=== PATIENT | male | born 1955 | race Caucasian/White ===

== ENCOUNTER 2020-12-04 11:26 | Outpatient (CLI) | payer OTHER, SELFPAY | END 2020-12-04 11:27 | disposition home or self-care (01) | LOC: ANHCOVIDVC 11:26 | PROVIDERS: PCP Family Medicine | DX: Z23 Encounter for immunization (principal) | CPT/HCPCS: 0001A; 91300 ==

== ENCOUNTER 2020-12-25 11:24 | Outpatient (CLI) | payer OTHER, SELFPAY | END 2020-12-25 11:25 | disposition home or self-care (01) | LOC: ANHCOVIDVC 11:25 | PROVIDERS: PCP Family Medicine | DX: Z23 Encounter for immunization (principal) | CPT/HCPCS: 0002A; 91300 ==

== ENCOUNTER 2021-08-05 09:28 | Outpatient (CLI) | payer OTHER, SELFPAY ==
--- NOTE | ~2021-08-05 | US_ITS ---
EXAMINATION: US art doppler w danie FERNANDEZ EXAM DATE: 08/05/2021 10:16 INDICATION: R60.0 - Localized edema TECHNIQUE: Segmental pressures and plethysmographic and Doppler waveforms of the brachial and lower e xtremity arteries were obtained. There is no prior study for comparison. FINDINGS: Right and left brachial artery pressures of 135 mm Hg and 153 mm Hg, respectively, are concordant (no rmal difference <= 30 mmHg). The right and left thigh-brachial pressure indices are 1.12, 1.27, resp ectively (normal > 1.2). RIGHT LEG: The ankle-brachial index (ELVIRA) is 1.28 (normal >= 0.9-1). The great toe-brachial index (TBI) is 0.65 (normal >= 0.65). The lower extremity ratios, segmental pressure gradients as follows; Proximal superficial femoral artery:- 1.12 (172 mmHg). Distal superficial femoral artery: ----- 1.16 (177 mmHg). Popliteal: 1.07 (164 mmHg). Dorsalis pedis: 1.17 (179 mmHg). Posterior tibial: 1.28 (196 mmHg). (Normal gradients <= 20-30 mmHg between adjacent levels on the same leg or the same levels on the two legs). Arterial waveforms are biphasic. LEFT LEG: The ankle-brachial index (ELVIRA) is 1.12 (normal >= 0.9-1). The great toe-brachial index (TBI) is 0.66 (normal >= 0.65). The lower extremity ratios, segmental pressure gradients as follows; Proximal superficial femoral artery:- 1.27 (195 mmHg). Distal superficial femoral artery: ----- 1.12 (171 mmHg). Popliteal: 1.17 (179 mmHg). Dorsalis pedis: 1.10 (168 mmHg). Posterior tibial: 1.10 (169 mmHg). (Normal gradients <= 20-30 mmHg between adjacent levels on the same leg or the same levels on the two legs). Arterial waveforms are biphasic through posterior tibial, m onophasic dorsalis pedis. IMPRESSION: 1. Right ankle-brachial index 1.28, normal. 2. Left ankle-brachial index 1.10, normal. 3. Segmental pressures as above. Reviewed, dictated and finalized at location B. HEALTH CASE MANAGER
--- NOTE | ~2021-08-05 | US_ITS ---
EXAMINATION: US venous doppler LE EXAM DATE: 08/05/2021 10:16 INDICATION: R60.0 - Localized edema. Right toe edema. TECHNIQUE: Multiple grayscale, color flow and Doppler images of the lower extremity deep venous syste ms bilaterally were obtained and reviewed. There is no prior study for comparison. FINDINGS: Right side: The right common femoral, femoral and profunda veins demonstrate normal color flow, respi ratory variation, augmentation and compressibility. Compressibility, color flow confirmed within the right popliteal, posterior tibial, peroneal, and greater saphenous veins. Left side: The left common femoral, femoral and profunda veins demonstrate normal color flow, respira tory variation, augmentation and compressibility. Compressibility, color flow confirmed within the l eft popliteal, posterior tibial, peroneal, and greater saphenous veins. IMPRESSION: No lower extremity deep venous thrombosis bilaterally. Reviewed, dictated and finalized at location B. HOUSE SPECIALIST
== END 2021-08-05 09:29 | disposition home or self-care (01) ==
LOC: ANHIMG 09:33
PROVIDERS: PCP Family Medicine; Visit Provider Nurse Practitioner Family
DX: R60.0 Localized edema (principal); M79.89 Other specified soft tissue disorders; L81.9 Disorder of pigmentation, unspecified; E78.5 Hyperlipidemia, unspecified; G62.9 Polyneuropathy, unspecified; I10 Essential (primary) hypertension
CPT/HCPCS: 93923; 93970

== ENCOUNTER → 2021-10-01 09:57 | Outpatient (CLI) | payer OTHER, SELFPAY ==
--- NOTE | ~2021-10-01 | XR_ITS ---
XR foot RT 2V DATE: 10/01/2021 10:16 INDICATION: Localized edema TECHNIQUE: 3 views COMPARISON: None FINDINGS: Mild plantar calcaneal enthesopathy without erosive change or periostitis. There is prominent osteoarthritic change at the first metatarsophalangeal joint. No fracture or dislocation, periosteal reaction or bone destruction. Anterior and posterior tibial artery calcification. 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 NTEER SERVICES SUPERVISOR
== END ==
PROVIDERS: PCP Family Medicine; Visit Provider Nurse Practitioner Family
DX: R60.0 Localized edema (principal); M10.9 Gout, unspecified; M77.31 Calcaneal spur, right foot; M19.071 Primary osteoarthritis, right ankle and foot
CPT/HCPCS: 73620

== ENCOUNTER 2022-03-04 09:32 | Outpatient (CLI) | payer OTHER, SELFPAY ==
--- NOTE | ~2022-03-04 | XR_ITS ---
EXAMINATION: XR abdomen/kub 1V DATE: 03/04/2022 09:54 INDICATION: Left abdominal pain. TECHNIQUE: A supine view of the abdomen on 2 radiographs was obtained. COMPARISON: Abdomen radiographs 03/19/2014, CT abdomen and pelvis 02/28/2007 FINDINGS: There are no dilated loops of bowel. There are phleboliths in the pelvis. The kidneys are o bscured by bowel. There is a 2 mm calcification overlying the right kidney that may be a stone. There are two 2-3 mm stones in left kidney. IMPRESSION: 1. Small stones in the kidneys. Reviewed, dictated and finalized at location A.
== END 2022-03-04 09:33 | disposition home or self-care (01) ==
LOC: ANHIMG 09:34
PROVIDERS: PCP Family Medicine; Visit Provider Nurse Practitioner Family
DX: N20.0 Calculus of kidney (principal); R10.9 Unspecified abdominal pain; Z87.442 Personal history of urinary calculi
CPT/HCPCS: 74018

== ENCOUNTER 2023-11-03 07:29 | Outpatient (CLI) | payer MEDICARE, SELFPAY ==
--- NOTE | ~2023-11-03 | US_ITS ---
EXAMINATION: US abdomen limited DATE: 11/03/2023 08:35 INDICATION: Abnormal levels of other serum enzymes. TECHNIQUE: Multiple grayscale and Doppler ultrasound images of the abdomen were obtained. COMPARISON: None FINDINGS: The pancreatic head and body are normal in appearance. The pancreatic tail is not visualized. Liver has normal contour, with a smooth surface. There is increased parenchymal echogenicity and coarsened echotexture consistent with diffuse hepatic steatosis. No liver lesion identified. No intrahepatic b iliary duct dilation suspected. Portal venous flow was seen in the hepatopetal, normal direction and has normal Doppler waveform. Visualized portion of the right kidney demonstrates normal contour and a xis the with no hydronephrosis. The gallbladder is normal in appearance. There is no cholelithiasis. The common bile duct measures 5 mm, which is normal. Sonographic Floyd sign was reported as negativ e by the hoop flaring machine operator. IMPRESSION: 1. Diffuse hepatic steatosis. Reviewed, dictated and finalized at location L.
== END 2023-11-03 07:30 | disposition home or self-care (01) ==
PROVIDERS: PCP Family Medicine; Visit Provider Nurse Practitioner Family
DX: R74.8 Abnormal levels of other serum enzymes (principal); K76.0 Fatty (change of) liver, not elsewhere classified
CPT/HCPCS: 76705

== ENCOUNTER 2024-11-09 16:02 | Inpatient (IN) | payer MEDICARE, SELFPAY ==
[2024-11-09] VITALS (23 sets, daily range): BP systolic 114–140; BP diastolic 80–96; PULSE 85–121; RESP 18–31; TEMP 36.7–37.2; O2SAT 91–100; BMI 27.1
--- NOTE | ~2024-11-09 | CT_ITS ---
History: Cardiac arrest PROCEDURE: CT head without contrast. COMPARISON: None TECHNIQUE: Axial imaging of the head performed from the skull base to the vertex without IV contrast. Sagittal a nd coronal reformations obtained. DLP: 757 mGy-cm FINDINGS: The ventricles are normal in size, shape and position. There is no mass, mass effect or midline shift. Effacement of the sulci within the posterior cranial fossa is identified. This is likely secondary to edema. Increased attenuation is identified within the venous sinuses as well as the falx and all visualized intracranial vascular structures, suggesting increased intravascular density, rather than acute intra cranial hemorrhage. There is no abnormal extra-axial fluid collection or acute intracranial hemorrhage. Inflammatory change within the bilateral ethmoid and left maxillary sinus. The mastoid air cells are well aerated. No acute displaced fractures within the overlying cranium. Impression: Global intracranial parenchymal edema without acute intracranial hemorrhage or suspicious mass effect , as detailed above. Short-term follow-up is recommended. Reviewed, dictated and finalized at location A. Impression: Global intracranial parenchymal edema without acute intracranial hemorrhage or suspicious mass effect, as detailed above. Short-term follow-up is recommended.
--- NOTE | ~2024-11-09 | XR_ITS ---
XR chest 1V portable 11/10/2024 06:15 Indication: Intubation. Respiratory distress. Procedure: AP portable chest Comparison: No prior studies for comparison. Findings: Heart size normal. Endotracheal tube tip 7.2 cm above the booker. Heart size normal. Mild p ulmonary vascular congestion. No significant effusion or pneumothorax. NG tube in the stomach. Impression: 1: Mild pulmonary vascular congestion. Reviewed, dictated and finalized at location B. Impression: 1: Mild pulmonary vascular congestion.
--- NOTE | ~2024-11-09 | CT_ITS ---
CLINICAL INDICATION: Cardiac arrest COMPARISON: 02/02/2007 TECHNIQUE: Multiple contiguous axial images of the chest, abdomen and pelvis were performed without t he administration of intravenous contrast The dose-length product (DLP) was 1520.66 mGy-cm. Automated exposure control and iterative reconstruction technique were employed. FINDINGS/OBSERVATIONS: LUNG:Endotracheal tube identified with its tip in the thoracic inlet, in good position. Calcified granulomas detected bilaterally. Dense atelectasis within the bilateral lung bases. The remainder of the lungs are otherwise clear. MEDIASTINUM:Orogastric tube extends into the stomach.Limited evaluation of the remainder of the media stinum without intravenous contrast. HEART: The heart is of normal size, without pericardial effusion. SOFT TISSUES OF THE CHEST: Unremarkable. BONES OF THE CHEST: Acute fracture of the right anterolateral rib. No additional fractures are appreciated. No significant degenerative disease is noted. Liver: The liver demonstrates homogeneous attenuation and is not enlarged measuring 16 cm in longitudinal di mension. Gallbladder and biliary system: The gallbladder is only minimally distended, and otherwise unremarkable. Pancreas: Limited evaluation of the pancreas secondary to the lack of intravenous contrast. Spleen: The spleen demonstrates homogeneous attenuation and is not enlarged measuring 8 cm in longitudinal di mension. Kidneys: The bilateral kidneys demonstrate contrast excretion, consistent with patient's history. No hydronephrosis or renal calculi. Adrenal glands: Unremarkable. Gastrointestinal tract: Colonic diverticulosis without surrounding inflammatory change. Appendix: The appendix is not definitively visualized. However, no pericecal inflammatory change is identified suggest the presence of acute appendicitis. Vasculature: Calcified atherosclerotic disease. No abnormal soft tissue attenuation within the bilateral groins mckeon ggesting vascular access vascular access. Lymph nodes: Limited evaluation without intravenous contrast. Pelvic structures: The bladder is decompressed Hess catheter, limiting its evaluation. The prostate gland is not enlarged. Body wall and musculoskeletal: No significant degenerative disease within the lower thoracic or lumbosacral spine. IMPRESSION: Acute fracture involving the anterolateral margin of the right sixth rib, likely from patient's CPR. No additional acute findings within the chest, abdomen or pelvis, as detailed above. Reviewed, dictated and finalized at location A. IMPRESSION: Acute fracture involving the anterolateral margin of the right sixth rib, likel y from patient's CPR. No additional acute findings within the chest, abdomen or pelvis, as detailed above.
--- NOTE | ~2024-11-09 | XR_ITS ---
XR chest-chest tube insert/pos DATE: 11/10/2024 15:27 INDICATION: Left tension pneumothorax TECHNIQUE: Portable upright AP chest on 11/10/2024 at 1520 hours COMPARISON: 11/10/2024 portable AP chest at 1352 hours FINDINGS: There is interval placement of a left chest tube and virtually complete resolution of left tension pneumothorax. There is infiltrate and/atelectasis involving primarily the left lower lung. There is interval approximately 2.4 cm right apical pneumothorax. IMPRESSION: Placement of left thoracostomy tube removal with resolution of left tension pneumothorax. Interval mild right pneumothorax Dr. Olivares telephoned the report of new right pneumothorax on 11/10/2024 at 1635 hours to ICU nurse Sarahi amaya Reviewed, dictated and finalized at [facility]. Reviewed, dictated and finalized at [facility]. IMPRESSION: Placement of left thoracostomy tube removal with resolution of left tension pneumothorax. Interval mild right pneumothorax Dr. Olivares telephoned the report of new right pneumothorax on 11/10/2024 at 1635 h ours to ICU nurse Reyna
--- NOTE | ~2024-11-09 | XR_ITS ---
CHEST RADIOGRAPH CLINICAL HISTORY: Respiratory failure, cardiac arrest . COMPARISON: 11/10/2024 TECHNIQUE: Single portable view of the chest. FINDINGS Left-sided chest tube in position. Findings suggesting pneumomediastinum. Redemonstration of a right-sided pneumothorax, increased in size from previous examination, with 21 m m of separation (approximately 15%). Endotracheal tube is identified with its tip projecting approximately 3.4 cm above the base of the ca mainor. Nasogastric tube identified with its tip extending below the left hemidiaphragm, presumably within th e stomach. The remainder of the cardiomediastinal silhouette is otherwise unremarkable. Blunting of the left costophrenic sulcus suggesting a small left-sided pleural effusion. The remainder of the lungs are clear. IMPRESSION: Redemonstration of a right-sided pneumothorax, increased in size from previous examination, now appro ximately 15%. The left lung is fully inflated. Findings suggesting pneumomediastinum. Small left-sided pleural effusion. The remainder of the lungs are clear. Remaining supportive lines and tubes in good position. Reviewed, dictated and finalized at location [facility]. IMPRESSION: Redemonstration of a right-sided pneumothorax, increased in size from previous examination, now approximately 15%. The left lung is fully inflated. Findings suggesting pneumomediastinum. Small left-sided pleural effusion. The remainder of the lungs are clear. Remaining supportive lines and tubes in good position.
--- NOTE | ~2024-11-09 | XR_ITS ---
XR abdomen gastric tube insert DATE: 11/10/2024 15:40 INDICATION: NG tube readvanced but TECHNIQUE: Portable upright AP view on 11/10/2024 at 1522 hours COMPARISON: 11/09/2024 KUB FINDINGS: NG tube is in satisfactory position in the stomach. IMPRESSION: NG tube in stomach Reviewed, dictated and finalized at [facility]. Reviewed, dictated and finalized at [facility]. IMPRESSION: NG tube in stomach
--- NOTE | ~2024-11-09 | XR_ITS ---
XR chest 1V portable 11/09/2024 16:28 Indication: Confirm placement. Procedure: AP portable chest Comparison: No prior studies for comparison. Findings: Heart size normal. No focal air space disease, pulmonary edema, pleural effusion or suspect ed pneumothorax. Impression: 1: No acute cardiopulmonary disease. Reviewed, dictated and finalized at [facility]. Impression: 1: No acute cardiopulmonary disease.
--- NOTE | ~2024-11-09 | XR_ITS ---
CHEST RADIOGRAPH CLINICAL HISTORY: ett placement . Orogastric tube placement COMPARISON: 11/09/2024 at 4:20 PM approximately 2 hours earlier TECHNIQUE: Single portable view of the chest. Supine images of the lower chest and upper abdomen FINDINGS Endotracheal tube is identified with its tip projecting approximately 5 cm above the base of the gloria na, advancement of approximately 2 cm is suggested for optimal radiographic placement. Orogastric tube identified with its tip extending below the left hemidiaphragm, and projecting over t he stomach. Clip projects over the left atrial appendage. The remainder of the cardiomediastinal silhouette is otherwise unremarkable. The lungs are clear. IMPRESSION: Orogastric tube in good position and ready for immediate use. Endotracheal tube tip projects approximately 5 cm above the base of the booker for which advancement of approximately 2 cm is suggested for optimal radiographic placement. The lungs are clear. Reviewed, dictated and finalized at [facility]. IMPRESSION: Orogastric tube in good position and ready for immediate use. Endotracheal tube tip projects approximately 5 cm above the base of the booker for which advancement of approximately 2 cm is suggested for optimal radiograph ic placement. The lungs are clear.
--- NOTE | ~2024-11-09 | XR_ITS ---
CHEST RADIOGRAPH CLINICAL HISTORY: chest tube placement . COMPARISON: Previous examination, performed on the same day, approximately 6 hours earlier TECHNIQUE: Single portable view of the chest. FINDINGS Redemonstration of a left-sided large bore chest tube extending into the left lung apex. The left lung is fully inflated. Redemonstration of a right-sided pneumothorax, with 21 mm of separation, largely unchanged from prior . Interval placement of a large bore chest tube within the right hemithorax, extending into the sulcus for which withdrawal/repositioning into the apex may provide the necessary suction for reexpansion (v ersus placement with CT guidance). Endotracheal tube tip projects approximately 4.5 cm above the base of the booker. Orogastric tube in good position. IMPRESSION: Persistent right-sided pneumothorax likely secondary to positioning of the tube within a sulcus for w hich withdrawal/repositioning into the apex may provide the necessary suction for reexpansion of the right lung. No evidence of mediastinal shift. The left lung is fully inflated. Remaining support catheters and tubes are in good position. Reviewed, dictated and finalized at location [facility]. IMPRESSION: Persistent right-sided pneumothorax likely secondary to positioning of the tube within a sulcus for which withdrawal/repositioning into the apex may provide t he necessary suction for reexpansion of the right lung. No evidence of mediastinal shift. The left lung is fully inflated. Remaining support catheters and tubes are in good position.
--- NOTE | ~2024-11-09 | XR_ITS ---
XR chest 1V portable 11/10/2024 13:57 Indication: Respiratory distress Procedure: AP view of the chest Comparison: 11/10/2024 Findings: There is a new large left pneumothorax which is obscured by overlying lines. There is media stinal shift to the right. There is opacification the right hemithorax which may reflect edema. Heart size normal. NG tube tip in the stomach. Recommend advancement. Endotracheal tube tip approximately 5.1 cm above the booker. Impression: 1: New large left pneumothorax with mediastinal shift to the right. 2: Interval development of opacification of the right hemithorax which may reflect atelectasis or magy ma. Dr. Efren Reddy discussed with the patient's nurse Severo Lovett at 11/10/2024 14:03 CDT. Reviewed, dictated and finalized at location [facility]. Impression: 1: New large left pneumothorax with mediastinal shift to the right. 2: Interval development of opacification of the right hemithorax which may refl ect atelectasis or edema. Dr. Efren Reddy discussed with the patient's nurse Severo Lovett at 11/10/2024 14 :03 CDT.
--- NOTE | 2024-11-09 16:16 | ECG_ITS ---
Test Date: 2024-11-09 16:07:36 Measurements Intervals [place] Rate: 91 P: 0 OK: 0 QRS: -7 QRSD: 96 T: 1 QT: 397 QTc: 490 Interpretive Statements POSSIBLE ATRIAL FIBRILLATION MARKED ST ELEVATION IN THE INFEROLATERAL LEADS ACUTE NC No previous ECG available for comparison Electronically Signed On 11-09-2024 18:40:51 CDT by Landen Mercer M.D.
--- NOTE | 2024-11-09 16:19 | ED_ITS ---
HPI - CPR General Chief Complaint: Cardiac Arrest/CPR Stated Complaint: ROSC/STEMI Time Seen by Provider: 11/09/24 16:13 Source: family ( and daughter) and EMS Mode of arrival: EMS Limitations: clinical condition History of Present Illness HPI narrative: EMS was called for a patient unconscious but breathing, possibly agonal. It is reported that patient had been complaining of gas and chest pain for the past week, thought to be reflux. Lost pulses on scene and CPR immediately initiated. BS 86mg/dL. Initially attempted iGel but difficulty so intubated. Initially bagging well but then with difficulty. Tube removed and in doing so removed what appeared to be bread, presumably patient choked. Patient deep suctioned and Patient re-intubated - size 7 ETT 24 at the teeth. Patient received 2 doses of epinephrine. First pulse check pulseless with VFib. Defibrillated x1. Total compressions 10 minutes (2 manually and 8 minutes Faisal device). ROSC with patient breathing. Given 10 Versed total for sedation. Access Left antecubital fossa and left IO. Post ROSC EKG concerning for STEMi given elevations in II, III, avf. and daughter confirm he had been complaining of what he thought was heartburn/indigestion. Related Data Allergies Allergy/AdvReac Type Severity Reaction Status Date / Time Penicillins Allergy Unknown Unknown Verified 11/09/24 16:35 ezetimibe (From Zetia) AdvReac Mild Gastrointestinal Verified 11/09/24 16:35 Upset [id number] Reductase AdvReac Mild Muscle Pain Verified 11/09/24 16:35 Inhibitor PMFSH Past Medical History Medical History Screening for malignant neoplasm of prostate declined Hyperlipidemia BMI 25.0-25.9,adult Body mass index [BMI] 25.0-25.9, adult (12/08/16) Pain in both feet Pain in left foot Peripheral polyneuropathy Tarsal tunnel syndrome of both lower extremities Hypertension History of kidney stones BMI 26.0-26.9,adult Family History Family History Mother Hypertension Father Cancer of kidney Lung cancer Tobacco abuse Sibling Lung cancer Tobacco abuse Social History Social History Smoking packs per day: 2 Smoking cigarettes per day: 40.0 Years smoked: 30 Smoking pack-years: 60.00 Smoking status: Former smoker Tobacco type: cigarettes Second hand tobacco smoke exposure: No Smoking end date: 08/12/05 Alcohol intake: current Drinks per week: 30 Substance use: never Substance use type: does not use Do You Feel Safe in your Home?: Yes Lack of Transportation: No Lack of Food: Never True Current Housing: I Have Housing Concerned About Future Housing: No Difficulty Paying Gas/Electric Bills: No Difficulty Paying for Meds: No Currently Unemployed: No Education: Trade/Vocational Certificate Difficulty w/ Childcare or Family Care: No Living arrangements: with family Occupation/Education: retired Additional occupation/education comments: [employer] Gender identity (if verbalized by the patient): Male Spiritual care concerns: No Exam 2 Narrative: GENERAL: well-nourished, HEAD: Normocephalic, atraumatic. No signs of trauma EYES: Non injected, non icteric. ENT: Nares clear, no rhinorrhea or epistaxis. ETT in place. CHEST: Assisted with ventilation via BVM. Clear breath sounds on the R, slightly diminished on the left. HEART: Pulses present . ABDOMEN: Soft, nondistended. EXTREMITIES: No lower extremity edema. IO in place left proximal tibia. SKIN: Warm, dry, no rash. NEURO: Initial decorticate posturing then decerebrate posturing. Agitated intermittently during ventilation. Fasciculations, particularly appreciated along right anteromedial thigh. : Normal external male genitalia. Course Vital Signs Vital signs: Vital Signs Pulse Rate 88 11/09/24 16:13 Oxygen Delivery Mechanical Ventilation 11/09/24 16:13 Temperature 98.4 F 11/10/24 00:45 Pulse Rate 83 11/10/24 00:45 Respiratory Rate 22 H 11/10/24 00:45 Blood Pressure 105/80 11/10/24 00:45 Pulse Oximetry 96 11/10/24 00:45 Oxygen Delivery Mechanical Ventilation 11/09/24 23:03 Fraction of Inspired Oxygen 50 11/09/24 23:03 MDM - Cardiac Arrest/CPR MDM Narrative Medical decision making narrative: Patient presents as a cardiopulmonary arrest s/p ROSC. COmplaining of chest pain/gas/indigestion/heartburn recently. EMS called for unconscious but breathing patient. Agonal breaths on primary assessment then lost pulses. 10 minutes total compressions, 2 rounds epi, debrillated x1 for Vfib. Intubated but then ETT withdrawn due to poor bagging. Upon removal, bread in tube, patient deep suctioned and re-intubated. Post ROSC EKG concerning for STEMI. In the ED he is afebrile with VS that initially document mild hypoxia. Although there is evidence that patient presumably choked, and thus respiratory arrest may have led to cardiac arrest, given the patient's preceding complaints, there is also high concern that he had an ID and then choked leading to respiratory arrest. Discussed with Dr Mercer who concurs with STEMI. Patient placed on mechanical ventilator. Hess placed. Labs drawn and sent. OG/ NG multiple attempts unsuccessful. Patient received heparin bolus and gtt ordered. ASA and Brilinta ordered but not yet given by the time cath team transported patient due to no gastric access yet. Discussed with family and informed of plan. === Critical Care: 1 or more vital organ systems impaired with a high probability of imminent or life-threatening deterioration in the patient's condition requiring frequent personal assessment and manipulation of the patient's condition. This included time spent evaluating the patient, speaking with EMS pre-hospital personnel and family, reviewing/interpreting laboratory/imaging studies, discussing the case with consultants or admitting teams, retrieving data and reviewing charts, monitoring for decompensation, documenting the visit, and performing bundled procedures exclusive of separately billed procedures. Differential Diagnosis Differential diagnosis: Likely acute massive pulmonary embolism, acute respiratory failure, acute myocardial infarction, cardiac arrest and sudden cardiac Lab Data Attestation: I reviewed the patient's lab results. Lab results narrative: Resulted after patient has left ED. Leukocytosis. Anemia, Mild thrombocytopenia. 11/09/24 20:44 11/09/24 18:25 Imaging Data My impression: Limited study Radiologist's impression: Impression: 1: No acute cardiopulmonary disease. ECG Data EKG #1: Attestation: I personally reviewed and interpreted this ECG as follows: ECG completion date: 11/09/24 ECG completion time: 16:07 Interpretation: Questionable P-waves precede some QRS complexes however it is a regular rhythm thus presumably atrial fibrillation although sinus rhythm with an AV block also possible. Rate 91 beats per minute. QRS 96. QT/QTC 397/446. There is ST segment elevation in 2, 3, and AVF as well as depression in V2. There also appears to be ST-elevation in V3, V4, V5, and V6. ST depression aVL. Critical Care Time Critical Care Time Critical Care Time: Yes Total Critical Care Time: 35 Discharge Plan Discharge Clinical Impression: ST elevation (STEMI) myocardial infarction, Cardiac arrest with successful resuscitation, Leukocytosis, Anemia, Thrombocytopenia Patient Disposition: Still a Patient Condition: Serious
[2024-11-09] MEDS: fentaNYL CITRATE INJ (*CRX) 100 MCG/2 ML VIAL 50 MCG IV PUSH (16:26)
[2024-11-09] MEDS: HEPARIN SODIUM 5,000 UNITS/ML VIAL 4000 UNITS IV PUSH (16:26)
--- NOTE | 2024-11-09 16:36 | PC.NURSE ---
1614 Pt arrived to ER after witnessed arrest. Pt manually bag without difficulty & maintaining Sa02. ROSC obtained on scene. EKG showing ST elevation. Dr. Rose, Resp & mechanical laboratory technician personnel at bedside. Attempted NG/OG x3 unsuccessful. Per oil laboratory analyst personnel will insert in oil laboratory analyst. Meds sent with Maria L NORIEGA. cath lab technologist performed shave prep, [place] inserted. Vent settings as per charted by RT. Heparin bolus given. 1627 Pt transferred to Superintendent Maintenance with drafter electronic, resp therapy
--- NOTE | 2024-11-09 17:44 | ECG_ITS ---
Test Date: 2024-11-09 19:22:53 Measurements Intervals [place] Rate: 100 P: 123 [place]: 191 QRS: 199 QRSD: 81 T: 193 QT: 357 QTc: 460 Interpretive Statements SINUS TACHYCARDIA ARM LEADS REVERSED [INVERTED P AND QRS IN I] IMPROVEMENT IN THE INFEROR ST ELEVATIONS Compared to ECG 11/09/2024 16:07:36 IMPROVEMENT IN THE INFEROR ST ELEVATIONS Electronically Signed On 11-10-2024 17:29:45 CDT by Landen Mercer M.D.
--- NOTE | 2024-11-09 17:46 | P.HP_ITS ---
H&P: HPI History of Present Illness Date/Time: 11/09/24 17:46 Chief Complaint: Cardiac arrest, STEMI Narrative: Ralf is a 68 year old male with hypertension, neuropathy, erectile dysfunction who presented to [place] with cardiac arrest, STEMI. Patient intubated therefore unable to obtain any history from the patient. History obtained from chart and medical team. Apparently he had been having chest pain over past week. May have been choking on some food -- piece of bread was removed during the intubation process. At some point, he went into cardiac arrest (uncertain what the initial arresting rhythm was). Had some VF during the arrest, for which he was defibrillated once. Chest compressions for about 10 minutes. EMS EKG shows inferolateral STEMI. EKG in the ED confirms inferolateral STEMI. Cath team ac tivated. Review of Systems Review of Systems: ROS unobtainable: Yes unobtainable due to endotracheal tube PMFSH Past Medical History Medical History Screening for malignant neoplasm of prostate declined Hyperlipidemia BMI 25.0-25.9,adult Body mass index [BMI] 25.0-25.9, adult (12/08/16) Pain in both feet Pain in left foot Peripheral polyneuropathy Tarsal tunnel syndrome of both lower extremities Hypertension History of kidney stones BMI 26.0-26.9,adult Family History Family History Mother Hypertension Father Cancer of kidney Lung cancer Tobacco abuse Sibling Lung cancer Tobacco abuse Social History Social History Smoking status: Former smoker Tobacco type: cigarettes Second hand tobacco smoke exposure: No Smoking end date: 08/12/05 Alcohol intake: current Drinks per week: 5 Substance use: never Substance use type: does not use Do You Feel Safe in your Home?: Yes Lack of Transportation: No Lack of Food: Never True Current Housing: I Have Housing Concerned About Future Housing: No Difficulty Paying Gas/Electric Bills: No Difficulty Paying for Meds: No Currently Unemployed: No Education: Trade/Vocational Certificate Difficulty w/ Childcare or Family Care: No Living arrangements: with family 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 Gender identity (if verbalized by the patient): Male Meds Home Medications and Allergies Home Medications ?Medication ?Instructions ?Recorded ?Confirmed ?Type nebivolol 10 mg tablet (Bystolic) 10 mg PO DAILY #90 tabs 03/30/24 10/08/24 Rx gabapentin 300 mg capsule 300 mg PO BID #180 caps 04/05/24 10/08/24 Rx omeprazole 20 mg capsule,delayed 20 mg PO DAILY #90 caps 04/05/24 10/08/24 Rx release sildenafil 25 mg tablet 25 mg PO DAILY PRN sexual activity 04/05/24 10/08/24 Rx #10 tabs Allergies Allergy/AdvReac Type Severity Reaction Status Date / Time Penicillins Allergy Unknown Unknown Verified 11/09/24 16:35 ezetimibe (From Zetia) AdvReac Mild Gastrointestinal Verified 11/09/24 16:35 Upset [id number]-[id number] Reductase AdvReac Mild Muscle Pain Verified 11/09/24 16:35 Inhibitor Vital Signs Vital Signs - 24 hr 11/09/24 16:13 11/09/24 16:13 11/09/24 16:15 Pulse Rate 88 85 Respiratory Rate 18 Blood Pressure 114/85 Pulse Oximetry 93 Oxygen Delivery Mechanical Ventilation Bag Valve Mask Fraction of Inspired Oxygen 11/09/24 16:47 Pulse Rate 98 Respiratory Rate Blood Pressure Pulse Oximetry 94 Oxygen Delivery Mechanical Ventilation Fraction of Inspired Oxygen 100 Exam Const: Other: Critically ill male, intubated. Not on any drips HENMT: Other: OETT in place Resp: Other: On mechanical ventilation Cardio: Rhythm: abnormal rhythm irregularly irregular Assessment and Plan Assessment and plan (1) STEMI (ST elevation myocardial infarction): Code(s): I21.3 - ST elevation (STEMI) myocardial infarction of unspecified site Status: Acute Plan 1. Inferolateral STEMI 2. Cardiac arrest, presumably VFIB 3. Possible atrial fibrillation 4. Hypertension 5. Acute respiratory failure, requiring mechanical ventilation. PLAN: -Admit to ICU. -S/p emergent cath with primary PCI to the mid RCA with NELLA X 1. Had large thrombus burden with distal embolization to the RPDA. Will do Integrilin drip for 18 hours. -ASA 81mg once daily indefinitely. -Brilinta 90mg BID for at least 1 year. -High intensity statin. -Echocardiogram. -Initial EKG with possible AFIB. May be ischemic AFIB. Will repeat EKG post cath and monitor on tele. -Hypothermia protocol. Recommendations and plan discussed with ICU Physician.
--- NOTE | 2024-11-09 17:56 | P.SEDATION_ITS ---
Moderate Sedation Note-Pt Data Patient Data Diagnosis: STEMI Present Complaint: STEMI Procedure to be performed/Plan: Primary PCI Allergies Allergy/AdvReac Type Severity Reaction Status Date / Time Penicillins Allergy Unknown Unknown Verified 11/09/24 16:35 ezetimibe (From Zetia) AdvReac Mild Gastrointestinal Verified 11/09/24 16:35 Upset [id number] Reductase AdvReac Mild Muscle Pain Verified 11/09/24 16:35 Inhibitor Home Medications ?Medication ?Instructions ?Recorded ?Confirmed ?Type nebivolol 10 mg tablet (Bystolic) 10 mg PO DAILY #90 tabs 03/30/24 10/08/24 Rx gabapentin 300 mg capsule 300 mg PO BID #180 caps 04/05/24 10/08/24 Rx omeprazole 20 mg capsule,delayed 20 mg PO DAILY #90 caps 04/05/24 10/08/24 Rx release sildenafil 25 mg tablet 25 mg PO DAILY PRN sexual activity 04/05/24 10/08/24 Rx #10 tabs Current Medications: Active Medications Aspirin (Aspirin 81 Mg Enteric Tablet) 81 mg PO QAM SAMY Atorvastatin Calcium (Atorvastatin 40 Mg Tablet) 80 mg PO DAILY SAMY Eptifibatide (Integrilin) 75 mg in 100 mls @ 15.68 mls/hr IV CONT .Q6H23M SAMY Stop: 11/10/24 11:44 Multi-Ingred Cream/Lotion/Oil/Oint (Mineral Oil/White Petrolatum Ointment) 1 applic EACH EYE Q12HR SAMY Perflutren Lipid Microsphere (Perflutren Lipid Microspheres 1.5 Ml Vial Diluted To 10 Ml Total Volume) 0 ml IV PUSH ONCE PRN; Protocol PRN Reason: adequate visualization Stop: 11/12/24 17:43 Ticagrelor (Ticagrelor 90 Mg Tablet) 90 mg PO Q12HR SAMY Sedation/Anesthesia: No previous sedation/anesthesia problems (including family history). [facility] Past Medical History Medical History Screening for malignant neoplasm of prostate declined Hyperlipidemia BMI 25.0-25.9,adult Body mass index [BMI] 25.0-25.9, adult (12/08/16) Pain in both feet Pain in left foot Peripheral polyneuropathy Tarsal tunnel syndrome of both lower extremities Hypertension History of kidney stones BMI 26.0-26.9,adult Family History Family History Mother Hypertension Father Cancer of kidney Lung cancer Tobacco abuse Sibling Lung cancer Tobacco abuse Social History Social History Smoking status: Former smoker Tobacco type: cigarettes Second hand tobacco smoke exposure: No Smoking end date: 08/12/05 Alcohol intake: current Drinks per week: 5 Substance use: never Substance use type: does not use Do You Feel Safe in your Home?: Yes Lack of Transportation: No Lack of Food: Never True Current Housing: I Have Housing Concerned About Future Housing: No Difficulty Paying Gas/Electric Bills: No Difficulty Paying for Meds: No Currently Unemployed: No Education: Trade/Vocational Certificate Difficulty w/ Childcare or Family Care: No Living arrangements: with family 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 ) Internal Medicine - PN: Obj Da Vital Signs Vital Signs: Vital Signs - 24 hr 11/09/24 16:13 11/09/24 16:13 11/09/24 16:15 Pulse Rate 88 85 Respiratory Rate 18 Blood Pressure 114/85 Pulse Oximetry 93 Oxygen Delivery Mechanical Ventilation Bag Valve Mask Fraction of Inspired Oxygen 11/09/24 16:47 Pulse Rate 98 Respiratory Rate Blood Pressure Pulse Oximetry 94 Oxygen Delivery Mechanical Ventilation Fraction of Inspired Oxygen 100 Meds/Results Medications: Active Medications Generic Name Dose Route Start Last Admin Trade Name Freq PRN Reason Stop Dose Admin Aspirin 81 mg 11/10/24 09:00 Aspirin 81 Mg Enteric Tablet PO QAM SAMY Atorvastatin Calcium 80 mg 11/09/24 17:45 Atorvastatin 40 Mg Tablet PO DAILY SAMY Eptifibatide 75 mg in 100 mls @ 15.68 mls/hr 11/09/24 17:45 Integrilin IV CONT 11/10/24 11:44 .Q6H23M SAMY 2 MCG/KG/MIN Multi-Ingred Cream/Lotion/Oil/Oint 1 applic 11/09/24 21:00 Mineral Oil/White Petrolatum Ointment EACH EYE Q12HR [facility] Perflutren Lipid Microsphere 0 ml 11/09/24 17:43 Perflutren Lipid Microspheres 1.5 Ml Vial Diluted To 10 Ml Total Volume IV PUSH 11/12/24 17:43 ONCE PRN adequate visualization Protocol Ticagrelor 90 mg 11/09/24 21:00 Ticagrelor 90 Mg Tablet PO Q12HR [facility] Radiology Results: ITS Impressions Chest X-Ray 11/09/24 16:31 Impression: 1: No acute cardiopulmonary disease. ASA Classification/Sedation ASA Classification/Sedation ASA Class: IV Emergent: Yes
--- NOTE | 2024-11-09 17:57 | WPDCARDPROC ---
Cardiac Cath Procedure Note Date of procedure:: 11/09/24 Performing physician:: CATHETERIZATION LABORATORY REPORT Procedure Date: 11/09/2024 Hub Inventory Specialist: Landen Mercer M.D., [facility]? Referring Physician: Judit Rose M.D. Anesthesia: Versed and Fentanyl were ordered and given in my presence at 16:54, procedure ended at 17:34. Supervision of nurse monitored moderate sedation with Versed and Fentanyl was provided for 40 minutes. Total of Versed 2mg and Fentanyl 50mcg were administered by the University Intern RN Hubert Sanchez. Pre-op Diagnosis: STEMI Post-op Diagnosis: 1. Acute thrombotic subtotal occlusion of the mid RCA s/p successful PCI with aspiration thrombectomy and 3.5mm x 30mm [place] NELLA. Distal thrombus embolization to the distal RPDA. Will treat with Integrilin drip x 18 hours. 2. The mid LAD is heavily calcified and has diffuse disease with an 80-90% stenosis in the mid-distal LAD. The Ramus branch is a small caliber vessel with a 90% stenosis in the proximal portion. Will need staged revascularization to the LAD. Given Ramus is a small caliber branch, recommend medical management. 3. Left ventricular end-diastolic pressure of 22mmHg Procedure(s): 1. Moderate sedation 2. Ultrasound-guided access of the right radial artery 3. Coronary angiography 4. Left heart cath 5. PCI of the mid RCA with NELLA x 1 (3.5mm x 30mm [place] NELLA) 6. IVUS of RCA Access Site: Right radial artery Brief History and Clinical Indications: Patient is a 68 year old male who is referred for emergent [facility] for STEMI. Time out called, patient name, date of , medical record number, allergies, procedure performed, identify Hub Inventory Specialist, patient and staff member concurred with accurate data, procedure carried on. Findings: LEFT HEART CATHETERIZATION FINDINGS: 1. Left main: The left main coronary artery is widely patent without any significant obstructive disease. 2. Left anterior descending: Heavy calcifications seen in the proximal and mid LAD. The mid LAD is heavily calcified and has diffuse disease with an 80-90% stenosis in the mid-distal LAD. 3. Ramus: The Ramus branch is a small caliber vessel with a 90% stenosis in the proximal portion. 4. Left circumflex: The left circumflex artery and the main marginal branches have mild luminal irregularities without any significant obstructive angiographic disease. 5. Right coronary artery: The RCA is the dominant vessel. There is a subtotal occlusion in the mid RCA with large thrombus burden. 6. Left ventricle: A. End-diastolic pressure 22 mmHg. B. LV gram deferred. C. No significant gradient across aortic valve on catheter pullback. Description of Procedure and PCI: Patient transferred to animal laboratory helper room. Prepped and draped in usual sterile fashion. 2% lidocaine injected subcutaneously in right wrist area. 22-gauge venipuncture catheter used to access the right radial artery under ultrasound guidance. 6-FR slender sheath placed in right radial artery. Nitroglycerine and Verapamil were given intraarterial through the sheath. Versacore wire advanced under fluoroscopy 5F Tig 4 diagnostic catheter engaged Left Main Coronary Artery. 5F Tig 4 diagnostic catheter engaged Right Coronary Artery Multiple orthogonal angiogram obtained and reviewed. Angiomax used for anticoagulation. 6F FR 4 guide catheter was used to intubate the RCA. 0.014 [place] coronary wire was passed in to the distal RPDA. Aspiration thrombectomy performed with Pneumbra catheter. The lesion was pre-dilated with a 2.5 mm x 15 mm balloon inflated to high MAURICE. Multiple balloon inflations done. IVUS catheter advanced distal to the lesion and reference measurements obtained. A 3.5 mm x 30 mm [place] NELLA was successfully deployed into mid RCA. Intracoronary NTG was administered Coronary wire and guide-catheter were removed No angiographic complications identified. 5F Pigtail diagnostic catheter crossed aortic valve to obtain LVEDP, LV angiogram deferred. Hemostasis was achieved by application of TR band. Disposition: ICU Plan: DAPT for 1 year followed by ASA indefinitely. See H&P note for additional recommendations/plan. Continue aggressive medical therapy and risk factor modification. ? Landen Mercer M.D. Interventional Cardiology
--- NOTE | 2024-11-09 18:05 | ADMGEN ---
This patient, Ralf Petit, was admitted to Intensive Care Unit-6. Patient/family oriented to hospital policies and general routines including ID bracelet, bed and alarms, visiting hours, pain management, procedures, bathroom and other care routines, personal items, smoking policy, room service/diet, and visiting hours. Information on how to activate the Rapid Response Team has been discussed. Patient/Family are encouraged to report perceived risks to care and to ask questions if they do not understand what they are told or what they should do.
--- NOTE | 2024-11-09 18:37 | PC.NURSE ---
Per report from the refuse laborer, the loading dose of brilinta 180 mg and 324 aspirin were given through the og in refuse laborer.
[2024-11-09 18:59] LABS: Basophils Absolute Auto 0.1 K/mm3 (0.0-0.1); Basophils Percent Auto 0.4 % (0.2-1.2); Eosinophils Percent Auto 0.1 % (0-4.4); Hematocrit 41.4 % (42.0-52.0); Hemoglobin 14.1 g/dL (14.0-18.0); Immature Granulocyte Absolute 0.13 K/mm3 (0.00-0.031); Immature Granulocyte Percent A 0.8 % (0-0.5); Lymphocytes Absolute Auto 0.86 K/mm3 (0.9-3.2); Lymphocytes Percent Auto 5.2 % (18.3-44.2); Mean Corpuscular HGB Conc 34.1 g/dl (32-36); Mean Corpuscular Hemoglobin 33.4 pg (26-34); Mean Corpuscular Volume 98.1 fl (80-100); Mean Platelet Volume 9.1 fl (7.4-10.4); Monocytes Absolute Auto 1.2 K/mm3 (0.1-0.6); Monocytes Percent Auto 7.5 % (2.6-8.5); Neutrophils Absolute Auto 14.2 K/mm3 (1.3-6.7); Platelet Count Result 222 k/mm3 (150-375); Red Blood Count 4.22 M/mm3 (4.6-6.20); White Blood Count 16.5 K/mm3 (4.5-10.0)
[2024-11-09] MEDS: levETIRAcetam 1000MG/NACL100ML 1,000 MG/100 ML BAG 400 MG IVPB (19:00)
[2024-11-09 19:11] LABS: Alanine Aminotransferase 68 U/L (6-50); Albumin Level 3.8 g/dL (3.5-5.1); Alkaline Phosphatase 51 U/L (38-126); Anion Gap 13 mmol/L (4-12); Aspartate Amino Transferase 96 U/L (17-59); Bilirubin,Total 1.1 mg/dL (0.2-1.3); Blood Urea Nitrogen 15 mg/dL (9-20); Calcium 8.3 mg/dL (8.4-10.2); Carbon Dioxide 19 mmol/L (22-30); Chloride 104 mmol/L (98-107); Cholesterol 158 mg/dL (0-200); Creatine Kinase 633 U/L (55-170); Estimated Glomerular Filt Rate > 60; Glucose 144 mg/dL (65-110); HDL Direct 34 mg/dL; Lipase 194 U/L (23-300); Magnesium 2.1 mg/dL (1.6-2.3); Potassium 4.1 mmol/L (3.4-5.0); Sodium 136 mmol/L (137-145); Triglycerides 88 mg/dL (<150)
[2024-11-09 19:12] LABS: Lactic Acid Reflex 4.4 mmol/L (0.7-2.0)
[2024-11-09 19:14] LABS: Hemoglobin A1C 6.7 % (<5.7)
[2024-11-09 19:22] LABS: LDL Cholesterol Direct 107 mg/dL
[2024-11-09 19:29] LABS: Influenza A QL RT-PCR Negative (Negative); Influenza B QL RT-PCR Negative (Negative); RSV RNA, RT-PCR Negative (Negative); SARS-CoV-2 RNA PCR Negative (Negative)
[2024-11-09 19:35] LABS: Alveolar/Arterial O2 Gradient 484.5 mmHg; Arterial Blood Gas Vent Mode CMV; Arterial Blood Gas Ventilator rate 22 /MIN; Base Excess ABG -4.9 mEq/l (+/-2.0); Carboxyhemoglobin 0.4 % THb (0-2.0); Device VENTILATOR; Fractional Inspired Oxygen 100 %; HCO3 ABG 19.2 mEq/l (22.0-26.0); Modified Allen's Test Pass; Oxygen Saturation ABG 99.3 % (95.0-100.0); PCO2 ABG 33.4 mmHg (35.0-45.0); PO2 ABG 195.1 mmHg (80.0-100.0); PO2 FiO2 Ratio Arterial Blood 1.95 %; Reduced Hemoglobin 0.6 %THb (0-5.0); Site Drawn LEFT RADIAL; Total Hemoglobin 14.8 g/dL (12.0-18.0); pH ABG 7.378 (7.350-7.450)
--- NOTE | 2024-11-09 19:35 | P.CONIM_ITS ---
Assessment and Plan Assessment and plan (1) Cardiac arrest with successful resuscitation: Code(s): I46.9 - Cardiac arrest, cause unspecified Status: Acute Assessment and Plan: Patient went unresponsive at home and was pulseless on EMS arrival. ACLS protocol was initiated and on pulse check he was in pulseless ventricular fibrillation for which he was defibrillated. He received 2 doses of epinephrine and a total of 10 minutes of chest compressions with return of spontaneous circulation. Cardiac arrest secondary to acute STEMI. Cough, gag, and corneal reflexes are intact. * Targeted temperature management initiated. * Loaded with levetiracetam 1 g; continue 500 mg b.i.d.. * Assess neurologic function once rewarmed. * Accepted by Dr. Kumar at CVICU at [facility] though no beds are available at this time. (2) ST elevation myocardial infarction (STEMI): Code(s): I21.3 - ST elevation (STEMI) myocardial infarction of unspecified site Status: Acute Assessment and Plan: EKG showed ST-elevation consistent with inferolateral STEMI. * Status post aspiration thrombectomy and drug-eluting stent to the right coronary artery. * Distal thrombus ambulation to the distal RPDA for which he was started on Integrilin which has since been stopped due to the bleeding/DIC. * Will need staged intervention of the mid distal LAD. * Continue aggressive medical therapy (dap for 1 year) and risk factor modification. (3) Disseminated intravascular coagulation: Code(s): D65 - Disseminated intravascular coagulation [defibrination syndrome] Status: Acute Assessment and Plan: Significant bleeding on arrival to ICU with a PT of 73.4, INR 9.0, PTT >200. Integrilin drip was stopped and repeat coags and DIC panel showed an INR of 3.2, fibrinogen 197, and a D-dimer >20. * Patient received 10 mg IV vitamin K, 2 units FFP, and 1 unit of cryoprecipitate. * Bleeding has slowed tremendously, continue to monitor DIC panel. (4) Hyperglycemia: Code(s): R73.9 - Hyperglycemia, unspecified Status: Acute Assessment and Plan: Random glucose was 144. * Check hemoglobin A1c and fasting glucose. * Initiate sliding scale insulin, Accu-Cheks, and hypoglycemic protocol. Plan Thank you for allowing us to participate in this patient's care. Please do not hesitate to contact us with any questions. HPI Date of Consult Consult date: 11/10/24 Requesting Physician: Landen Mercer MD Primary Care Provider: Sukumar Rapp MD Consult Narrative Reason for consult: post cardiac arrest medical management Narrative: This is a 68-year-old male with hypertension, dyslipidemia, neuropathy, and erectile dysfunction whom the hospitalist service has been consulted for help managing his medical conditions post cardiac arrest due to inferolateral STEMI. His and daughters provide the following history. The patient was started on ezetimibe about 3 weeks ago and he did not seem to tolerate the drug very well as it caused him the gas with frequent belching and upset stomach. Last Morris he told his daughter that he thought he had a heart attack but was blaming it on the medication and the following day he felt better and he did not mention any further episodes of chest pain. His appetite has not been very good since starting the medication and this evening he only felt like eating toast for dinner. Not long prior to arrival he and his were sitting in the living room and she looked over and notice that he was breathing strangely and he was not responding to her. She called 911 and EMS arrived within a very short period of time. He was pulseless on their arrival and ACLS protocol was initiated. On 1st pulse check he was and pulseless ventricular fibrillation and was defibrillated x1. He received compressions for total of 10 minutes and 2 doses of epinephrine with return of spontaneous circulation. He was intubated in the field however EMS had difficulties bagging the patient and there was noted to be a piece of toast in the ET tube. The tube was removed, he was deep suctioned, and reintubated. On arrival to the emergency department EKG showed ST-elevation and he was taken to the laborer [facility] where he underwent aspiration thrombectomy of an acute thrombotic subtotal occlusion in the mid RCA with placement of a drug- eluting stent. Mid LAD was heavily calcified with diffuse disease and 80 to 90% stenosis in the mid distal LAD and was also 90% stenosis in the proximal portion of the ramus with plans for staged revascularization to the LAD. Distal thrombosis embolization was noted to the distal RPDA and he was started on Integrilin drip however he had significant bleeding from his mouth, nose, and previous venipuncture sites and after discussing with the rotary slicing machine operator this was discontinued. D-dimer was elevated and fibrinogen level was low and he was given 2 units of FFP and 1 unit of cryoprecipitate for DIC. He also received vitamin K 10 mg IV and his bleeding has ceased. Initial neurologic exam shortly after presentation to the ICU revealed intact corneal, gag, and cough reflex with bilateral ankle clonus and occasional tremors of the upper extremities. He became more alert and agitated and was started on fentanyl and Versed for sedation. He was given Keppra 1 g and targeted temperature management was initiated. Transfer was initiated to [facility] and he was accepted to CVICU per Dr. Kumar however no beds are available at this time. Recommends continued management as above. Review of Systems 2 Review of Systems: Unable to obtain given clinical condition. [facility] Past Medical History Medical History (Updated 11/10/24 @ 07:03 by Linda Owens PA-C) Kidney stones Hyperlipidemia Peripheral polyneuropathy Hypertension Surgical History Surgical History (Updated 11/10/24 @ 07:02 by Linda Owens PA-C) History of cystoscopy Family History Family History Mother Hypertension Father Cancer of kidney Lung cancer Tobacco abuse Sibling Lung cancer Tobacco abuse Social History Social History (Updated 11/10/24 @ 07:04 by Linda Owens PA-C) Social History: Surrogate medical decision maker: Rut Petit, spouse. Code status: Full code. Smoking packs per day: 2 Smoking cigarettes per day: 40.0 Years smoked: 30 Smoking pack-years: 60.00 Smoking status: Former smoker Tobacco type: cigarettes Second hand tobacco smoke exposure: No Smoking end date: 08/12/05 Alcohol intake: current Drinks per week: 30 Substance use: never Substance use type: does not use Do You Feel Safe in your Home?: Yes Lack of Transportation: No Lack of Food: Never True Current Housing: I Have Housing Concerned About Future Housing: No Difficulty Paying Gas/Electric Bills: No Difficulty Paying for Meds: No Currently Unemployed: No Education: Trade/Vocational Certificate Difficulty w/ Childcare or Family Care: No Living arrangements: with family Additional living arrangements comments: Lives with spouse in [place]. They have 2 daughters. Occupation/Education: retired Additional occupation/education comments: [employer]. Spiritual care concerns: No Meds Home Medications and Allergies Home Medications ?Medication ?Instructions ?Recorded ?Confirmed ?Type nebivolol 10 mg tablet (Bystolic) 10 mg PO DAILY #90 tabs 03/30/24 11/10/24 Rx gabapentin 300 mg capsule 300 mg PO BID #180 caps 04/05/24 11/10/24 Rx omeprazole 20 mg capsule,delayed 20 mg PO DAILY #90 caps 04/05/24 11/10/24 Rx release sildenafil 25 mg tablet 25 mg PO DAILY PRN sexual activity 04/05/24 11/10/24 Rx #10 tabs Allergies Allergy/AdvReac Type Severity Reaction Status Date / Time Penicillins Allergy Unknown Unknown Verified 11/09/24 16:35 ezetimibe (From Zetia) AdvReac Mild Gastrointestinal Verified 11/09/24 16:35 Upset [id number] Reductase AdvReac Mild Muscle Pain Verified 11/09/24 16:35 Inhibitor Vital Signs Vital Signs - 24 hr 11/09/24 16:13 11/09/24 16:13 11/09/24 16:15 Temperature Pulse Rate 88 85 Respiratory Rate 18 Blood Pressure 114/85 Pulse Oximetry 93 Oxygen Delivery Mechanical Ventilation Bag Valve Mask Fraction of Inspired Oxygen 11/09/24 16:47 11/09/24 18:05 11/09/24 18:06 Temperature 98.0 F Pulse Rate 98 85 88 Respiratory Rate 20 Blood Pressure 126/92 H Pulse Oximetry 94 100 100 Oxygen Delivery Mechanical Ventilation Mechanical Ventilation Fraction of Inspired Oxygen 100 100 11/09/24 18:15 11/09/24 18:46 Temperature Pulse Rate 85 Respiratory Rate Blood Pressure Pulse Oximetry 100 Oxygen Delivery Mechanical Ventilation Fraction of Inspired Oxygen 100 100 Exam 2 Narrative: General: Acutely ill-appearing male sedated on mechanical ventilation. HEENT: Pupils are reactive. Sclera anicteric. Conjunctiva mildly injected. Patient has blood from the nares and mouth on initial evaluation. ET tube in place. Neck: Supple. Respiratory: Intubated on mechanical ventilation. Lung sounds clear anteriorly and at the flanks. Cardiovascular: Regular rate and rhythm with S1-S2. Gastrointestinal: Abdomen is soft, nontender, and nondistended with positive bowel sounds. Skin: Warm and dry. No rash or lesions on limited exam. Extremities: No cyanosis, clubbing, or edema. Radial and pedal pulses intact. Neurological: Cough, gag, and corneal reflex intact. Mild ankle clonus. At times he attempts to move hands towards ET tube. Psychiatric: Unable to assess. Results Labs 11/10/24 04:31 11/10/24 04:31 Labs: Short CBC 11/09/24 Range/Units 18:25 WBC 16.5 H (4.5-10.0) K/mm3 Hgb 14.1 (14.0-18.0) g/dL Hct 41.4 L (42.0-52.0) % Plt Count 222 (150-375) k/mm3 BMP 11/09/24 18:25 Sodium 136 L Potassium 4.1 Chloride 104 Carbon Dioxide 19 L BUN 15 Creatinine 1.19 Glucose 144 H Calcium 8.3 L Cardiac Enzymes 11/09/24 Range/Units 18:25 Total Creatine Kinase 633 H (55-170) U/L Troponin I 9.090 H* (0.000-0.034) ng/mL Liver Function 11/09/24 Range/Units 18:25 Total Bilirubin 1.1 (0.2-1.3) mg/dL AST 96 H (17-59) U/L ALT 68 H (6-50) U/L Alkaline Phosphatase 51 (38-126) U/L Albumin 3.8 (3.5-5.1) g/dL Impressions Chest X-Ray 11/09/24 16:31 Impression: 1: No acute cardiopulmonary disease. Abdomen X-Ray 11/09/24 19:07 IMPRESSION: Orogastric tube in good position and ready for immediate use. Endotracheal tube tip projects approximately 5 cm above the base of the booker for which advancement of approximately 2 cm is suggested for optimal radiographic placement. The lungs are clear. Chest X-Ray 11/09/24 19:07 IMPRESSION: Orogastric tube in good position and ready for immediate use. Endotracheal tube tip projects approximately 5 cm above the base of the booker for which advancement of approximately 2 cm is suggested for optimal radiographic placement. The lungs are clear. Head CT 11/09/24 20:38 Impression: Global intracranial parenchymal edema without acute intracranial hemorrhage or suspicious mass effect, as detailed above. Short-term follow-up is recommended. ADDENDUM: 11/09/24 2103 Increased attenuation within the venous sinuses as well as a visualized intracranial vascular structures initially suggesting increased intravascular density rather than acute intracranial hemorrhage. Given patient's history of recent cardiac catheterization (within the last 1-2 hours) this likely represents intravenous contrast. Chest/Abdomen/Pelvis CT 11/09/24 20:53 IMPRESSION: Acute fracture involving the anterolateral margin of the right sixth rib, likely from patient's CPR. No additional acute findings within the chest, abdomen or pelvis, as detailed above. Chest X-Ray 11/10/24 06:16 Impression: 1: Mild pulmonary vascular congestion. Hospitalist MIPS Advance Care Plan I have confirmed that the patient's Advanced Care Plan is present, code status is documented, or surrogate decision maker is listed in patient medical record.: Yes Medication Reconciliation I have utilized all available resources to obtain, update and review the patients current medications (includes all prescriptions, OTC, herbals, cannabis, and nutritional supplements).: Yes Critical Care Time Critical Care Time: Yes Total Critical Care Time: 60 Attestation: Due to a high probability of clinically significant, life threatening deterioration, the patient required my highest level of preparedness to intervene emergently and I personally spent this critical care time directly and personally managing the patient. This critical care time included obtaining a history; examining the patient; pulse oximetry; ordering and review of studies; arranging urgent treatment with development of a management plan; evaluation of patient's response to treatment; frequent reassessment; and discussions with other providers. It was exclusive of separately billable procedures and treating other patients and teaching time. Please see Assessment and Plan section and the rest of the note for further information on patient assessment and treatment.
[2024-11-09 19:36] LABS: Arterial Blood Gas PEEP 8 cmH2O; Arterial Blood Gas Tidal Volume 480 ml
[2024-11-09 19:38] LABS: Prothrombin Time 73.4 Seconds (11.1-14.7)
[2024-11-09 19:52] LABS: Partial Thromboplastin Time > 200.0 Seconds (22.3-36.8)
[2024-11-09 19:56] LABS: Hemoglobin 12.9 g/dL (14.0-18.0); Mean Corpuscular HGB Conc 34.9 g/dl (32-36); Mean Corpuscular Hemoglobin 33.9 pg (26-34); Mean Corpuscular Volume 97.1 fl (80-100); Mean Platelet Volume 9.3 fl (7.4-10.4); Platelet Count Result 131 k/mm3 (150-375); Red Blood Count 3.81 M/mm3 (4.6-6.20); Red Cell Distribution Width 12.1 % (11.5-14.5)
[2024-11-09 20:04] LABS: Magnesium 1.6 mg/dL (1.6-2.3)
[2024-11-09 20:05] LABS: MRSA (PCR) NOT DETECTED (NOT DETECTE)
[2024-11-09 20:12] LABS: Fibrinogen 197 mg/dl (215-510)
[2024-11-09 20:13] LABS: INR 3.2; Prothrombin Time 32.6 Seconds (11.1-14.7)
[2024-11-09 20:30] LABS: D Dimer > 20.00 ug/mL (<0.48)
[2024-11-09 20:54] LABS: Hematocrit 36.9 % (42.0-52.0); Hemoglobin 12.8 g/dL (14.0-18.0); Mean Corpuscular HGB Conc 34.7 g/dl (32-36); Mean Corpuscular Hemoglobin 33.7 pg (26-34); Mean Corpuscular Volume 97.1 fl (80-100); Mean Platelet Volume 9.6 fl (7.4-10.4); Platelet Count Result 140 k/mm3 (150-375); Red Cell Distribution Width 12.1 % (11.5-14.5); White Blood Count 15.6 K/mm3 (4.5-10.0)
[2024-11-09 20:56] LABS: Reflex Lactic Acid Yes or No Add Lactic
[2024-11-09] MEDS: PHYTONADIONE ADULT INJ 10 MG in DEXTROSE 5% IN WATER 50 ML 100 MG IVPB (20:56)
[2024-11-09] MEDS: LACTATED RINGERS 1,000 ML 999 ML IV CONT (21:00)
[2024-11-09] MEDS: MIDAZOLAM HCL (*CRX) 2 MG/2 ML VIAL IV PUSH (21:29)
[2024-11-09 21:41] LABS: Lactic Acid 3.8 mmol/L (0.7-2.0)
[2024-11-09] MEDS: FENTANYL 2,500MCG/NS250ML(*CRX 2,500 MCG/250 ML BAG 15 MCG IV CONT (22:46)
[2024-11-09] MEDS: MIDAZOLAM 100MG/NS 100ML(*CRX) 100 MG/100 ML BAG IV CONT (22:46)
[2024-11-09 22:51] LABS: Amphetamine Screen Urine Negative (Negative); Barbiturate Screen Urine Negative (Negative); Benzodiazepines Screen Urine Positive (Negative); Cannabinoid Screen Urine Negative (Negative); Cocaine Screen Urine Negative (Negative); Methadone Screen Urine Negative (Negative); Opiate Screen Urine Negative (Negative); Phencyclidine Screen Urine Negative (Negative)
[2024-11-09 22:55] LABS: Glucose Point of Care 169 mg/dl (65-105)
[2024-11-09] MEDS: MINERAL OIL/WHITE PETROLATUM OINTMENT 1 APPLIC EACH EYE (22:57)
[2024-11-09 23:19] LABS: INR 1.8; Partial Thromboplastin Time 60.5 Seconds (22.3-36.8); Prothrombin Time 21.6 Seconds (11.1-14.7)
[2024-11-09 23:37] LABS: MRSA (PCR) NOT DETECTED (NOT DETECTE)
--- NOTE | 2024-11-09 23:48 | P.PCNBED_ITS ---
Procedures Central Line Placement Right Femoral: Central Line Date: 11/09/24 Central Line Time: 23:30 Consent: I have discussed with the patient and/or surrogate, the non-emergent placement of a central venous catheter, including its clinical necessity/indication and associated potential risks and complications. The patient and/or surrogate understand(s) and acknowledge(s) the need to proceed with central venous catheter insertion as an important element of the patient's clinical management. Time Out Performed: Yes Patient Position: supine Patient placed on monitor/pulse ox: Yes Provider Prep: mask, sterile gown, sterile gloves, Max. sterile barrier precautions, cap and hand hygiene with conventional soap/water or alcohol based hand rub Central line prep: 2% Chlorhexidine scrub Local anesthesia used: lidocaine 1% Amount of anesthesia used (ml): 3 Sterile US Technique with sterile gel/sterile probe covers: Yes Central line lumen inserted: triple Citizen [place]: 7 Length (cm): 20 Post Procedure: sutured in place, good blood return, all ports aspirated, flushed, capped, transparent dressing, securement product and aseptic technique maintained throughout procedure Post procedure x-ray: other (n/a with femoral placement) Complications: none
[2024-11-10] VITALS (86 sets, daily range): BP systolic 88–124; BP diastolic 66–83; PULSE 66–143; RESP 15–80; TEMP 35.5–38.3; O2SAT 86–100
--- NOTE | 2024-11-10 | ECHO_ITS ---
Patient Info Name: Ralf Petit Age: 68 years : 1955 Gender: Male Ht: 74 in Wt: 216 lbs BSA: 2.28 m2 HR: 75 bpm BP: 104 / 72 mmHg Heart Rhythm: Sinus Rhythm Technical Quality: Fair Exam Date: 11/10/2024 9:44 AM Exam Location: Echo Lab Patient Status: Inpatient Admit Date: 11/09/2024 Staff Ordering Physician: Landen Mercer MD (saad/meagan) Pillar Man: Mera Goldstein RDCS Attending Provider: Landen Mercer MD (saad/meagan) Referring Physician: Ruslan SAMUEL; Exam Type: CA echo dop color flow w con Study Info Indications - STEMI Complete two-dimensional, color flow and Doppler transthoracic echocardiogram is performed with contrast to opacify the left ventricle and to improve the deliniation of the left ventricle endocardial borders. Summary 1. Technically difficult study with limited views, even with Definity. 2. Left ventricular chamber dimension is normal. 3. There is mildly increased left ventricular wall thickness. 4. Left ventricular systolic function is moderately reduced, estimated at 35-40%. 5. The inferior wall appears to be hypokinetic. 6. The left ventricular diastolic function is grade I diastolic dysfunction. 7. Right ventricular systolic function is normal. 8. No significant valvular disease appreciated, however, technically difficult study. Left Ventricle Left ventricular chamber dimension is normal. There is mildly increased left ventricular wall thickness. Left ventricular systolic function is moderately reduced, estimated at 35-40%. The inferior wall appears to be hypokinetic. The left ventricular diastolic function is grade I diastolic dysfunction. Right Ventricle Right ventricular chamber dimension is normal. Right ventricular systolic function is normal. Left Atria Left atrial chamber dimension is normal. Right Atria Right atrial chamber dimension is normal. Aortic Valve The aortic valve is not well visualized. There is no aortic valve regurgitation. Pulmonic Valve The pulmonic valve is not well visualized. There is no pulmonic regurgitation. Mitral Valve There is trace mitral valve regurgitation. Tricuspid Valve There is trace tricuspid valve regurgitation. Pericardium/Pleural There is no pericardial effusion. Inferior Vena Cava Inferior vena cava is not well visualized. Aorta The aortic root size at the sinus of Valsalva is normal. Left Ventricular Outflow Tract Name Value Normal LVOT 2D LVOT Diameter 2.43 cm LVOT Doppler LVOT Peak Gradient 2 mmHg LVOT Mean Gradient 1 mmHg LVOT VTI 16.72 cm LVOT VTI/AV VTI Ratio 1.13 LVOT Stroke Volume 77.70 ml LVOT CO 6.16 l/min LVOT CI 2.71 L/min/m2 Pulmonic Valve Name Value Normal RVOT Doppler RVOT Peak Gradient 2 mmHg PV Doppler PV Peak Gradient 5 mmHg Mitral Valve Name Value Normal MV Doppler MV Decel [place] 159.89 cm/s2 MV PHT 0 s MV Area (PHT) 2.60 cm2 4.00-5.00 MV Diastolic Function MV E Peak Velocity 46.64 cm/s MV A Peak Velocity 71.75 cm/s MV E/A 0.65 MV Decel Time 0 s MV Annular TDI MV E/e' (Septal) 9.33 <=8.00 MV E/e' (Lateral) 11.26 <=8.00 MV E/e' (Average) 10.29 Tricuspid Valve Name Value Normal TV Regurgitation Doppler TR Peak Velocity 227.73 cm/s TR Peak Gradient 21 mmHg Aortic Valve Name Value Normal AV Doppler AV Peak Velocity 83.05 cm/s AV Peak Gradient 3 mmHg AV Mean Gradient 2 mmHg AV VTI 14.75 cm AV Area (Cont Eq VTI) 5.27 cm2 >=3.00 AV Area (Cont Eq Adam) 4.35 cm2 AV Regurgitation 2D LVOT Area 4.65 cm2 Ventricles Name Value Normal LV Dimensions 2D/MM IVS Diastolic Thickness (2D) 1.23 cm 0.60-1.00 LVID Diastole (2D) 5.42 cm 4.20-5.80 LVIW Diastolic Thickness (2D) 0.85 cm 0.60-1.00 LVID Systole (2D) 3.25 cm 2.50-4.00 LVOT Diameter 2.43 cm LV Mass (2D Cubed) 219.14 g 88.00-224.00 LV Mass Index (2D Cubed) 0.01 g/cm2 0.00-0.01 Relative Wall Thickness (2D) 0.31 LV Fractional Shortening/Ejection Fraction 2D/MM LV Fractional Shortening (2D) 34 % 25-43 LV EF (2D Teicholz) 62 % 52-72 LV Diastolic Volume (4C MOD) 99.92 ml LV EF (4C MOD) 52 % LV Diastolic Volume (2C MOD) 102.76 ml LV EF (2C MOD) 47 % LV Diastolic Volume (BP MOD) 101.84 ml 62.00-150.00 LV Diastolic Volume Index (BP MOD) 0.04 l/m2 0.03-0.07 LV Systolic Volume (BP MOD) 51.58 ml 21.00-61.00 LV Systolic Volume Index (BP MOD) 0.02 l/m2 0.01-0.03 LV EF (BP MOD) 49 % 52-72 LV Diastolic Length (4C) 8.73 cm LV Systolic Length (4C) 7.94 cm LV Stroke Volume (4C MOD) 51.98 ml Atria Name Value Normal LA Dimensions LA Volume (4C A-L) 43.99 ml LA Volume (BP A-L) 49.42 ml RA Dimensions RA Area (4C) 14.33 cm2 <=18.00 Report Signatures
[2024-11-10 00:28] LABS: Lactic Acid Reflex 4.1 mmol/L (0.7-2.0)
[2024-11-10 01:06] LABS: Glucose Point of Care 163 mg/dl (65-105)
[2024-11-10 02:00] LABS: Glucose Point of Care 150 mg/dl (65-105)
[2024-11-10 03:04] LABS: Glucose Point of Care 151 mg/dl (65-105)
[2024-11-10 04:13] LABS: Glucose Point of Care 154 mg/dl (65-105)
[2024-11-10 04:40] LABS: Basophils Percent Auto 0.2 % (0.2-1.2); Hematocrit 33.8 % (42.0-52.0); Hemoglobin 11.5 g/dL (14.0-18.0); Immature Granulocyte Absolute 0.07 K/mm3 (0.00-0.031); Immature Granulocyte Percent A 0.6 % (0-0.5); Lymphocytes Absolute Auto 0.57 K/mm3 (0.9-3.2); Lymphocytes Percent Auto 4.6 % (18.3-44.2); Mean Corpuscular Volume 97.1 fl (80-100); Mean Platelet Volume 9.1 fl (7.4-10.4); Monocytes Absolute Auto 0.7 K/mm3 (0.1-0.6); Monocytes Percent Auto 5.8 % (2.6-8.5); Neutrophils Absolute Auto 11.1 K/mm3 (1.3-6.7); Neutrophils Percent Auto 88.8 % (45.5-73.1); Platelet Count Result 185 k/mm3 (150-375); Red Blood Count 3.48 M/mm3 (4.6-6.20); Red Cell Distribution Width 12.3 % (11.5-14.5); White Blood Count 12.5 K/mm3 (4.5-10.0)
[2024-11-10 04:46] LABS: Creatine Kinase 830 U/L (55-170); Lactic Acid Reflex 2.7 mmol/L (0.7-2.0)
[2024-11-10 04:48] LABS: Alanine Aminotransferase 58 U/L (6-50); Albumin Level 3.7 g/dL (3.5-5.1); Alkaline Phosphatase 45 U/L (38-126); Anion Gap 9 mmol/L (4-12); Aspartate Amino Transferase 109 U/L (17-59); Bilirubin,Total 1.1 mg/dL (0.2-1.3); Blood Urea Nitrogen 17 mg/dL (9-20); Calcium 8.2 mg/dL (8.4-10.2); Carbon Dioxide 24 mmol/L (22-30); Chloride 105 mmol/L (98-107); Estimated CRCL calculation 65 ml/min; Estimated Glomerular Filt Rate > 60; Glucose 159 mg/dL (65-110); Magnesium 1.8 mg/dL (1.6-2.3); Potassium 4.4 mmol/L (3.4-5.0); Sodium 138 mmol/L (137-145)
[2024-11-10 04:56] LABS: INR 1.3; Prothrombin Time 16.2 Seconds (11.1-14.7)
--- NOTE | 2024-11-10 05:10 | PC.NURSE ---
Second bag of cryo initiated at 0510. Unable to scan in second bag as Maddi from blood bank states Two bags makes one unit. This RN completed prior bag as it appears in the TAR that another bag of 101 mL of cryo was ordered to be administered. Vitals at initiation of second bag of cryo are as follows: Temp: 98.7 HR: 76 RR: 22 SpO2: 95 BP: 102/71 Time out taken and correct patient identified with correct V number, blood type, unit number, & expiration date. Will continue to monitor and chart vitals as appropriate while remainder of unit transfuses.
[2024-11-10 05:15] LABS: Glucose Point of Care 140 mg/dl (65-105)
--- NOTE | 2024-11-10 05:25 | PC.NURSE ---
15 minute vitals for second unit of cryo are as follows: Temp: 98.6 HR: 76 RR: 22 SpO2: 96 BP: 101/71 No transfusion reactions noted at this time.
[2024-11-10 06:11] LABS: Glucose Point of Care 133 mg/dl (65-105)
--- NOTE | 2024-11-10 06:15 | PC.NURSE ---
Second unit of Cryo transfused at 0615. Vital signs are as follows: Temp: 98.8 HR 77 RR 26 SpO2: 95 BP: 104/72 No signs of transfusion reaction noted at completion of transfusion. Will continue to monitor.
--- NOTE | 2024-11-10 06:50 | PCRCNOTE ---
0545 ABG unattained after several attempts.
[2024-11-10] MEDS: CENTRAL LINE FLUSH 10 ML IV PUSH ×3 (07:00→20:46)
[2024-11-10 08:11] LABS: Glucose Point of Care 124 mg/dl (65-105)
[2024-11-10 08:31] LABS: Alveolar/Arterial O2 Gradient 215.6 mmHg; Fractional Inspired Oxygen 45 %; HCO3 ABG 22.8 mEq/l (22.0-26.0); Oxygen Content ABG 15.6 %vol (16.0-22.0); Oxygen Saturation ABG 93.7 % (95.0-100.0); Oxyhemoglobin 92.3 % THb (90.0-100.0); PCO2 ABG 34.9 mmHg (35.0-45.0); PO2 ABG 65.6 mmHg (80.0-100.0); PO2 FiO2 Ratio Arterial Blood 1.46 %; pH ABG 7.433 (7.350-7.450)
[2024-11-10 08:32] LABS: Arterial Blood Gas PEEP 8 cmH2O; Arterial Blood Gas Tidal Volume 480 ml; Arterial Blood Gas Vent Mode CMV; Arterial Blood Gas Ventilator rate 22 /MIN; Device VENTILATOR; Modified Allen's Test Pass; Site Drawn LEFT RADIAL
--- NOTE | 2024-11-10 08:47 | PC.NURSE ---
Spoke to [facility] at 0847 per telephone call. NO bed available at this time. Patient remains on wait list. Update on patient status, labs, and vitals signs communicated with [place] transfer team. RN to continue care and wait for update on bed availability.
[2024-11-10 09:00] LABS: Glucose Point of Care 128 mg/dl (65-105)
[2024-11-10] MEDS: ASPIRIN 81 MG ENTERIC TABLET PO (09:21)
[2024-11-10] MEDS: levETIRAcetam 500MG/NACL 100ML 500 MG/100 ML BAG 400 MG IVPB ×2 (09:21→20:55)
[2024-11-10] MEDS: ATORVASTATIN 40 MG TABLET 80 MG PO (09:21)
[2024-11-10] MEDS: TICAGRELOR 90 MG TABLET PO ×2 (09:21→20:46)
[2024-11-10] MEDS: MINERAL OIL/WHITE PETROLATUM OINTMENT 1 APPLIC EACH EYE ×3 (09:21→20:55)
[2024-11-10 10:13] LABS: Glucose Point of Care 118 mg/dl (65-105)
--- NOTE | 2024-11-10 10:47 | PM.PNCARD ---
Progress Note: A&P Assessment and Plan (1) ST elevation myocardial infarction (STEMI): Code(s): I21.3 - ST elevation (STEMI) myocardial infarction of unspecified site Status: Acute Plan 1. Inferolateral STEMI 2. Cardiac arrest, presumably VFIB 3. Possible atrial fibrillation. Initial EKG showed STEMI with possible AFIB, repeat EKG after PCI shows sinus rhythm. 4. Hypertension 5. Acute respiratory failure, requiring mechanical ventilation. 6. DIC PLAN: -ASA 81mg once daily indefinitely. -Brilinta 90mg BID for at least 1 year. -High intensity statin. -Echocardiogram pending. -On hypothermia protocol. -Will need staged revascularization to LAD. -Awaiting transfer to [place] for higher level of care. Recommendations and plan discussed with ICU Physician. Subjective Date/time seen: 11/10/24 10:47 Interval history: Reason for visit: STEMI, cardiac arrest HPI: Ralf is a 68 year old male with hypertension, neuropathy, erectile dysfunction who presented to [place] with cardiac arrest, STEMI. Patient intubated therefore unable to obtain any history from the patient. History obtained from chart and medical team. Apparently he had been having chest pain over past week. May have been choking on some food -- piece of bread was removed during the intubation process. At some point, he went into cardiac arrest (uncertain what the initial arresting rhythm was). Had some VF during the arrest, for which he was defibrillated once. Chest compressions for about 10 minutes. EMS EKG shows inferolateral STEMI. EKG in the ED confirms inferolateral STEMI. Cath team activated. Date of service 11/10: Integrilin drip stopped shortly after being admitted to ICU as patient bleeding from multiple orifices. Remains on cooling protocol. Awaiting transfer to [place] for higher level of care. Review of Systems Review of Systems: ROS unobtainable: Yes unobtainable due to endotracheal tube and unobtainable due to medical condition Exam Const: Other: Critically ill male, intubated. HENMT: Other: OETT in place Resp: Other: On mechanical ventilation Cardio: Rate: regular rate Rhythm: regular rhythm Heart sounds: no murmurs Neuro: Other: Sedated Objective Data Vital Signs Vital Signs: Vital Signs - 24 hr 11/09/24 16:13 11/09/24 16:13 11/09/24 16:15 Temperature Pulse Rate 88 85 Pulse Rate [Bilateral Pedal (Dorsalis Pedis) Palpation] Pulse Rate [Left Radial Palpation] Pulse Rate [Right Radial Palpation] Respiratory Rate 18 Blood Pressure 114/85 Pulse Oximetry 93 Oxygen Delivery Mechanical Ventilation Bag Valve Mask Fraction of Inspired Oxygen 11/09/24 16:47 11/09/24 18:05 11/09/24 18:06 Temperature 36.7 C Pulse Rate 98 85 88 Pulse Rate [Bilateral Pedal (Dorsalis Pedis) Palpation] Pulse Rate [Left Radial Palpation] Pulse Rate [Right Radial Palpation] Respiratory Rate 20 Blood Pressure 126/92 H Pulse Oximetry 94 100 100 Oxygen Delivery Mechanical Ventilation Mechanical Ventilation Fraction of Inspired Oxygen 100 100 11/09/24 18:15 11/09/24 18:15 11/09/24 18:30 Temperature Pulse Rate 85 87 Pulse Rate [Bilateral Pedal (Dorsalis Pedis) Palpation] Pulse Rate [Left Radial Palpation] Pulse Rate [Right Radial Palpation] Respiratory Rate Blood Pressure Pulse Oximetry 100 100 Oxygen Delivery Mechanical Ventilation Mechanical Ventilation Fraction of Inspired Oxygen 100 100 11/09/24 18:46 11/09/24 19:14 11/09/24 19:37 Temperature Pulse Rate 96 101 H Pulse Rate [Bilateral Pedal (Dorsalis Pedis) Palpation] Pulse Rate [Left Radial Palpation] Pulse Rate [Right Radial Palpation] Respiratory Rate 22 H Blood Pressure 116/91 H Pulse Oximetry 100 100 Oxygen Delivery Mechanical Ventilation Fraction of Inspired Oxygen 100 100 11/09/24 19:45 11/09/24 20:00 11/09/24 20:00 Temperature Pulse Rate 100 102 H Pulse Rate [Bilateral Pedal (Dorsalis Pedis) Palpation] Pulse Rate [Left Radial Palpation] Pulse Rate [Right Radial Palpation] Respiratory Rate 22 H 22 H Blood Pressure 131/93 H 116/96 H Pulse Oximetry 100 97 Oxygen Delivery Fraction of Inspired Oxygen 50 11/09/24 20:00 11/09/24 20:30 11/09/24 20:35 Temperature Pulse Rate 102 H 102 H 100 Pulse Rate [Bilateral Pedal (Dorsalis Pedis) Palpation] Pulse Rate [Left Radial Palpation] Pulse Rate [Right Radial Palpation] Respiratory Rate 22 H 22 H Blood Pressure 127/93 H Pulse Oximetry 96 100 Oxygen Delivery Mechanical Ventilation Fraction of Inspired Oxygen 50 11/09/24 20:44 11/09/24 21:00 11/09/24 21:00 Temperature Pulse Rate 102 H 98 100 Pulse Rate [Bilateral Pedal (Dorsalis Pedis) Palpation] Pulse Rate [Left Radial Palpation] Pulse Rate [Right Radial Palpation] Respiratory Rate 20 24 H 23 H Blood Pressure 116/96 H 120/85 120/85 Pulse Oximetry 97 96 92 Oxygen Delivery Fraction of Inspired Oxygen 11/09/24 21:30 11/09/24 21:34 11/09/24 22:00 Temperature 37.2 C Pulse Rate 100 97 96 Pulse Rate [Bilateral Pedal (Dorsalis Pedis) Palpation] Pulse Rate [Left Radial Palpation] Pulse Rate [Right Radial Palpation] Respiratory Rate 24 H 30 H 25 H Blood Pressure 140/89 140/89 130/81 Pulse Oximetry 97 93 91 Oxygen Delivery Fraction of Inspired Oxygen 11/09/24 22:00 11/09/24 22:30 11/09/24 22:46 Temperature Pulse Rate 97 90 115 H Pulse Rate [Bilateral Pedal (Dorsalis Pedis) Palpation] Pulse Rate [Left Radial Palpation] Pulse Rate [Right Radial Palpation] Respiratory Rate 22 H 31 H Blood Pressure 120/80 Pulse Oximetry 94 Oxygen Delivery Fraction of Inspired Oxygen 11/09/24 22:46 11/09/24 23:03 11/09/24 23:20 Temperature Pulse Rate 121 H 104 H 89 Pulse Rate [Bilateral Pedal (Dorsalis Pedis) Palpation] Pulse Rate [Left Radial Palpation] Pulse Rate [Right Radial Palpation] Respiratory Rate 31 H 22 H Blood Pressure Pulse Oximetry 99 Oxygen Delivery Mechanical Ventilation Fraction of Inspired Oxygen 50 11/09/24 23:21 11/10/24 00:00 11/10/24 00:00 Temperature Pulse Rate 87 83 83 Pulse Rate [Bilateral Pedal (Dorsalis Pedis) Palpation] Pulse Rate [Left Radial Palpation] Pulse Rate [Right Radial Palpation] Respiratory Rate 22 H 22 H 22 H Blood Pressure Pulse Oximetry Oxygen Delivery Fraction of Inspired Oxygen 11/10/24 00:00 11/10/24 00:00 11/10/24 00:00 Temperature Pulse Rate 86 85 Pulse Rate [Bilateral Pedal (Dorsalis Pedis) Palpation] Pulse Rate [Left Radial Palpation] Pulse Rate [Right Radial Palpation] Respiratory Rate 22 H Blood Pressure 94/73 L Pulse Oximetry 93 Oxygen Delivery Fraction of Inspired Oxygen 50 11/10/24 00:16 11/10/24 00:30 11/10/24 00:31 Temperature 37.3 C 36.9 C Pulse Rate 85 86 82 Pulse Rate [Bilateral Pedal (Dorsalis Pedis) Palpation] Pulse Rate [Left Radial Palpation] Pulse Rate [Right Radial Palpation] Respiratory Rate 22 H 22 H 22 H Blood Pressure 94/73 L 102/77 102/77 Pulse Oximetry 92 92 95 Oxygen Delivery Fraction of Inspired Oxygen 11/10/24 00:45 11/10/24 01:00 11/10/24 01:00 Temperature 36.9 C 36.3 C L Pulse Rate 83 83 83 Pulse Rate [Bilateral Pedal (Dorsalis Pedis) Palpation] Pulse Rate [Left Radial Palpation] Pulse Rate [Right Radial Palpation] Respiratory Rate 22 H 22 H 22 H Blood Pressure 105/80 92/72 L Pulse Oximetry 96 95 95 Oxygen Delivery Mechanical Ventilation Fraction of Inspired Oxygen 50 11/10/24 01:31 11/10/24 02:00 11/10/24 02:00 Temperature 37.5 C 37.4 C Pulse Rate 80 83 83 Pulse Rate [Bilateral Pedal (Dorsalis Pedis) Palpation] Pulse Rate [Left Radial Palpation] Pulse Rate [Right Radial Palpation] Respiratory Rate 22 H 22 H Blood Pressure 99/83 L 105/77 Pulse Oximetry 97 97 Oxygen Delivery Fraction of Inspired Oxygen 11/10/24 02:00 11/10/24 02:00 11/10/24 02:00 Temperature 37.4 C Pulse Rate 77 77 78 Pulse Rate [Bilateral Pedal (Dorsalis Pedis) Palpation] Pulse Rate [Left Radial Palpation] Pulse Rate [Right Radial Palpation] Respiratory Rate 22 H 22 H 20 Blood Pressure 105/77 Pulse Oximetry 96 Oxygen Delivery Fraction of Inspired Oxygen 11/10/24 02:05 11/10/24 02:15 11/10/24 02:25 Temperature 37.3 C Pulse Rate 80 78 78 Pulse Rate [Bilateral Pedal (Dorsalis Pedis) Palpation] Pulse Rate [Left Radial Palpation] Pulse Rate [Right Radial Palpation] Respiratory Rate 22 H 22 H Blood Pressure 109/82 109/82 Pulse Oximetry 98 96 96 Oxygen Delivery Mechanical Ventilation Fraction of Inspired Oxygen 50 11/10/24 02:30 11/10/24 02:57 11/10/24 03:00 Temperature 37.3 C 37.2 C Pulse Rate 77 77 77 Pulse Rate [Bilateral Pedal (Dorsalis Pedis) Palpation] Pulse Rate [Left Radial Palpation] Pulse Rate [Right Radial Palpation] Respiratory Rate 22 H 22 H 22 H Blood Pressure 110/75 102/74 107/74 Pulse Oximetry 96 97 95 Oxygen Delivery Fraction of Inspired Oxygen 11/10/24 03:00 11/10/24 03:00 11/10/24 03:15 Temperature 37.2 C 37.2 C Pulse Rate 76 76 75 Pulse Rate [Bilateral Pedal (Dorsalis Pedis) Palpation] 76 Pulse Rate [Left Radial Palpation] 76 Pulse Rate [Right Radial Palpation] 76 Respiratory Rate 22 H 22 H 22 H Blood Pressure 107/74 107/74 94/77 L Pulse Oximetry 96 96 96 Oxygen Delivery Fraction of Inspired Oxygen 11/10/24 03:30 11/10/24 04:00 11/10/24 04:00 Temperature 37.2 C 37.2 C Pulse Rate 75 77 74 Pulse Rate [Bilateral Pedal (Dorsalis Pedis) Palpation] 75 Pulse Rate [Left Radial Palpation] 75 Pulse Rate [Right Radial Palpation] 75 Respiratory Rate 22 H 22 H 22 H Blood Pressure 99/75 L 100/72 100/72 Pulse Oximetry 96 97 97 Oxygen Delivery Fraction of Inspired Oxygen 11/10/24 04:00 11/10/24 04:00 11/10/24 04:00 Temperature Pulse Rate 77 78 Pulse Rate [Bilateral Pedal (Dorsalis Pedis) Palpation] Pulse Rate [Left Radial Palpation] Pulse Rate [Right Radial Palpation] Respiratory Rate 22 H 22 H Blood Pressure Pulse Oximetry Oxygen Delivery Fraction of Inspired Oxygen 45 11/10/24 04:00 11/10/24 04:10 11/10/24 04:15 Temperature 37.2 C Pulse Rate 75 77 75 Pulse Rate [Bilateral Pedal (Dorsalis Pedis) Palpation] Pulse Rate [Left Radial Palpation] Pulse Rate [Right Radial Palpation] Respiratory Rate 22 H 22 H Blood Pressure 108/77 Pulse Oximetry 97 97 Oxygen Delivery Mechanical Ventilation Fraction of Inspired Oxygen 45 11/10/24 04:30 11/10/24 04:39 11/10/24 04:49 Temperature 37.1 C Pulse Rate 77 75 77 Pulse Rate [Bilateral Pedal (Dorsalis Pedis) Palpation] 77 Pulse Rate [Left Radial Palpation] 77 Pulse Rate [Right Radial Palpation] 77 Respiratory Rate 22 H 22 H 22 H Blood Pressure 107/74 107/74 Pulse Oximetry 96 96 Oxygen Delivery Fraction of Inspired Oxygen 11/10/24 04:55 11/10/24 05:00 11/10/24 05:05 Temperature 37.1 C 37.0 C Pulse Rate 77 76 75 Pulse Rate [Bilateral Pedal (Dorsalis Pedis) Palpation] Pulse Rate [Left Radial Palpation] Pulse Rate [Right Radial Palpation] Respiratory Rate 16 22 H Blood Pressure 108/79 101/71 Pulse Oximetry 96 96 95 Oxygen Delivery Mechanical Ventilation Fraction of Inspired Oxygen 45 11/10/24 05:06 11/10/24 05:30 11/10/24 06:00 Temperature 37.0 C 37.0 C Pulse Rate 77 76 Pulse Rate [Bilateral Pedal (Dorsalis Pedis) Palpation] 77 Pulse Rate [Left Radial Palpation] 77 Pulse Rate [Right Radial Palpation] 77 Respiratory Rate 22 H 22 H Blood Pressure 101/71 97/71 L Pulse Oximetry 96 96 Oxygen Delivery Fraction of Inspired Oxygen 11/10/24 06:00 11/10/24 06:00 11/10/24 06:16 Temperature Pulse Rate 77 75 Pulse Rate [Bilateral Pedal (Dorsalis Pedis) Palpation] 77 Pulse Rate [Left Radial Palpation] 77 Pulse Rate [Right Radial Palpation] 77 Respiratory Rate 22 H Blood Pressure 97/71 L Pulse Oximetry 95 Oxygen Delivery Fraction of Inspired Oxygen 11/10/24 06:24 11/10/24 07:00 11/10/24 08:00 Temperature 37.2 C 37.1 C 37.3 C Pulse Rate 75 77 76 Pulse Rate [Bilateral Pedal (Dorsalis Pedis) Palpation] Pulse Rate [Left Radial Palpation] Pulse Rate [Right Radial Palpation] Respiratory Rate 22 H 22 H 22 H Blood Pressure 104/72 105/73 104/73 Pulse Oximetry 95 95 96 Oxygen Delivery Fraction of Inspired Oxygen 11/10/24 08:00 11/10/24 08:00 11/10/24 08:00 Temperature 37.3 C Pulse Rate Pulse Rate [Bilateral Pedal (Dorsalis Pedis) Palpation] Pulse Rate [Left Radial Palpation] Pulse Rate [Right Radial Palpation] Respiratory Rate Blood Pressure Pulse Oximetry 96 Oxygen Delivery Mechanical Ventilation Fraction of Inspired Oxygen 45 45 11/10/24 08:00 11/10/24 08:00 11/10/24 08:00 Temperature Pulse Rate 78 76 76 Pulse Rate [Bilateral Pedal (Dorsalis Pedis) Palpation] Pulse Rate [Left Radial Palpation] Pulse Rate [Right Radial Palpation] Respiratory Rate 22 H 22 H Blood Pressure Pulse Oximetry Oxygen Delivery Fraction of Inspired Oxygen 11/10/24 08:16 11/10/24 09:00 11/10/24 09:00 Temperature 36.4 C L 37.6 C Pulse Rate 76 77 77 Pulse Rate [Bilateral Pedal (Dorsalis Pedis) Palpation] Pulse Rate [Left Radial Palpation] Pulse Rate [Right Radial Palpation] Respiratory Rate 22 H 22 H Blood Pressure 103/68 103/68 Pulse Oximetry 96 95 95 Oxygen Delivery Mechanical Ventilation Fraction of Inspired Oxygen 45 11/10/24 10:00 Temperature 37.7 C H Pulse Rate 79 Pulse Rate [Bilateral Pedal (Dorsalis Pedis) Palpation] Pulse Rate [Left Radial Palpation] Pulse Rate [Right Radial Palpation] Respiratory Rate 20 Blood Pressure 105/71 Pulse Oximetry 95 Oxygen Delivery Fraction of Inspired Oxygen Intake/Output Intake/Output: Intake & Output 11/07/24 11/08/24 11/09/24 11/10/24 23:59 23:59 23:59 23:59 Intake Total 110.2 756.6 Output Total 1115 Balance 110.2 -358.4 Meds/Results Medications: Active Medications Generic Name Dose Route Start Last Admin Trade Name Freq PRN Reason Stop Dose Admin Aspirin 81 mg 11/10/24 09:00 11/10/24 09:21 Aspirin 81 Mg Enteric Tablet PO 81 mg QAM SAMY Administration Atorvastatin Calcium 80 mg 11/09/24 17:45 11/10/24 09:21 Atorvastatin 40 Mg Tablet PO 80 mg DAILY SAMY Administration Levetiracetam 500 mg in 100 mls @ 400 mls/hr 11/10/24 09:00 11/10/24 09:21 Keppra Iv IVPB 400 mls/hr Q12HR SAMY Administration Fentanyl Citrate 2,500 mcg in 250 mls @ 10 mls/hr 11/09/24 22:35 11/10/24 08:00 Fentanyl 2,500 Mcg/Ns 250 Ml IV CONT 100 mcg/hr .Q25H SAMY 10 mls/hr Titration Protocol 100 MCG/HR Midazolam HCl 100 mg in 100 mls @ 2 mls/hr 11/09/24 22:35 11/10/24 08:00 Versed 100 Mg/Ns 100 Ml IV CONT 2 mg/hr .Q50H SAMY 2 mls/hr Titration Protocol 2 MG/HR Multi-Ingred Cream/Lotion/Oil/Oint 1 applic 11/09/24 21:00 11/10/24 09:21 Mineral Oil/White Petrolatum Ointment EACH EYE 1 applic Q12HR SAMY Administration Multi-Ingred Cream/Lotion/Oil/Oint 1 applic 11/10/24 09:00 11/10/24 09:22 Mineral Oil/White Petrolatum Ointment EACH EYE 1 applic Q12HR SAMY Administration Pantoprazole Sodium 40 mg 11/10/24 21:00 Pantoprazole Sodium Iv 40 Mg Vial IV PUSH Q12HR SAMY Perflutren Lipid Microsphere 0 ml 11/09/24 17:43 Perflutren Lipid Microspheres 1.5 Ml Vial Diluted To 10 Ml Total Volume IV PUSH 11/12/24 17:43 ONCE PRN adequate visualization Protocol Sodium Chloride 10 ml 11/10/24 06:00 11/10/24 07:00 Central Line Flush IV PUSH 10 ml Q8HR SAMY Administration Sodium Chloride 20 ml 11/10/24 03:49 Central Line Flush IV PUSH PRN PRN after blood draws Ticagrelor 90 mg 11/09/24 21:00 11/10/24 09:21 Ticagrelor 90 Mg Tablet PO 90 mg Q12HR SAMY Administration Radiology Results: ITS Impressions Abdomen X-Ray 11/09/24 19:07 IMPRESSION: Orogastric tube in good position and ready for immediate use. Endotracheal tube tip projects approximately 5 cm above the base of the booker for which advancement of approximately 2 cm is suggested for optimal radiographic placement. The lungs are clear. Head CT 11/09/24 20:38 Impression: Global intracranial parenchymal edema without acute intracranial hemorrhage or suspicious mass effect, as detailed above. Short-term follow-up is recommended. ADDENDUM: 11/09/24 2103 Increased attenuation within the venous sinuses as well as a visualized intracranial vascular structures initially suggesting increased intravascular density rather than acute intracranial hemorrhage. Given patient's history of recent cardiac catheterization (within the last 1-2 hours) this likely represents intravenous contrast. Chest/Abdomen/Pelvis CT 11/09/24 20:53 IMPRESSION: Acute fracture involving the anterolateral margin of the right sixth rib, likely from patient's CPR. No additional acute findings within the chest, abdomen or pelvis, as detailed above. Chest X-Ray 11/10/24 06:16 Impression: 1: Mild pulmonary vascular congestion. Labs Labs: Laboratory Results - last 24 hr 11/09/24 11/09/24 11/09/24 18:25 18:48 19:23 WBC 16.5 H RBC 4.22 L Hgb 14.1 Hct 41.4 L MCV 98.1 MCH 33.4 MCHC 34.1 RDW 12.0 Plt Count 222 MPV 9.1 Immature Gran % (Auto) 0.8 H Neut % (Auto) 86.0 H Lymph % (Auto) 5.2 L [place] % (Auto) 7.5 Eos % (Auto) 0.1 Baso % (Auto) 0.4 Lymph # (Auto) 0.86 L [place] # (Auto) 1.2 H Eos # (Auto) 0.0 Baso # (Auto) 0.1 Abs Immat Gran (auto) 0.13 H Absolute Neuts (auto) 14.2 H Absolute Nucleated RBC 0.000 Nucleated RBC % 0.0 PT 73.4 H INR 9.0 H* APTT > 200.0 H* Fibrinogen D-Dimer Puncture Site Left radial ABG pH 7.378 ABG pCO2 33.4 L ABG pO2 195.1 H ABG PO2/FiO2 Ratio 1.95 ABG HCO3 19.2 L ABG O2 Saturation 99.3 ABG O2 Content 21.0 ABG Base Excess -4.9 A-a Gradient 484.5 Oxyhemoglobin 99.0 Carboxyhemoglobin 0.4 Methemoglobin 0.0 Reduced Hemoglobin 0.6 Total Hemoglobin 14.8 O2 Delivery Device Ventilator O2 Liters/Min Not Reportable Minute Volume Not Reportable Vent Rate 22 Vent Mode Cmv FiO2 100 Tidal Volume 480 PEEP 8 Peak Inspir Pressure Not Reportable Pressure Support Not Reportable Sodium 136 L Potassium 4.1 Chloride 104 Carbon Dioxide 19 L Anion Gap 13 H BUN 15 Creatinine 1.19 Estim Creat Clear Calc Not Reportable Estimated GFR > 60 Glucose 144 H POC Capillary Glucose Hemoglobin A1c 6.7 H Lactic Acid 4.4 H* Calcium 8.3 L Phosphorus Magnesium 2.1 Total Bilirubin 1.1 AST 96 H ALT 68 H Alkaline Phosphatase 51 Total Creatine Kinase 633 H Troponin I 9.090 H* Total Protein 7.0 Albumin 3.8 Triglycerides 88 Cholesterol 158 LDL Cholesterol Direct 107 HDL Direct 34 Lipase 194 TSH 1.800 Nasal MRSA (PCR) Not detected Urine Opiates Screen Urine Methadone Screen Ur Barbiturates Screen Ur Phencyclidine Scrn Ur Amphetamine Screen U Benzodiazepines Scrn Urine Cocaine Screen U Cannabinoids Screen Influenza A (RT-PCR) Negative Influenza B (RT-PCR) Negative RSV (RT-PCR) Negative SARS-CoV-2 RNA (RT-PCR) Negative Blood Type 11/09/24 11/09/24 11/09/24 19:51 20:44 21:18 WBC 14.0 H 15.6 H RBC 3.81 L 3.80 L Hgb 12.9 L 12.8 L Hct 37.0 L 36.9 L MCV 97.1 97.1 MCH 33.9 33.7 MCHC 34.9 34.7 RDW 12.1 12.1 Plt Count 131 L 140 L MPV 9.3 9.6 Immature Gran % (Auto) Neut % (Auto) Lymph % (Auto) [place] % (Auto) Eos % (Auto) Baso % (Auto) Lymph # (Auto) [place] # (Auto) Eos # (Auto) Baso # (Auto) Abs Immat Gran (auto) Absolute Neuts (auto) Absolute Nucleated RBC Nucleated RBC % PT 32.6 H D INR 3.2 APTT 37.0 H Fibrinogen 197 L D-Dimer > 20.00 H Puncture Site ABG pH ABG pCO2 ABG pO2 ABG PO2/FiO2 Ratio ABG HCO3 ABG O2 Saturation ABG O2 Content ABG Base Excess A-a Gradient Oxyhemoglobin Carboxyhemoglobin Methemoglobin Reduced Hemoglobin Total Hemoglobin O2 Delivery Device O2 Liters/Min Minute Volume Vent Rate Vent Mode FiO2 Tidal Volume PEEP Peak Inspir Pressure Pressure Support Sodium Potassium Chloride Carbon Dioxide Anion Gap BUN Creatinine Estim Creat Clear Calc Estimated GFR Glucose POC Capillary Glucose Hemoglobin A1c Lactic Acid 3.8 H Calcium Phosphorus Magnesium 1.6 Total Bilirubin AST ALT Alkaline Phosphatase Total Creatine Kinase Troponin I Total Protein Albumin Triglycerides Cholesterol LDL Cholesterol Direct HDL Direct Lipase TSH Nasal MRSA (PCR) Urine Opiates Screen Urine Methadone Screen Ur Barbiturates Screen Ur Phencyclidine Scrn Ur Amphetamine Screen U Benzodiazepines Scrn Urine Cocaine Screen U Cannabinoids Screen Influenza A (RT-PCR) Influenza B (RT-PCR) RSV (RT-PCR) SARS-CoV-2 RNA (RT-PCR) Blood Type 11/09/24 11/09/24 11/09/24 22:14 22:15 22:18 WBC RBC Hgb Hct MCV MCH MCHC RDW Plt Count MPV Immature Gran % (Auto) Neut % (Auto) Lymph % (Auto) [place] % (Auto) Eos % (Auto) Baso % (Auto) Lymph # (Auto) [place] # (Auto) Eos # (Auto) Baso # (Auto) Abs Immat Gran (auto) Absolute Neuts (auto) Absolute Nucleated RBC Nucleated RBC % PT 21.6 H D INR 1.8 APTT 60.5 H Fibrinogen D-Dimer Puncture Site ABG pH ABG pCO2 ABG pO2 ABG PO2/FiO2 Ratio ABG HCO3 ABG O2 Saturation ABG O2 Content ABG Base Excess A-a Gradient Oxyhemoglobin Carboxyhemoglobin Methemoglobin Reduced Hemoglobin Total Hemoglobin O2 Delivery Device O2 Liters/Min Minute Volume Vent Rate Vent Mode FiO2 Tidal Volume PEEP Peak Inspir Pressure Pressure Support Sodium Potassium Chloride Carbon Dioxide Anion Gap BUN Creatinine Estim Creat Clear Calc Estimated GFR Glucose POC Capillary Glucose Hemoglobin A1c Lactic Acid Calcium Phosphorus Magnesium Total Bilirubin AST ALT Alkaline Phosphatase Total Creatine Kinase Troponin I Total Protein Albumin Triglycerides Cholesterol LDL Cholesterol Direct HDL Direct Lipase TSH Nasal MRSA (PCR) Not detected Urine Opiates Screen Negative Urine Methadone Screen Negative Ur Barbiturates Screen Negative Ur Phencyclidine Scrn Negative Ur Amphetamine Screen Negative U Benzodiazepines Scrn Positive A Urine Cocaine Screen Negative U Cannabinoids Screen Negative Influenza A (RT-PCR) Influenza B (RT-PCR) RSV (RT-PCR) SARS-CoV-2 RNA (RT-PCR) Blood Type A Negative 11/09/24 11/10/24 11/10/24 22:53 00:08 01:04 WBC RBC Hgb Hct MCV MCH MCHC RDW Plt Count MPV Immature Gran % (Auto) Neut % (Auto) Lymph % (Auto) [place] % (Auto) Eos % (Auto) Baso % (Auto) Lymph # (Auto) [place] # (Auto) Eos # (Auto) Baso # (Auto) Abs Immat Gran (auto) Absolute Neuts (auto) Absolute Nucleated RBC Nucleated RBC % PT INR APTT Fibrinogen D-Dimer Puncture Site ABG pH ABG pCO2 ABG pO2 ABG PO2/FiO2 Ratio ABG HCO3 ABG O2 Saturation ABG O2 Content ABG Base Excess A-a Gradient Oxyhemoglobin Carboxyhemoglobin Methemoglobin Reduced Hemoglobin Total Hemoglobin O2 Delivery Device O2 Liters/Min Minute Volume Vent Rate Vent Mode FiO2 Tidal Volume PEEP Peak Inspir Pressure Pressure Support Sodium Potassium Chloride Carbon Dioxide Anion Gap BUN Creatinine Estim Creat Clear Calc Estimated GFR Glucose POC Capillary Glucose 169 H 163 H Hemoglobin A1c Lactic Acid 4.1 H* Calcium Phosphorus Magnesium Total Bilirubin AST ALT Alkaline Phosphatase Total Creatine Kinase Troponin I Total Protein Albumin Triglycerides Cholesterol LDL Cholesterol Direct HDL Direct Lipase TSH Nasal MRSA (PCR) Urine Opiates Screen Urine Methadone Screen Ur Barbiturates Screen Ur Phencyclidine Scrn Ur Amphetamine Screen U Benzodiazepines Scrn Urine Cocaine Screen U Cannabinoids Screen Influenza A (RT-PCR) Influenza B (RT-PCR) RSV (RT-PCR) SARS-CoV-2 RNA (RT-PCR) Blood Type 11/10/24 11/10/24 11/10/24 01:56 02:59 04:09 WBC RBC Hgb Hct MCV MCH MCHC RDW Plt Count MPV Immature Gran % (Auto) Neut % (Auto) Lymph % (Auto) [place] % (Auto) Eos % (Auto) Baso % (Auto) Lymph # (Auto) [place] # (Auto) Eos # (Auto) Baso # (Auto) Abs Immat Gran (auto) Absolute Neuts (auto) Absolute Nucleated RBC Nucleated RBC % PT INR APTT Fibrinogen D-Dimer Puncture Site ABG pH ABG pCO2 ABG pO2 ABG PO2/FiO2 Ratio ABG HCO3 ABG O2 Saturation ABG O2 Content ABG Base Excess A-a Gradient Oxyhemoglobin Carboxyhemoglobin Methemoglobin Reduced Hemoglobin Total Hemoglobin O2 Delivery Device O2 Liters/Min Minute Volume Vent Rate Vent Mode FiO2 Tidal Volume PEEP Peak Inspir Pressure Pressure Support Sodium Potassium Chloride Carbon Dioxide Anion Gap BUN Creatinine Estim Creat Clear Calc Estimated GFR Glucose POC Capillary Glucose 150 H 151 H 154 H Hemoglobin A1c Lactic Acid Calcium Phosphorus Magnesium Total Bilirubin AST ALT Alkaline Phosphatase Total Creatine Kinase Troponin I Total Protein Albumin Triglycerides Cholesterol LDL Cholesterol Direct HDL Direct Lipase TSH Nasal MRSA (PCR) Urine Opiates Screen Urine Methadone Screen Ur Barbiturates Screen Ur Phencyclidine Scrn Ur Amphetamine Screen U Benzodiazepines Scrn Urine Cocaine Screen U Cannabinoids Screen Influenza A (RT-PCR) Influenza B (RT-PCR) RSV (RT-PCR) SARS-CoV-2 RNA (RT-PCR) Blood Type 11/10/24 11/10/24 11/10/24 04:31 05:09 06:06 WBC 12.5 H RBC 3.48 L Hgb 11.5 L Hct 33.8 L MCV 97.1 MCH 33.0 MCHC 34.0 RDW 12.3 Plt Count 185 MPV 9.1 Immature Gran % (Auto) 0.6 H Neut % (Auto) 88.8 H Lymph % (Auto) 4.6 L [place] % (Auto) 5.8 Eos % (Auto) 0.0 Baso % (Auto) 0.2 Lymph # (Auto) 0.57 L [place] # (Auto) 0.7 H Eos # (Auto) 0.0 Baso # (Auto) 0.0 Abs Immat Gran (auto) 0.07 H Absolute Neuts (auto) 11.1 H Absolute Nucleated RBC 0.000 Nucleated RBC % 0.0 PT 16.2 H D INR 1.3 APTT 32.0 Fibrinogen D-Dimer Puncture Site ABG pH ABG pCO2 ABG pO2 ABG PO2/FiO2 Ratio ABG HCO3 ABG O2 Saturation ABG O2 Content ABG Base Excess A-a Gradient Oxyhemoglobin Carboxyhemoglobin Methemoglobin Reduced Hemoglobin Total Hemoglobin O2 Delivery Device O2 Liters/Min Minute Volume Vent Rate Vent Mode FiO2 Tidal Volume PEEP Peak Inspir Pressure Pressure Support Sodium 138 Potassium 4.4 Chloride 105 Carbon Dioxide 24 Anion Gap 9 BUN 17 Creatinine 1.15 Estim Creat Clear Calc 65 Estimated GFR > 60 Glucose 159 H POC Capillary Glucose 140 H 133 H Hemoglobin A1c Lactic Acid 2.7 H Calcium 8.2 L Phosphorus 4.0 Magnesium 1.8 Total Bilirubin 1.1 AST 109 H ALT 58 H Alkaline Phosphatase 45 Total Creatine Kinase 830 H Troponin I Total Protein 7.0 Albumin 3.7 Triglycerides Cholesterol LDL Cholesterol Direct HDL Direct Lipase TSH Nasal MRSA (PCR) Urine Opiates Screen Urine Methadone Screen Ur Barbiturates Screen Ur Phencyclidine Scrn Ur Amphetamine Screen U Benzodiazepines Scrn Urine Cocaine Screen U Cannabinoids Screen Influenza A (RT-PCR) Influenza B (RT-PCR) RSV (RT-PCR) SARS-CoV-2 RNA (RT-PCR) Blood Type 11/10/24 11/10/24 11/10/24 07:56 08:28 08:58 WBC RBC Hgb Hct MCV MCH MCHC RDW Plt Count MPV Immature Gran % (Auto) Neut % (Auto) Lymph % (Auto) [place] % (Auto) Eos % (Auto) Baso % (Auto) Lymph # (Auto) [place] # (Auto) Eos # (Auto) Baso # (Auto) Abs Immat Gran (auto) Absolute Neuts (auto) Absolute Nucleated RBC Nucleated RBC % PT INR APTT Fibrinogen D-Dimer Puncture Site Left radial ABG pH 7.433 ABG pCO2 34.9 L ABG pO2 65.6 L ABG PO2/FiO2 Ratio 1.46 ABG HCO3 22.8 ABG O2 Saturation 93.7 L ABG O2 Content 15.6 L ABG Base Excess -1.0 A-a Gradient 215.6 Oxyhemoglobin 92.3 Carboxyhemoglobin Methemoglobin Reduced Hemoglobin Total Hemoglobin 12.0 O2 Delivery Device Ventilator O2 Liters/Min Not Reportable Minute Volume Not Reportable Vent Rate 22 Vent Mode Cmv FiO2 45 Tidal Volume 480 PEEP 8 Peak Inspir Pressure Not Reportable Pressure Support Not Reportable Sodium Potassium Chloride Carbon Dioxide Anion Gap BUN Creatinine Estim Creat Clear Calc Estimated GFR Glucose POC Capillary Glucose 124 H 128 H Hemoglobin A1c Lactic Acid Calcium Phosphorus Magnesium Total Bilirubin AST ALT Alkaline Phosphatase Total Creatine Kinase Troponin I Total Protein Albumin Triglycerides Cholesterol LDL Cholesterol Direct HDL Direct Lipase TSH Nasal MRSA (PCR) Urine Opiates Screen Urine Methadone Screen Ur Barbiturates Screen Ur Phencyclidine Scrn Ur Amphetamine Screen U Benzodiazepines Scrn Urine Cocaine Screen U Cannabinoids Screen Influenza A (RT-PCR) Influenza B (RT-PCR) RSV (RT-PCR) SARS-CoV-2 RNA (RT-PCR) Blood Type 11/10/24 10:09 WBC RBC Hgb Hct MCV MCH MCHC RDW Plt Count MPV Immature Gran % (Auto) Neut % (Auto) Lymph % (Auto) [place] % (Auto) Eos % (Auto) Baso % (Auto) Lymph # (Auto) [place] # (Auto) Eos # (Auto) Baso # (Auto) Abs Immat Gran (auto) Absolute Neuts (auto) Absolute Nucleated RBC Nucleated RBC % PT INR APTT Fibrinogen D-Dimer Puncture Site ABG pH ABG pCO2 ABG pO2 ABG PO2/FiO2 Ratio ABG HCO3 ABG O2 Saturation ABG O2 Content ABG Base Excess A-a Gradient Oxyhemoglobin Carboxyhemoglobin Methemoglobin Reduced Hemoglobin Total Hemoglobin O2 Delivery Device O2 Liters/Min Minute Volume Vent Rate Vent Mode FiO2 Tidal Volume PEEP Peak Inspir Pressure Pressure Support Sodium Potassium Chloride Carbon Dioxide Anion Gap BUN Creatinine Estim Creat Clear Calc Estimated GFR Glucose POC Capillary Glucose 118 H Hemoglobin A1c Lactic Acid Calcium Phosphorus Magnesium Total Bilirubin AST ALT Alkaline Phosphatase Total Creatine Kinase Troponin I Total Protein Albumin Triglycerides Cholesterol LDL Cholesterol Direct HDL Direct Lipase TSH Nasal MRSA (PCR) Urine Opiates Screen Urine Methadone Screen Ur Barbiturates Screen Ur Phencyclidine Scrn Ur Amphetamine Screen U Benzodiazepines Scrn Urine Cocaine Screen U Cannabinoids Screen Influenza A (RT-PCR) Influenza B (RT-PCR) RSV (RT-PCR) SARS-CoV-2 RNA (RT-PCR) Blood Type
[2024-11-10 11:04] LABS: Glucose Point of Care 106 mg/dl (65-105)
--- NOTE | 2024-11-10 11:04 | P.CONIN_ITS ---
Assessment and Plan Assessment and plan (1) Cardiac arrest with successful resuscitation: Code(s): I46.9 - Cardiac arrest, cause unspecified Status: Acute Assessment and Plan: Cardiac arrest most likely related to ST-elevation SC -patient had agonal breathing, EMS was called, upon arrival of the EMS patient was pulseless, CPR was started, defibrillated x1, ROSC was achieved in approximately 10 minutes -patient was intubated in the field but was unable to be bagged, ETT was removed and was found to have a piece of toast in the ETT, he was deeply suction and upon arrival to the ER he was re-intubated. -currently on target temperature management protocol at 36?C, since patient was in VFib arrest. -patient was cooled at just after 12:00 a.m. on 11/10/2024. Will follow the protocol, maintained cooling for 24 hours and will be removed passively after that. -once rewarming is complete, will discontinue sedation medications and allow him to wake up and evaluate neurological status. 11/09: CT scan of the brain showed increased attenuation within the venous sinuses as well as a visualized intracranial vascular structure initially suggesting increased intravascular density rather than acute intracranial hemorrhage. Given patient's history of recent cardiac catheterization (within the last 1-2 hours) this likely represents intravenous contrast. Global intracranial parenchyma him edema was noted, - Transfer was initiated to [place] and he was accepted to CVICU per Dr. Kumar however no beds are available at this time. Recommends continued management as above. (2) ST elevation (STEMI) myocardial infarction: Code(s): I21.3 - ST elevation (STEMI) myocardial infarction of unspecified site Status: Acute Assessment and Plan: Patient presented with VFib arrest, EKG showed ST-elevation SC, patient was taken to the quality control lab tech with PTCA/PCI to mid RCA with NELLA x1 -post cardiac catheterization he was started on Integrilin infusion but patient was in DIC, ICU team discussed with fountain server was okay to stop the Integrilin infusion. -continue aspirin, ticagrelor, atorvastatin -cardiology following the patient (3) Acute respiratory failure: Code(s): J96.00 - Acute respiratory failure, unspecified whether with hypoxia or hypercapnia Status: Acute Assessment and Plan: Acute respiratory failure likely related to cardiac arrest -currently on cooling protocol -11/09: Intubated -currently on CMV mode of ventilation, peep of 8, 45% FiO2 -will start bronchodilator -sedated with fentanyl and Versed infusion, maintain RASS of 0 to -2, once patient is remarkable start SBT and SAT (4) Disseminated intravascular coagulation: Code(s): D65 - Disseminated intravascular coagulation [defibrination syndrome] Status: Acute Assessment and Plan: Status cardiac arrest, cardiac catheterization, Integrilin infusion, patient was in DIC, was given 2 units of FFP the, vitamin K, 1 unit of cryoprecipitate (for INR of 9.0, PTT of 73.4, APTT was> 200, fibrinogen level was 197 and D-dimer> 20.0 -this morning coags look much improved, INR of 1.3, PTT 32.0 (5) Hypertension: Qualifiers: Hypertension type: unspecified Qualified Code(s): I10 - Essential (primary) hypertension Code(s): I10 - Essential (primary) hypertension Status: Acute Assessment and Plan: Patient history of hypertension, currently intubated in positive-pressure ventilation and sedation medications blood pressures have been stable, not requiring any pressors at this time -will hold home of all home anti hypertensive medication (6) Hyperlipidemia: Qualifiers: Hyperlipidemia type: unspecified Qualified Code(s): E78.5 - Hyperlipidemia, unspecified Code(s): E78.5 - Hyperlipidemia, unspecified Status: Acute Assessment and Plan: Continue atorvastatin Plan DVT prophylaxis: SCDs Stress ulcer prophylaxis: Proton Nutrition: NPO Code Status: Full code Critical Care Time Spent: 55 minutes Discuss with daughter and updated her with patient's condition and plan of care. I did explain to us complete process of target temperature management. She is aware that patient is on the transfer list to [facility] for global cerebral edema. I answered all her questions Due to a high probability of clinically significant, life threatening deterioration, the patient required my highest level of preparedness to intervene emergently and I personally spent this critical care time directly and personally managing the patient. This critical care time included obtaining a history; examining the patient; pulse oximetry; ordering and review of studies; arranging urgent treatment with development of a management plan; evaluation of patient's response to treatment; frequent reassessment; and discussions with other providers. It was exclusive of separately billable procedures and treating other patients and teaching time. Please see Assessment and Plan section and the rest of the note for further information on patient assessment and treatment This dictation may have been done utilizing a voice recognition system. Attempts have been made to correct errors. However, there may be uncorrected grammatical, spelling, and recognitions errors present. Automotive Sales Professional Consult Note Consult date: 11/10/24 Reason for consult: Cardiac arrest, acute respiratory failure, ST-elevation SC HPI: Ralf Petit is a 68 year old male past medical history of hypertension, hyperlipidemia, peripheral neuropathy, history of kidney stones, erectile dysfunction presented the ED on 11/09/2024 after he was found unresponsive with agonal breathing, prior to that he was complaining of gas and chest pain for a week and thyroid was reflux disease. EMS was called, patient did not have a pulse and CPR was initiated, ROSC approximately 10 minutes, 2 rounds of epi, defibrillation x1 for ventricular fibrillation. EMS inserted ETT but had difficulty bagging so was tube was removed and they noted a piece of toast in the ET tube. EKG in the ER showed ST-elevation has taken the quality control lab tech underwent aspiration thrombectomy of an acute thrombotic subtotal occlusion in the mid RCA and placement of a NELLA x1. Mid LAD was heavily calcified with diffuse disease and 80-90% stenosis at the mid distal LAD and 90% stenosis in the proximal portion of the ramus plans for staged revascularization at a later date. Distal thrombosis embolization was noted to the distal RPDA and he was started on Integrilin drip however he had significant bleeding from his mouth, nose, and previous venipuncture sites and after discussing with the fountain server this was discontinued. On arrival to the ICU post cardiac cath, patient was started on target temperature management. Labs were ordered and showed that the patient may be in DIC, for which she was given 2 units of FFP, 1 unit of cryoprecipitate, vitamin K with improvement in his bleeding. Central line was inserted in the right groin. Patient was noted to have posturing, tremors and nystagmus for which he was started on Keppra. CT scan of the brain showed increased attenuation within the venous sinuses as well as a visualized intracranial vascular structure initially suggesting increased intravascular density rather than acute intracranial hemorrhage. Given patient's history of recent cardiac catheterization (within the last 1-2 hours) this likely represents intravenous contrast. Global intracranial parenchyma him edema was noted, Transfer was initiated to [place] and he was accepted to CVICU per Dr. Kumar however no beds are available at this time. Recommends continued management as above. 11/10/2024: Patient seen and examined the ICU, remains intubated on CMV mode, peep of 8, 45% FiO2. Sedated with fentanyl and Versed infusion, patient does open his eyes, intermittently wiggled his toes but was not consistent, did not squeeze my fingers. Pupils equal and reactive. Patient is on target temperature management protocol this time. Not requiring any vasopressors Review of Systems 2 Review of Systems: ROS unobtainable: Yes unobtainable due to endotracheal tube, unobtainable due to medical condition and unobtainable due to mental status PMFSH Past Medical History Medical History (Updated 11/10/24 @ 11:21 by Kenneth Rodriguez MD) Kidney stones Hyperlipidemia Peripheral polyneuropathy Hypertension Surgical History Surgical History (Updated 11/10/24 @ 07:02 by Lnida Owens PA-C) History of cystoscopy Family History Family History Mother Hypertension Father Cancer of kidney Lung cancer Tobacco abuse Sibling Lung cancer Tobacco abuse Social History Social History (Updated 11/10/24 @ 07:04 by Linda Owens PA-C) Social History: Surrogate medical decision maker: Rut Marisabel, spouse. Code status: Full code. Smoking packs per day: 2 Smoking cigarettes per day: 40.0 Years smoked: 30 Smoking pack-years: 60.00 Smoking status: Former smoker Tobacco type: cigarettes Second hand tobacco smoke exposure: No Smoking end date: 08/12/05 Alcohol intake: current Drinks per week: 30 Substance use: never Substance use type: does not use Do You Feel Safe in your Home?: Yes Lack of Transportation: No Lack of Food: Never True Current Housing: I Have Housing Concerned About Future Housing: No Difficulty Paying Gas/Electric Bills: No Difficulty Paying for Meds: No Currently Unemployed: No Education: Trade/Vocational Certificate Difficulty w/ Childcare or Family Care: No Living arrangements: with family Additional living arrangements comments: Lives with spouse in [place]. They have 2 daughters. Occupation/Education: retired Additional occupation/education comments: [employer]. Spiritual care concerns: No Meds Home Medications and Allergies Home Medications ?Medication ?Instructions ?Recorded ?Confirmed ?Type nebivolol 10 mg tablet (Bystolic) 10 mg PO DAILY #90 tabs 03/30/24 11/10/24 Rx gabapentin 300 mg capsule 300 mg PO BID #180 caps 04/05/24 11/10/24 Rx omeprazole 20 mg capsule,delayed 20 mg PO DAILY #90 caps 04/05/24 11/10/24 Rx release sildenafil 25 mg tablet 25 mg PO DAILY PRN sexual activity 04/05/24 11/10/24 Rx #10 tabs Allergies Allergy/AdvReac Type Severity Reaction Status Date / Time Penicillins Allergy Unknown Unknown Verified 11/09/24 16:35 ezetimibe (From Zetia) AdvReac Mild Gastrointestinal Verified 11/09/24 16:35 Upset [id number] Reductase AdvReac Mild Muscle Pain Verified 11/09/24 16:35 Inhibitor Vital Signs Vital Signs - 24 hr 11/09/24 16:13 11/09/24 16:13 11/09/24 16:15 Temperature Pulse Rate 88 85 Pulse Rate [Bilateral Pedal (Dorsalis Pedis) Palpation] Pulse Rate [Left Radial Palpation] Pulse Rate [Right Radial Palpation] Respiratory Rate 18 Blood Pressure 114/85 Pulse Oximetry 93 Oxygen Delivery Mechanical Ventilation Bag Valve Mask Fraction of Inspired Oxygen 11/09/24 16:47 11/09/24 18:05 11/09/24 18:06 Temperature 98.0 F Pulse Rate 98 85 88 Pulse Rate [Bilateral Pedal (Dorsalis Pedis) Palpation] Pulse Rate [Left Radial Palpation] Pulse Rate [Right Radial Palpation] Respiratory Rate 20 Blood Pressure 126/92 H Pulse Oximetry 94 100 100 Oxygen Delivery Mechanical Ventilation Mechanical Ventilation Fraction of Inspired Oxygen 100 100 11/09/24 18:15 11/09/24 18:15 11/09/24 18:30 Temperature Pulse Rate 85 87 Pulse Rate [Bilateral Pedal (Dorsalis Pedis) Palpation] Pulse Rate [Left Radial Palpation] Pulse Rate [Right Radial Palpation] Respiratory Rate Blood Pressure Pulse Oximetry 100 100 Oxygen Delivery Mechanical Ventilation Mechanical Ventilation Fraction of Inspired Oxygen 100 100 11/09/24 18:46 11/09/24 19:14 11/09/24 19:37 Temperature Pulse Rate 96 101 H Pulse Rate [Bilateral Pedal (Dorsalis Pedis) Palpation] Pulse Rate [Left Radial Palpation] Pulse Rate [Right Radial Palpation] Respiratory Rate 22 H Blood Pressure 116/91 H Pulse Oximetry 100 100 Oxygen Delivery Mechanical Ventilation Fraction of Inspired Oxygen 100 100 11/09/24 19:45 11/09/24 20:00 11/09/24 20:00 Temperature Pulse Rate 100 102 H Pulse Rate [Bilateral Pedal (Dorsalis Pedis) Palpation] Pulse Rate [Left Radial Palpation] Pulse Rate [Right Radial Palpation] Respiratory Rate 22 H 22 H Blood Pressure 131/93 H 116/96 H Pulse Oximetry 100 97 Oxygen Delivery Fraction of Inspired Oxygen 50 11/09/24 20:00 11/09/24 20:30 11/09/24 20:35 Temperature Pulse Rate 102 H 102 H 100 Pulse Rate [Bilateral Pedal (Dorsalis Pedis) Palpation] Pulse Rate [Left Radial Palpation] Pulse Rate [Right Radial Palpation] Respiratory Rate 22 H 22 H Blood Pressure 127/93 H Pulse Oximetry 96 100 Oxygen Delivery Mechanical Ventilation Fraction of Inspired Oxygen 50 11/09/24 20:44 11/09/24 21:00 11/09/24 21:00 Temperature Pulse Rate 102 H 98 100 Pulse Rate [Bilateral Pedal (Dorsalis Pedis) Palpation] Pulse Rate [Left Radial Palpation] Pulse Rate [Right Radial Palpation] Respiratory Rate 20 24 H 23 H Blood Pressure 116/96 H 120/85 120/85 Pulse Oximetry 97 96 92 Oxygen Delivery Fraction of Inspired Oxygen 11/09/24 21:30 11/09/24 21:34 11/09/24 22:00 Temperature 99 F Pulse Rate 100 97 96 Pulse Rate [Bilateral Pedal (Dorsalis Pedis) Palpation] Pulse Rate [Left Radial Palpation] Pulse Rate [Right Radial Palpation] Respiratory Rate 24 H 30 H 25 H Blood Pressure 140/89 140/89 130/81 Pulse Oximetry 97 93 91 Oxygen Delivery Fraction of Inspired Oxygen 11/09/24 22:00 11/09/24 22:30 11/09/24 22:46 Temperature Pulse Rate 97 90 115 H Pulse Rate [Bilateral Pedal (Dorsalis Pedis) Palpation] Pulse Rate [Left Radial Palpation] Pulse Rate [Right Radial Palpation] Respiratory Rate 22 H 31 H Blood Pressure 120/80 Pulse Oximetry 94 Oxygen Delivery Fraction of Inspired Oxygen 11/09/24 22:46 11/09/24 23:03 11/09/24 23:20 Temperature Pulse Rate 121 H 104 H 89 Pulse Rate [Bilateral Pedal (Dorsalis Pedis) Palpation] Pulse Rate [Left Radial Palpation] Pulse Rate [Right Radial Palpation] Respiratory Rate 31 H 22 H Blood Pressure Pulse Oximetry 99 Oxygen Delivery Mechanical Ventilation Fraction of Inspired Oxygen 50 11/09/24 23:21 11/10/24 00:00 11/10/24 00:00 Temperature Pulse Rate 87 83 83 Pulse Rate [Bilateral Pedal (Dorsalis Pedis) Palpation] Pulse Rate [Left Radial Palpation] Pulse Rate [Right Radial Palpation] Respiratory Rate 22 H 22 H 22 H Blood Pressure Pulse Oximetry Oxygen Delivery Fraction of Inspired Oxygen 11/10/24 00:00 11/10/24 00:00 11/10/24 00:00 Temperature Pulse Rate 86 85 Pulse Rate [Bilateral Pedal (Dorsalis Pedis) Palpation] Pulse Rate [Left Radial Palpation] Pulse Rate [Right Radial Palpation] Respiratory Rate 22 H Blood Pressure 94/73 L Pulse Oximetry 93 Oxygen Delivery Fraction of Inspired Oxygen 50 11/10/24 00:16 11/10/24 00:30 11/10/24 00:31 Temperature 99.1 F 98.4 F Pulse Rate 85 86 82 Pulse Rate [Bilateral Pedal (Dorsalis Pedis) Palpation] Pulse Rate [Left Radial Palpation] Pulse Rate [Right Radial Palpation] Respiratory Rate 22 H 22 H 22 H Blood Pressure 94/73 L 102/77 102/77 Pulse Oximetry 92 92 95 Oxygen Delivery Fraction of Inspired Oxygen 11/10/24 00:45 11/10/24 01:00 11/10/24 01:00 Temperature 98.4 F 97.3 F L Pulse Rate 83 83 83 Pulse Rate [Bilateral Pedal (Dorsalis Pedis) Palpation] Pulse Rate [Left Radial Palpation] Pulse Rate [Right Radial Palpation] Respiratory Rate 22 H 22 H 22 H Blood Pressure 105/80 92/72 L Pulse Oximetry 96 95 95 Oxygen Delivery Mechanical Ventilation Fraction of Inspired Oxygen 50 11/10/24 01:31 11/10/24 02:00 11/10/24 02:00 Temperature 99.5 F 99.4 F Pulse Rate 80 83 83 Pulse Rate [Bilateral Pedal (Dorsalis Pedis) Palpation] Pulse Rate [Left Radial Palpation] Pulse Rate [Right Radial Palpation] Respiratory Rate 22 H 22 H Blood Pressure 99/83 L 105/77 Pulse Oximetry 97 97 Oxygen Delivery Fraction of Inspired Oxygen 11/10/24 02:00 11/10/24 02:00 11/10/24 02:00 Temperature 99.3 F Pulse Rate 77 77 78 Pulse Rate [Bilateral Pedal (Dorsalis Pedis) Palpation] Pulse Rate [Left Radial Palpation] Pulse Rate [Right Radial Palpation] Respiratory Rate 22 H 22 H 20 Blood Pressure 105/77 Pulse Oximetry 96 Oxygen Delivery Fraction of Inspired Oxygen 11/10/24 02:05 11/10/24 02:15 11/10/24 02:25 Temperature 99.2 F Pulse Rate 80 78 78 Pulse Rate [Bilateral Pedal (Dorsalis Pedis) Palpation] Pulse Rate [Left Radial Palpation] Pulse Rate [Right Radial Palpation] Respiratory Rate 22 H 22 H Blood Pressure 109/82 109/82 Pulse Oximetry 98 96 96 Oxygen Delivery Mechanical Ventilation Fraction of Inspired Oxygen 50 11/10/24 02:30 11/10/24 02:57 11/10/24 03:00 Temperature 99.2 F 99 F Pulse Rate 77 77 77 Pulse Rate [Bilateral Pedal (Dorsalis Pedis) Palpation] Pulse Rate [Left Radial Palpation] Pulse Rate [Right Radial Palpation] Respiratory Rate 22 H 22 H 22 H Blood Pressure 110/75 102/74 107/74 Pulse Oximetry 96 97 95 Oxygen Delivery Fraction of Inspired Oxygen 11/10/24 03:00 11/10/24 03:00 11/10/24 03:15 Temperature 99 F 98.9 F Pulse Rate 76 76 75 Pulse Rate [Bilateral Pedal (Dorsalis Pedis) Palpation] 76 Pulse Rate [Left Radial Palpation] 76 Pulse Rate [Right Radial Palpation] 76 Respiratory Rate 22 H 22 H 22 H Blood Pressure 107/74 107/74 94/77 L Pulse Oximetry 96 96 96 Oxygen Delivery Fraction of Inspired Oxygen 11/10/24 03:30 11/10/24 04:00 11/10/24 04:00 Temperature 98.9 F 98.9 F Pulse Rate 75 77 74 Pulse Rate [Bilateral Pedal (Dorsalis Pedis) Palpation] 75 Pulse Rate [Left Radial Palpation] 75 Pulse Rate [Right Radial Palpation] 75 Respiratory Rate 22 H 22 H 22 H Blood Pressure 99/75 L 100/72 100/72 Pulse Oximetry 96 97 97 Oxygen Delivery Fraction of Inspired Oxygen 11/10/24 04:00 11/10/24 04:00 11/10/24 04:00 Temperature Pulse Rate 77 78 Pulse Rate [Bilateral Pedal (Dorsalis Pedis) Palpation] Pulse Rate [Left Radial Palpation] Pulse Rate [Right Radial Palpation] Respiratory Rate 22 H 22 H Blood Pressure Pulse Oximetry Oxygen Delivery Fraction of Inspired Oxygen 45 11/10/24 04:00 11/10/24 04:10 11/10/24 04:15 Temperature 98.9 F Pulse Rate 75 77 75 Pulse Rate [Bilateral Pedal (Dorsalis Pedis) Palpation] Pulse Rate [Left Radial Palpation] Pulse Rate [Right Radial Palpation] Respiratory Rate 22 H 22 H Blood Pressure 108/77 Pulse Oximetry 97 97 Oxygen Delivery Mechanical Ventilation Fraction of Inspired Oxygen 45 11/10/24 04:30 11/10/24 04:39 11/10/24 04:49 Temperature 98.7 F Pulse Rate 77 75 77 Pulse Rate [Bilateral Pedal (Dorsalis Pedis) Palpation] 77 Pulse Rate [Left Radial Palpation] 77 Pulse Rate [Right Radial Palpation] 77 Respiratory Rate 22 H 22 H 22 H Blood Pressure 107/74 107/74 Pulse Oximetry 96 96 Oxygen Delivery Fraction of Inspired Oxygen 11/10/24 04:55 11/10/24 05:00 11/10/24 05:05 Temperature 98.7 F 98.6 F Pulse Rate 77 76 75 Pulse Rate [Bilateral Pedal (Dorsalis Pedis) Palpation] Pulse Rate [Left Radial Palpation] Pulse Rate [Right Radial Palpation] Respiratory Rate 16 22 H Blood Pressure 108/79 101/71 Pulse Oximetry 96 96 95 Oxygen Delivery Mechanical Ventilation Fraction of Inspired Oxygen 45 11/10/24 05:06 11/10/24 05:30 11/10/24 06:00 Temperature 98.6 F 98.6 F Pulse Rate 77 76 Pulse Rate [Bilateral Pedal (Dorsalis Pedis) Palpation] 77 Pulse Rate [Left Radial Palpation] 77 Pulse Rate [Right Radial Palpation] 77 Respiratory Rate 22 H 22 H Blood Pressure 101/71 97/71 L Pulse Oximetry 96 96 Oxygen Delivery Fraction of Inspired Oxygen 11/10/24 06:00 11/10/24 06:00 11/10/24 06:16 Temperature Pulse Rate 77 75 Pulse Rate [Bilateral Pedal (Dorsalis Pedis) Palpation] 77 Pulse Rate [Left Radial Palpation] 77 Pulse Rate [Right Radial Palpation] 77 Respiratory Rate 22 H Blood Pressure 97/71 L Pulse Oximetry 95 Oxygen Delivery Fraction of Inspired Oxygen 11/10/24 06:24 11/10/24 07:00 11/10/24 08:00 Temperature 98.9 F 98.8 F 99.1 F Pulse Rate 75 77 76 Pulse Rate [Bilateral Pedal (Dorsalis Pedis) Palpation] Pulse Rate [Left Radial Palpation] Pulse Rate [Right Radial Palpation] Respiratory Rate 22 H 22 H 22 H Blood Pressure 104/72 105/73 104/73 Pulse Oximetry 95 95 96 Oxygen Delivery Fraction of Inspired Oxygen 11/10/24 08:00 11/10/24 08:00 11/10/24 08:00 Temperature 99.1 F Pulse Rate Pulse Rate [Bilateral Pedal (Dorsalis Pedis) Palpation] Pulse Rate [Left Radial Palpation] Pulse Rate [Right Radial Palpation] Respiratory Rate Blood Pressure Pulse Oximetry 96 Oxygen Delivery Mechanical Ventilation Fraction of Inspired Oxygen 45 45 11/10/24 08:00 11/10/24 08:00 11/10/24 08:00 Temperature Pulse Rate 78 76 76 Pulse Rate [Bilateral Pedal (Dorsalis Pedis) Palpation] Pulse Rate [Left Radial Palpation] Pulse Rate [Right Radial Palpation] Respiratory Rate 22 H 22 H Blood Pressure Pulse Oximetry Oxygen Delivery Fraction of Inspired Oxygen 11/10/24 08:16 11/10/24 09:00 11/10/24 09:00 Temperature 97.5 F L 99.6 F Pulse Rate 76 77 77 Pulse Rate [Bilateral Pedal (Dorsalis Pedis) Palpation] Pulse Rate [Left Radial Palpation] Pulse Rate [Right Radial Palpation] Respiratory Rate 22 H 22 H Blood Pressure 103/68 103/68 Pulse Oximetry 96 95 95 Oxygen Delivery Mechanical Ventilation Fraction of Inspired Oxygen 45 11/10/24 10:00 11/10/24 10:00 11/10/24 10:00 Temperature 99.8 F H 99.9 F H Pulse Rate 79 80 80 Pulse Rate [Bilateral Pedal (Dorsalis Pedis) Palpation] Pulse Rate [Left Radial Palpation] Pulse Rate [Right Radial Palpation] Respiratory Rate 20 22 H Blood Pressure 105/71 105/71 Pulse Oximetry 95 95 Oxygen Delivery Fraction of Inspired Oxygen 11/10/24 10:00 11/10/24 10:00 Temperature Pulse Rate 80 80 Pulse Rate [Bilateral Pedal (Dorsalis Pedis) Palpation] Pulse Rate [Left Radial Palpation] Pulse Rate [Right Radial Palpation] Respiratory Rate 22 H 22 H Blood Pressure Pulse Oximetry Oxygen Delivery Fraction of Inspired Oxygen Exam 2 Narrative: General: Intubated, sedated, in no acute distress HEENT:? Pupils equal and reactive, sclerae is clear, ETT in place Neck:? Supple Respiratory:? Coarse breath sounds bilaterally, decreased at bases, no wheezing, adequate air entry Cardiac:? S1-S2 normal, regular rate and rhythm Abdomen:? Soft, nontender, nondistended, hypoactive bowel sounds Extremities:? No edema, palpable pedal pulses, Neuro:? Patient is intubated, sedated, opens his eyes to name, did follow commands when asked to wiggle his toes but not consistent. He does not squeeze my fingers in Skin:? No skin lesions noted Psych:? Unable to assess at this time Results Labs 11/10/24 04:31 11/10/24 04:31 Labs: Short CBC 11/09/24 11/09/24 11/09/24 Range/Units 18:25 19:51 20:44 WBC 16.5 H 14.0 H 15.6 H (4.5-10.0) K/mm3 Hgb 14.1 12.9 L 12.8 L (14.0-18.0) g/dL Hct 41.4 L 37.0 L 36.9 L (42.0-52.0) % Plt Count 222 131 L 140 L (150-375) k/mm3 11/10/24 Range/Units 04:31 WBC 12.5 H (4.5-10.0) K/mm3 Hgb 11.5 L (14.0-18.0) g/dL Hct 33.8 L (42.0-52.0) % Plt Count 185 (150-375) k/mm3 BMP 11/09/24 11/10/24 18:25 04:31 Sodium 136 L 138 Potassium 4.1 4.4 Chloride 104 105 Carbon Dioxide 19 L 24 BUN 15 17 Creatinine 1.19 1.15 Glucose 144 H 159 H Calcium 8.3 L 8.2 L Cardiac Enzymes 11/09/24 11/10/24 Range/Units 18:25 04:31 Total Creatine Kinase 633 H 830 H (55-170) U/L Troponin I 9.090 H* (0.000-0.034) ng/mL Liver Function 11/09/24 11/10/24 Range/Units 18:25 04:31 Total Bilirubin 1.1 1.1 (0.2-1.3) mg/dL AST 96 H 109 H (17-59) U/L ALT 68 H 58 H (6-50) U/L Alkaline Phosphatase 51 45 (38-126) U/L Albumin 3.8 3.7 (3.5-5.1) g/dL Quality VTE Prophylaxis VTE prophylaxis: mechanical ordered If No VTE Prophylaxis Answer both mechanical and pharmacologic: Reason no pharmacologic proph: medical contraindication active bleeding/bleeding risk, coagulation disorder and supratherapeutic INR >3 Hospitalist MIPS Advance Care Plan I have confirmed that the patient's Advanced Care Plan is present, code status is documented, or surrogate decision maker is listed in patient medical record.: Yes Medication Reconciliation I have utilized all available resources to obtain, update and review the patients current medications (includes all prescriptions, OTC, herbals, cannabis, and nutritional supplements).: Yes
[2024-11-10] MEDS: PERFLUTREN LIPID MICROSPHERES 1.5 ML VIAL DILUTED TO 10 ML TOTAL VOLUME IV PUSH (11:30)
[2024-11-10] MEDS: PANTOPRAZOLE SODIUM IV 40 MG VIAL IV PUSH ×2 (11:51→20:46)
[2024-11-10 12:00] LABS: Glucose Point of Care 100 mg/dl (65-105)
[2024-11-10 12:18] LABS: Lactic Acid Reflex 1.7 mmol/L (0.7-2.0)
--- NOTE | 2024-11-10 12:18 | IVDEFINITY ---
Prior to administration of IV Definity the patient was educated on the risks and benefits of the imaging enhancing agent including potential adverse side effects. The patient verbalized understanding. Allergies were verified. No exclusion criteria were identified and at least one of the following inclusion criteria were met: 1) physician request, 2) patient technically difficult to image (per the [place] [employer] guidelines of two or more segments not discernable within the apical view), or 3) questionable left ventricular function. ?
[2024-11-10 12:19] LABS: Anion Gap 7 mmol/L (4-12); Blood Urea Nitrogen 19 mg/dL (9-20); Calcium 8.1 mg/dL (8.4-10.2); Carbon Dioxide 27 mmol/L (22-30); Chloride 103 mmol/L (98-107); Estimated CRCL calculation 67 ml/min; Estimated Glomerular Filt Rate > 60; Glucose 126 mg/dL (65-110); Magnesium 1.8 mg/dL (1.6-2.3); Phosphorus 3.5 mg/dL (2.5-4.5); Potassium 3.9 mmol/L (3.4-5.0); Sodium 137 mmol/L (137-145)
[2024-11-10 12:20] LABS: Creatine Kinase 790 U/L (55-170)
[2024-11-10 12:54] LABS: Glucose Point of Care 108 mg/dl (65-105)
[2024-11-10] MEDS: MIDAZOLAM HCL (*CRX) 2 MG/2 ML VIAL IV PUSH (13:22)
[2024-11-10] MEDS: ROCURONIUM BROMIDE 50 MG/5 ML VIAL IV PUSH (13:31)
[2024-11-10] MEDS: PROPOFOL IV EMULSION 200 MG/20 ML VIAL 30 MG IV PUSH (13:32)
[2024-11-10] MEDS: SODIUM BICARBONATE 8.4% 50 MEQ/50 ML SYRINGE IV PUSH (13:40)
[2024-11-10] MEDS: EPINEPHrine INJ 1 MG/10 ML SYRINGE XX (13:40)
[2024-11-10 13:58] LABS: Glucose Point of Care 137 mg/dl (65-105)
[2024-11-10] MEDS: IPRATROPIUM 0.5 MG/ALBUTEROL SULFATE 2.5 MG AMPUL.NEB 3 ML INHALATION ×2 (14:06→21:11)
[2024-11-10 14:17] LABS: Glucose Point of Care 127 mg/dl (65-105)
--- NOTE | 2024-11-10 14:27 | PCRCNOTE ---
RT was called due to ventilator alarming about the flow sensor. RT was on the way to assess when called again to come to patient's room stat. Upon RT arriving, Dr. Rodriguez was bagging patient and was unable to ventilate and oxygenate patient. Plan was to reinutubate with a size 8.0 ETT. Bouge used to exchange ETT and there was a huge blood clot found on the end of the 7.0 ETT that the patient was originally intubated with. 8.0 ETT @ 25 @ the lip but diminished breathsounds heard on the left so pulled ETT back to 24 @ the lip. Once exchanged patient was easier to bag and secured @ 24 prior to chest xray. Patient's vent settings changed to VT 480 Rate 22 PEEP 8 and 100% FiO2. Chest xray obtained and patient is found to have a pneumo on the left side. At 1422 Dr. Rodriguez had RT change PEEP to 5. Patient currently on ventilator waiting for chest tube to be inserted.
--- NOTE | 2024-11-10 14:49 | PM.EVENT ---
Event Note Event Note Event Note: At around 1:30 p.m., was called to see the patient in the room as he was getting restless, tachypneic, tachycardic. Ventilator was alarming high peak pressures -on lung exam no air entry 0 breath sounds were auscultated, patient central dropped oxygen saturation in this 80s and then 70s. Started bagging patient, bagging was very difficult. During all dex patient did drop his O2 sats in the 40s, heart rate in the 50s, was given amp of epinephrine and an amp of bicarb. I decided to exchange the ETT which was size 7 to a larger size tube. -utilizing the glide scope, removed the ETT which had a large mucus plug in the and. -successful re-intubation with a size 8 ET tube using the glide scope -once ETT was exchange, bagging was much easy -post intubation auscultation did not reveal left-sided breath sounds, - stat chest x-ray chest x-ray showed large left pneumothorax had interval development of opacification in the right joellen thorax which may reflect atelectasis edema -surgery has been consulted to insert left-sided chest tube -will start antibiotics
--- NOTE | 2024-11-10 14:57 | WPDPROCEDUR ---
Procedures Intubation Intubation Date: 11/10/24 Intubation Time: 13:33 A pre-procedural Time-Out was completed immediately before starting the procedure and confirmed: Patient Identification, Site, Procedure, Patient Position and the Availability of Requisite Equipment: Yes Sedative: fentanyl Paralytic: rocuronium Laryngoscope: fiber optic video scope Assist device used: fiber optic device ET tube size: 8 Tube secured depth (cm): 25 Tube secured location: lips Tube placement confirmation: visualized tube passing through cords, equal breath sounds bilaterally, no breath sounds over epigastrium and confirmation by capnometry Patient tolerated procedure: well Intubation complications: none
--- NOTE | 2024-11-10 15:20 | P.OP_ITS ---
Procedure Note - Detailed Date of Procedure 11/10/24 Pre-op Diagnosis large left pneumothorax Post-op Diagnosis Same Procedure Performed placement of left chest tube Surgeon Charmaine Lockwood MD [employer]or Dr. Rodriguez Anesthesia Local Indications 68-year-old male with large spontaneous left pneumothorax likely secondary to barotrauma Findings large L pneumothorax Description of Procedure Patient was placed in the supine position and consent was obtained. I began by localizing the left chest at the area of our anticipated incision, at the level of the nipple and anterior axillary line. I then prepped and draped the area. A time-out was done to verify the patient's identity, as well as the procedure being performed. I then made an incision with a 15 blade scalpel at the level the nipple and anterior axillary. This incision was carried down to the chest cavity. I then used a Karie clamp to gain access into the chest at the 4th intercostal space. Immediately upon getting into the chest a large lemus of air was evacuated. I then placed a 20 Austrian chest tube directing this posterior and superior. I then sutured the chest tube in place. Vaseline gauze and sterile dressing were applied and the chest tube was connected to the atrium device. The patient tolerated the procedure well. Implants left-sided 20 Austrian chest tube Estimated Blood Loss 5 Drains No Packing No Pathology None sent Complications No immediate complications Condition Critical Disposition ICU [facility] Billing Surgery - Charge Forward: Surgery Billing
--- NOTE | 2024-11-10 15:23 | PM.CNGS ---
Assessment and Plan Assessment and plan (1) Pneumothorax, left: Code(s): J93.9 - Pneumothorax, unspecified Status: Acute Assessment and Plan: will place emergent left chest tube History of Present Illness Consult details Consult date: 11/10/24 Reason for consult: chest tube Requesting physician: Kenneth Rodriguez MD Narrative: The patient is a 68-year-old male currently in the ICU with respiratory failure status post NH. The patient was found to have a large mucus plug at the end of the ET tube and this was exchanged. Post procedure x-ray showed a large left pneumothorax. The patient is currently satting in the 80s. All history is obtained via the chart as the patient is intubated, sedated. Review of Systems Review of Systems: ROS unobtainable: Yes unobtainable due to endotracheal tube and unobtainable due to medical condition PMFSH Past Medical History Medical History Kidney stones Hyperlipidemia Peripheral polyneuropathy Hypertension Surgical History Surgical History History of cystoscopy Family History Family History Mother Hypertension Father Cancer of kidney Lung cancer Tobacco abuse Sibling Lung cancer Tobacco abuse Social History Social History Social History: Surrogate medical decision maker: Rut Mickisuzan, spouse. Code status: Full code. Smoking packs per day: 2 Smoking cigarettes per day: 40.0 Years smoked: 30 Smoking pack-years: 60.00 Smoking status: Former smoker Tobacco type: cigarettes Second hand tobacco smoke exposure: No Smoking end date: 08/12/05 Alcohol intake: current Drinks per week: 30 Substance use: never Substance use type: does not use Do You Feel Safe in your Home?: Yes Lack of Transportation: No Lack of Food: Never True Current Housing: I Have Housing Concerned About Future Housing: No Difficulty Paying Gas/Electric Bills: No Difficulty Paying for Meds: No Currently Unemployed: No Education: Trade/Vocational Certificate Difficulty w/ Childcare or Family Care: No Living arrangements: with family Additional living arrangements comments: Lives with spouse in [place]. They have 2 daughters. Occupation/Education: retired Additional occupation/education comments: [employer]. Spiritual care concerns: No Meds Home Medications and Allergies Home Medications ?Medication ?Instructions ?Recorded ?Confirmed ?Type nebivolol 10 mg tablet (Bystolic) 10 mg PO DAILY #90 tabs 03/30/24 11/10/24 Rx gabapentin 300 mg capsule 300 mg PO BID #180 caps 04/05/24 11/10/24 Rx omeprazole 20 mg capsule,delayed 20 mg PO DAILY #90 caps 04/05/24 11/10/24 Rx release sildenafil 25 mg tablet 25 mg PO DAILY PRN sexual activity 04/05/24 11/10/24 Rx #10 tabs Allergies Allergy/AdvReac Type Severity Reaction Status Date / Time Penicillins Allergy Unknown Unknown Verified 11/09/24 16:35 ezetimibe (From Zetia) AdvReac Mild Gastrointestinal Verified 11/09/24 16:35 Upset [id number] Reductase AdvReac Mild Muscle Pain Verified 11/09/24 16:35 Inhibitor Vital Signs Vital Signs - 24 hr 11/09/24 16:13 11/09/24 16:13 11/09/24 16:15 Temperature Pulse Rate 88 85 Pulse Rate [Bilateral Pedal (Dorsalis Pedis) Palpation] Pulse Rate [Left Radial Palpation] Pulse Rate [Right Radial Palpation] Respiratory Rate 18 Blood Pressure 114/85 Pulse Oximetry 93 Oxygen Delivery Mechanical Ventilation Bag Valve Mask Fraction of Inspired Oxygen 11/09/24 16:47 11/09/24 18:05 11/09/24 18:06 Temperature 36.7 C Pulse Rate 98 85 88 Pulse Rate [Bilateral Pedal (Dorsalis Pedis) Palpation] Pulse Rate [Left Radial Palpation] Pulse Rate [Right Radial Palpation] Respiratory Rate 20 Blood Pressure 126/92 H Pulse Oximetry 94 100 100 Oxygen Delivery Mechanical Ventilation Mechanical Ventilation Fraction of Inspired Oxygen 100 100 11/09/24 18:15 11/09/24 18:15 11/09/24 18:30 Temperature Pulse Rate 85 87 Pulse Rate [Bilateral Pedal (Dorsalis Pedis) Palpation] Pulse Rate [Left Radial Palpation] Pulse Rate [Right Radial Palpation] Respiratory Rate Blood Pressure Pulse Oximetry 100 100 Oxygen Delivery Mechanical Ventilation Mechanical Ventilation Fraction of Inspired Oxygen 100 100 11/09/24 18:46 11/09/24 19:14 11/09/24 19:37 Temperature Pulse Rate 96 101 H Pulse Rate [Bilateral Pedal (Dorsalis Pedis) Palpation] Pulse Rate [Left Radial Palpation] Pulse Rate [Right Radial Palpation] Respiratory Rate 22 H Blood Pressure 116/91 H Pulse Oximetry 100 100 Oxygen Delivery Mechanical Ventilation Fraction of Inspired Oxygen 100 100 11/09/24 19:45 11/09/24 20:00 11/09/24 20:00 Temperature Pulse Rate 100 102 H Pulse Rate [Bilateral Pedal (Dorsalis Pedis) Palpation] Pulse Rate [Left Radial Palpation] Pulse Rate [Right Radial Palpation] Respiratory Rate 22 H 22 H Blood Pressure 131/93 H 116/96 H Pulse Oximetry 100 97 Oxygen Delivery Fraction of Inspired Oxygen 50 11/09/24 20:00 11/09/24 20:30 11/09/24 20:35 Temperature Pulse Rate 102 H 102 H 100 Pulse Rate [Bilateral Pedal (Dorsalis Pedis) Palpation] Pulse Rate [Left Radial Palpation] Pulse Rate [Right Radial Palpation] Respiratory Rate 22 H 22 H Blood Pressure 127/93 H Pulse Oximetry 96 100 Oxygen Delivery Mechanical Ventilation Fraction of Inspired Oxygen 50 11/09/24 20:44 11/09/24 21:00 11/09/24 21:00 Temperature Pulse Rate 102 H 98 100 Pulse Rate [Bilateral Pedal (Dorsalis Pedis) Palpation] Pulse Rate [Left Radial Palpation] Pulse Rate [Right Radial Palpation] Respiratory Rate 20 24 H 23 H Blood Pressure 116/96 H 120/85 120/85 Pulse Oximetry 97 96 92 Oxygen Delivery Fraction of Inspired Oxygen 11/09/24 21:30 11/09/24 21:34 11/09/24 22:00 Temperature 37.2 C Pulse Rate 100 97 96 Pulse Rate [Bilateral Pedal (Dorsalis Pedis) Palpation] Pulse Rate [Left Radial Palpation] Pulse Rate [Right Radial Palpation] Respiratory Rate 24 H 30 H 25 H Blood Pressure 140/89 140/89 130/81 Pulse Oximetry 97 93 91 Oxygen Delivery Fraction of Inspired Oxygen 11/09/24 22:00 11/09/24 22:30 11/09/24 22:46 Temperature Pulse Rate 97 90 115 H Pulse Rate [Bilateral Pedal (Dorsalis Pedis) Palpation] Pulse Rate [Left Radial Palpation] Pulse Rate [Right Radial Palpation] Respiratory Rate 22 H 31 H Blood Pressure 120/80 Pulse Oximetry 94 Oxygen Delivery Fraction of Inspired Oxygen 11/09/24 22:46 11/09/24 23:03 11/09/24 23:20 Temperature Pulse Rate 121 H 104 H 89 Pulse Rate [Bilateral Pedal (Dorsalis Pedis) Palpation] Pulse Rate [Left Radial Palpation] Pulse Rate [Right Radial Palpation] Respiratory Rate 31 H 22 H Blood Pressure Pulse Oximetry 99 Oxygen Delivery Mechanical Ventilation Fraction of Inspired Oxygen 50 11/09/24 23:21 11/10/24 00:00 11/10/24 00:00 Temperature Pulse Rate 87 83 83 Pulse Rate [Bilateral Pedal (Dorsalis Pedis) Palpation] Pulse Rate [Left Radial Palpation] Pulse Rate [Right Radial Palpation] Respiratory Rate 22 H 22 H 22 H Blood Pressure Pulse Oximetry Oxygen Delivery Fraction of Inspired Oxygen 11/10/24 00:00 11/10/24 00:00 11/10/24 00:00 Temperature Pulse Rate 86 85 Pulse Rate [Bilateral Pedal (Dorsalis Pedis) Palpation] Pulse Rate [Left Radial Palpation] Pulse Rate [Right Radial Palpation] Respiratory Rate 22 H Blood Pressure 94/73 L Pulse Oximetry 93 Oxygen Delivery Fraction of Inspired Oxygen 50 11/10/24 00:16 11/10/24 00:30 11/10/24 00:31 Temperature 37.3 C 36.9 C Pulse Rate 85 86 82 Pulse Rate [Bilateral Pedal (Dorsalis Pedis) Palpation] Pulse Rate [Left Radial Palpation] Pulse Rate [Right Radial Palpation] Respiratory Rate 22 H 22 H 22 H Blood Pressure 94/73 L 102/77 102/77 Pulse Oximetry 92 92 95 Oxygen Delivery Fraction of Inspired Oxygen 11/10/24 00:45 11/10/24 01:00 11/10/24 01:00 Temperature 36.9 C 36.3 C L Pulse Rate 83 83 83 Pulse Rate [Bilateral Pedal (Dorsalis Pedis) Palpation] Pulse Rate [Left Radial Palpation] Pulse Rate [Right Radial Palpation] Respiratory Rate 22 H 22 H 22 H Blood Pressure 105/80 92/72 L Pulse Oximetry 96 95 95 Oxygen Delivery Mechanical Ventilation Fraction of Inspired Oxygen 50 11/10/24 01:31 11/10/24 02:00 11/10/24 02:00 Temperature 37.5 C 37.4 C Pulse Rate 80 83 83 Pulse Rate [Bilateral Pedal (Dorsalis Pedis) Palpation] Pulse Rate [Left Radial Palpation] Pulse Rate [Right Radial Palpation] Respiratory Rate 22 H 22 H Blood Pressure 99/83 L 105/77 Pulse Oximetry 97 97 Oxygen Delivery Fraction of Inspired Oxygen 11/10/24 02:00 11/10/24 02:00 11/10/24 02:00 Temperature 37.4 C Pulse Rate 77 77 78 Pulse Rate [Bilateral Pedal (Dorsalis Pedis) Palpation] Pulse Rate [Left Radial Palpation] Pulse Rate [Right Radial Palpation] Respiratory Rate 22 H 22 H 20 Blood Pressure 105/77 Pulse Oximetry 96 Oxygen Delivery Fraction of Inspired Oxygen 11/10/24 02:05 11/10/24 02:15 11/10/24 02:25 Temperature 37.3 C Pulse Rate 80 78 78 Pulse Rate [Bilateral Pedal (Dorsalis Pedis) Palpation] Pulse Rate [Left Radial Palpation] Pulse Rate [Right Radial Palpation] Respiratory Rate 22 H 22 H Blood Pressure 109/82 109/82 Pulse Oximetry 98 96 96 Oxygen Delivery Mechanical Ventilation Fraction of Inspired Oxygen 50 11/10/24 02:30 11/10/24 02:57 11/10/24 03:00 Temperature 37.3 C 37.2 C Pulse Rate 77 77 77 Pulse Rate [Bilateral Pedal (Dorsalis Pedis) Palpation] Pulse Rate [Left Radial Palpation] Pulse Rate [Right Radial Palpation] Respiratory Rate 22 H 22 H 22 H Blood Pressure 110/75 102/74 107/74 Pulse Oximetry 96 97 95 Oxygen Delivery Fraction of Inspired Oxygen 11/10/24 03:00 11/10/24 03:00 11/10/24 03:15 Temperature 37.2 C 37.2 C Pulse Rate 76 76 75 Pulse Rate [Bilateral Pedal (Dorsalis Pedis) Palpation] 76 Pulse Rate [Left Radial Palpation] 76 Pulse Rate [Right Radial Palpation] 76 Respiratory Rate 22 H 22 H 22 H Blood Pressure 107/74 107/74 94/77 L Pulse Oximetry 96 96 96 Oxygen Delivery Fraction of Inspired Oxygen 11/10/24 03:30 11/10/24 04:00 11/10/24 04:00 Temperature 37.2 C 37.2 C Pulse Rate 75 77 74 Pulse Rate [Bilateral Pedal (Dorsalis Pedis) Palpation] 75 Pulse Rate [Left Radial Palpation] 75 Pulse Rate [Right Radial Palpation] 75 Respiratory Rate 22 H 22 H 22 H Blood Pressure 99/75 L 100/72 100/72 Pulse Oximetry 96 97 97 Oxygen Delivery Fraction of Inspired Oxygen 11/10/24 04:00 11/10/24 04:00 11/10/24 04:00 Temperature Pulse Rate 77 78 Pulse Rate [Bilateral Pedal (Dorsalis Pedis) Palpation] Pulse Rate [Left Radial Palpation] Pulse Rate [Right Radial Palpation] Respiratory Rate 22 H 22 H Blood Pressure Pulse Oximetry Oxygen Delivery Fraction of Inspired Oxygen 45 11/10/24 04:00 11/10/24 04:10 11/10/24 04:15 Temperature 37.2 C Pulse Rate 75 77 75 Pulse Rate [Bilateral Pedal (Dorsalis Pedis) Palpation] Pulse Rate [Left Radial Palpation] Pulse Rate [Right Radial Palpation] Respiratory Rate 22 H 22 H Blood Pressure 108/77 Pulse Oximetry 97 97 Oxygen Delivery Mechanical Ventilation Fraction of Inspired Oxygen 45 11/10/24 04:30 11/10/24 04:39 11/10/24 04:49 Temperature 37.1 C Pulse Rate 77 75 77 Pulse Rate [Bilateral Pedal (Dorsalis Pedis) Palpation] 77 Pulse Rate [Left Radial Palpation] 77 Pulse Rate [Right Radial Palpation] 77 Respiratory Rate 22 H 22 H 22 H Blood Pressure 107/74 107/74 Pulse Oximetry 96 96 Oxygen Delivery Fraction of Inspired Oxygen 11/10/24 04:55 11/10/24 05:00 11/10/24 05:05 Temperature 37.1 C 37.0 C Pulse Rate 77 76 75 Pulse Rate [Bilateral Pedal (Dorsalis Pedis) Palpation] Pulse Rate [Left Radial Palpation] Pulse Rate [Right Radial Palpation] Respiratory Rate 16 22 H Blood Pressure 108/79 101/71 Pulse Oximetry 96 96 95 Oxygen Delivery Mechanical Ventilation Fraction of Inspired Oxygen 45 11/10/24 05:06 11/10/24 05:30 11/10/24 06:00 Temperature 37.0 C 37.0 C Pulse Rate 77 76 Pulse Rate [Bilateral Pedal (Dorsalis Pedis) Palpation] 77 Pulse Rate [Left Radial Palpation] 77 Pulse Rate [Right Radial Palpation] 77 Respiratory Rate 22 H 22 H Blood Pressure 101/71 97/71 L Pulse Oximetry 96 96 Oxygen Delivery Fraction of Inspired Oxygen 11/10/24 06:00 11/10/24 06:00 11/10/24 06:16 Temperature Pulse Rate 77 75 Pulse Rate [Bilateral Pedal (Dorsalis Pedis) Palpation] 77 Pulse Rate [Left Radial Palpation] 77 Pulse Rate [Right Radial Palpation] 77 Respiratory Rate 22 H Blood Pressure 97/71 L Pulse Oximetry 95 Oxygen Delivery Fraction of Inspired Oxygen 11/10/24 06:24 11/10/24 07:00 11/10/24 08:00 Temperature 37.2 C 37.1 C 37.3 C Pulse Rate 75 77 76 Pulse Rate [Bilateral Pedal (Dorsalis Pedis) Palpation] Pulse Rate [Left Radial Palpation] Pulse Rate [Right Radial Palpation] Respiratory Rate 22 H 22 H 22 H Blood Pressure 104/72 105/73 104/73 Pulse Oximetry 95 95 96 Oxygen Delivery Fraction of Inspired Oxygen 11/10/24 08:00 11/10/24 08:00 11/10/24 08:00 Temperature 37.3 C Pulse Rate Pulse Rate [Bilateral Pedal (Dorsalis Pedis) Palpation] Pulse Rate [Left Radial Palpation] Pulse Rate [Right Radial Palpation] Respiratory Rate Blood Pressure Pulse Oximetry 96 Oxygen Delivery Mechanical Ventilation Fraction of Inspired Oxygen 45 45 11/10/24 08:00 11/10/24 08:00 11/10/24 08:00 Temperature Pulse Rate 78 76 76 Pulse Rate [Bilateral Pedal (Dorsalis Pedis) Palpation] Pulse Rate [Left Radial Palpation] Pulse Rate [Right Radial Palpation] Respiratory Rate 22 H 22 H Blood Pressure Pulse Oximetry Oxygen Delivery Fraction of Inspired Oxygen 11/10/24 08:16 11/10/24 09:00 11/10/24 09:00 Temperature 36.4 C L 37.6 C Pulse Rate 76 77 77 Pulse Rate [Bilateral Pedal (Dorsalis Pedis) Palpation] Pulse Rate [Left Radial Palpation] Pulse Rate [Right Radial Palpation] Respiratory Rate 22 H 22 H Blood Pressure 103/68 103/68 Pulse Oximetry 96 95 95 Oxygen Delivery Mechanical Ventilation Fraction of Inspired Oxygen 45 11/10/24 10:00 11/10/24 10:00 11/10/24 10:00 Temperature 37.7 C H 37.7 C H Pulse Rate 79 80 80 Pulse Rate [Bilateral Pedal (Dorsalis Pedis) Palpation] Pulse Rate [Left Radial Palpation] Pulse Rate [Right Radial Palpation] Respiratory Rate 20 22 H Blood Pressure 105/71 105/71 Pulse Oximetry 95 95 Oxygen Delivery Fraction of Inspired Oxygen 11/10/24 10:00 11/10/24 10:00 11/10/24 11:00 Temperature 37.9 C H Pulse Rate 80 80 80 Pulse Rate [Bilateral Pedal (Dorsalis Pedis) Palpation] Pulse Rate [Left Radial Palpation] Pulse Rate [Right Radial Palpation] Respiratory Rate 22 H 22 H 22 H Blood Pressure 109/73 Pulse Oximetry 94 Oxygen Delivery Fraction of Inspired Oxygen 11/10/24 11:00 11/10/24 11:31 11/10/24 12:00 Temperature 37.9 C H Pulse Rate 80 83 Pulse Rate [Bilateral Pedal (Dorsalis Pedis) Palpation] Pulse Rate [Left Radial Palpation] Pulse Rate [Right Radial Palpation] Respiratory Rate 22 H Blood Pressure 109/73 Pulse Oximetry 94 95 Oxygen Delivery Mechanical Ventilation Fraction of Inspired Oxygen 45 45 11/10/24 13:00 11/10/24 13:43 11/10/24 14:00 Temperature 38.3 C H 37.0 C Pulse Rate 98 120 H 133 H Pulse Rate [Bilateral Pedal (Dorsalis Pedis) Palpation] Pulse Rate [Left Radial Palpation] Pulse Rate [Right Radial Palpation] Respiratory Rate 15 20 Blood Pressure 124/75 106/76 Pulse Oximetry 95 86 L 89 L Oxygen Delivery Mechanical Ventilation Fraction of Inspired Oxygen 100 11/10/24 14:06 11/10/24 14:06 11/10/24 14:22 Temperature Pulse Rate 125 H 125 H 116 H Pulse Rate [Bilateral Pedal (Dorsalis Pedis) Palpation] Pulse Rate [Left Radial Palpation] Pulse Rate [Right Radial Palpation] Respiratory Rate 22 H Blood Pressure Pulse Oximetry 88 L 93 Oxygen Delivery Mechanical Ventilation Mechanical Ventilation Fraction of Inspired Oxygen 100 100 11/10/24 14:22 11/10/24 14:48 Temperature Pulse Rate 116 H Pulse Rate [Bilateral Pedal (Dorsalis Pedis) Palpation] Pulse Rate [Left Radial Palpation] Pulse Rate [Right Radial Palpation] Respiratory Rate 22 H Blood Pressure Pulse Oximetry Oxygen Delivery Fraction of Inspired Oxygen 100 Exam Const: General: ill appearing Other: Intubated, sedated HENMT: Head: normal to inspection, normocephalic and atraumatic Eyes: General: appearance normal, both eyes and all related structures Neck: Neck: normal visual inspection and no lymphadenopathy Resp: Auscultation: diminished lung sounds Other: diminished bilaterally left greater than right Cardio: Rate: regular rate Rhythm: regular rhythm GI: Inspection: normal to inspection Skin: General skin exam: normal color and no rashes or lesions noted Extrem: General: normal to inspection Results Labs 11/10/24 04:31 11/10/24 11:53 Labs: Abnormal lab results 11/09/24 11/09/24 11/09/24 Range/Units 18:25 19:23 19:51 WBC 16.5 H 14.0 H (4.5-10.0) K/mm3 RBC 4.22 L 3.81 L (4.6-6.20) M/mm3 Hgb 12.9 L (14.0-18.0) g/dL Hct 41.4 L 37.0 L (42.0-52.0) % Plt Count 131 L (150-375) k/mm3 Immature Gran % (Auto) 0.8 H (0-0.5) % Neut % (Auto) 86.0 H (45.5-73.1) % Lymph % (Auto) 5.2 L (18.3-44.2) % Lymph # (Auto) 0.86 L (0.9-3.2) K/mm3 [place] # (Auto) 1.2 H (0.1-0.6) K/mm3 Abs Immat Gran (auto) 0.13 H (0.00-0.031) K/mm3 Absolute Neuts (auto) 14.2 H (1.3-6.7) K/mm3 PT 73.4 H 32.6 H D (11.1-14.7) Seconds INR 9.0 H* APTT > 200.0 H* 37.0 H (22.3-36.8) Seconds Fibrinogen 197 L (215-510) mg/dl D-Dimer > 20.00 H (<0.48) ug/mL ABG pCO2 33.4 L (35.0-45.0) mmHg ABG pO2 195.1 H (80.0-100.0) mmHg ABG HCO3 19.2 L (22.0-26.0) mEq/l ABG O2 Saturation (95.0-100.0) % ABG O2 Content (16.0-22.0) %vol Sodium 136 L (137-145) mmol/L Carbon Dioxide 19 L (22-30) mmol/L Anion Gap 13 H (4-12) mmol/L Glucose 144 H (65-110) mg/dL POC Capillary Glucose (65-105) mg/dl Hemoglobin A1c 6.7 H (<5.7) % Lactic Acid 4.4 H* (0.7-2.0) mmol/L Calcium 8.3 L (8.4-10.2) mg/dL AST 96 H (17-59) U/L ALT 68 H (6-50) U/L Total Creatine Kinase 633 H (55-170) U/L Troponin I 9.090 H* (0.000-0.034) ng/mL U Benzodiazepines Scrn (Negative) 11/09/24 11/09/24 11/09/24 Range/Units 20:44 21:18 22:14 WBC 15.6 H (4.5-10.0) K/mm3 RBC 3.80 L (4.6-6.20) M/mm3 Hgb 12.8 L (14.0-18.0) g/dL Hct 36.9 L (42.0-52.0) % Plt Count 140 L (150-375) k/mm3 Immature Gran % (Auto) (0-0.5) % Neut % (Auto) (45.5-73.1) % Lymph % (Auto) (18.3-44.2) % Lymph # (Auto) (0.9-3.2) K/mm3 [place] # (Auto) (0.1-0.6) K/mm3 Abs Immat Gran (auto) (0.00-0.031) K/mm3 Absolute Neuts (auto) (1.3-6.7) K/mm3 PT 21.6 H D (11.1-14.7) Seconds INR APTT 60.5 H (22.3-36.8) Seconds Fibrinogen (215-510) mg/dl D-Dimer (<0.48) ug/mL ABG pCO2 (35.0-45.0) mmHg ABG pO2 (80.0-100.0) mmHg ABG HCO3 (22.0-26.0) mEq/l ABG O2 Saturation (95.0-100.0) % ABG O2 Content (16.0-22.0) %vol Sodium (137-145) mmol/L Carbon Dioxide (22-30) mmol/L Anion Gap (4-12) mmol/L Glucose (65-110) mg/dL POC Capillary Glucose (65-105) mg/dl Hemoglobin A1c (<5.7) % Lactic Acid 3.8 H (0.7-2.0) mmol/L Calcium (8.4-10.2) mg/dL AST (17-59) U/L ALT (6-50) U/L Total Creatine Kinase (55-170) U/L Troponin I (0.000-0.034) ng/mL U Benzodiazepines Scrn (Negative) 11/09/24 11/09/24 11/10/24 Range/Units 22:18 22:53 00:08 WBC (4.5-10.0) K/mm3 RBC (4.6-6.20) M/mm3 Hgb (14.0-18.0) g/dL Hct (42.0-52.0) % Plt Count (150-375) k/mm3 Immature Gran % (Auto) (0-0.5) % Neut % (Auto) (45.5-73.1) % Lymph % (Auto) (18.3-44.2) % Lymph # (Auto) (0.9-3.2) K/mm3 [place] # (Auto) (0.1-0.6) K/mm3 Abs Immat Gran (auto) (0.00-0.031) K/mm3 Absolute Neuts (auto) (1.3-6.7) K/mm3 PT (11.1-14.7) Seconds INR APTT (22.3-36.8) Seconds Fibrinogen (215-510) mg/dl D-Dimer (<0.48) ug/mL ABG pCO2 (35.0-45.0) mmHg ABG pO2 (80.0-100.0) mmHg ABG HCO3 (22.0-26.0) mEq/l ABG O2 Saturation (95.0-100.0) % ABG O2 Content (16.0-22.0) %vol Sodium (137-145) mmol/L Carbon Dioxide (22-30) mmol/L Anion Gap (4-12) mmol/L Glucose (65-110) mg/dL POC Capillary Glucose 169 H (65-105) mg/dl Hemoglobin A1c (<5.7) % Lactic Acid 4.1 H* (0.7-2.0) mmol/L Calcium (8.4-10.2) mg/dL AST (17-59) U/L ALT (6-50) U/L Total Creatine Kinase (55-170) U/L Troponin I (0.000-0.034) ng/mL U Benzodiazepines Scrn Positive A (Negative) 11/10/24 11/10/24 11/10/24 Range/Units 01:04 01:56 02:59 WBC (4.5-10.0) K/mm3 RBC (4.6-6.20) M/mm3 Hgb (14.0-18.0) g/dL Hct (42.0-52.0) % Plt Count (150-375) k/mm3 Immature Gran % (Auto) (0-0.5) % Neut % (Auto) (45.5-73.1) % Lymph % (Auto) (18.3-44.2) % Lymph # (Auto) (0.9-3.2) K/mm3 [place] # (Auto) (0.1-0.6) K/mm3 Abs Immat Gran (auto) (0.00-0.031) K/mm3 Absolute Neuts (auto) (1.3-6.7) K/mm3 PT (11.1-14.7) Seconds INR APTT (22.3-36.8) Seconds Fibrinogen (215-510) mg/dl D-Dimer (<0.48) ug/mL ABG pCO2 (35.0-45.0) mmHg ABG pO2 (80.0-100.0) mmHg ABG HCO3 (22.0-26.0) mEq/l ABG O2 Saturation (95.0-100.0) % ABG O2 Content (16.0-22.0) %vol Sodium (137-145) mmol/L Carbon Dioxide (22-30) mmol/L Anion Gap (4-12) mmol/L Glucose (65-110) mg/dL POC Capillary Glucose 163 H 150 H 151 H (65-105) mg/dl Hemoglobin A1c (<5.7) % Lactic Acid (0.7-2.0) mmol/L Calcium (8.4-10.2) mg/dL AST (17-59) U/L ALT (6-50) U/L Total Creatine Kinase (55-170) U/L Troponin I (0.000-0.034) ng/mL U Benzodiazepines Scrn (Negative) 11/10/24 11/10/2411/10/25 Range/Units 04:09 04:31 05:09 WBC 12.5 H (4.5-10.0) K/mm3 RBC 3.48 L (4.6-6.20) M/mm3 Hgb 11.5 L (14.0-18.0) g/dL Hct 33.8 L (42.0-52.0) % Plt Count (150-375) k/mm3 Immature Gran % (Auto) 0.6 H (0-0.5) % Neut % (Auto) 88.8 H (45.5-73.1) % Lymph % (Auto) 4.6 L (18.3-44.2) % Lymph # (Auto) 0.57 L (0.9-3.2) K/mm3 [place] # (Auto) 0.7 H (0.1-0.6) K/mm3 Abs Immat Gran (auto) 0.07 H (0.00-0.031) K/mm3 Absolute Neuts (auto) 11.1 H (1.3-6.7) K/mm3 PT 16.2 H D (11.1-14.7) Seconds INR APTT (22.3-36.8) Seconds Fibrinogen (215-510) mg/dl D-Dimer (<0.48) ug/mL ABG pCO2 (35.0-45.0) mmHg ABG pO2 (80.0-100.0) mmHg ABG HCO3 (22.0-26.0) mEq/l ABG O2 Saturation (95.0-100.0) % ABG O2 Content (16.0-22.0) %vol Sodium (137-145) mmol/L Carbon Dioxide (22-30) mmol/L Anion Gap (4-12) mmol/L Glucose 159 H (65-110) mg/dL POC Capillary Glucose 154 H 140 H (65-105) mg/dl Hemoglobin A1c (<5.7) % Lactic Acid 2.7 H (0.7-2.0) mmol/L Calcium 8.2 L (8.4-10.2) mg/dL AST 109 H (17-59) U/L ALT 58 H (6-50) U/L Total Creatine Kinase 830 H (55-170) U/L Troponin I (0.000-0.034) ng/mL U Benzodiazepines Scrn (Negative) 11/10/24 11/10/24 11/10/24 Range/Units 06:06 07:56 08:28 WBC (4.5-10.0) K/mm3 RBC (4.6-6.20) M/mm3 Hgb (14.0-18.0) g/dL Hct (42.0-52.0) % Plt Count (150-375) k/mm3 Immature Gran % (Auto) (0-0.5) % Neut % (Auto) (45.5-73.1) % Lymph % (Auto) (18.3-44.2) % Lymph # (Auto) (0.9-3.2) K/mm3 [place] # (Auto) (0.1-0.6) K/mm3 Abs Immat Gran (auto) (0.00-0.031) K/mm3 Absolute Neuts (auto) (1.3-6.7) K/mm3 PT (11.1-14.7) Seconds INR APTT (22.3-36.8) Seconds Fibrinogen (215-510) mg/dl D-Dimer (<0.48) ug/mL ABG pCO2 34.9 L (35.0-45.0) mmHg ABG pO2 65.6 L (80.0-100.0) mmHg ABG HCO3 (22.0-26.0) mEq/l ABG O2 Saturation 93.7 L (95.0-100.0) % ABG O2 Content 15.6 L (16.0-22.0) %vol Sodium (137-145) mmol/L Carbon Dioxide (22-30) mmol/L Anion Gap (4-12) mmol/L Glucose (65-110) mg/dL POC Capillary Glucose 133 H 124 H (65-105) mg/dl Hemoglobin A1c (<5.7) % Lactic Acid (0.7-2.0) mmol/L Calcium (8.4-10.2) mg/dL AST (17-59) U/L ALT (6-50) U/L Total Creatine Kinase (55-170) U/L Troponin I (0.000-0.034) ng/mL U Benzodiazepines Scrn (Negative) 11/10/24 11/10/24 11/10/24 Range/Units 08:58 10:09 11:00 WBC (4.5-10.0) K/mm3 RBC (4.6-6.20) M/mm3 Hgb (14.0-18.0) g/dL Hct (42.0-52.0) % Plt Count (150-375) k/mm3 Immature Gran % (Auto) (0-0.5) % Neut % (Auto) (45.5-73.1) % Lymph % (Auto) (18.3-44.2) % Lymph # (Auto) (0.9-3.2) K/mm3 [place] # (Auto) (0.1-0.6) K/mm3 Abs Immat Gran (auto) (0.00-0.031) K/mm3 Absolute Neuts (auto) (1.3-6.7) K/mm3 PT (11.1-14.7) Seconds INR APTT (22.3-36.8) Seconds Fibrinogen (215-510) mg/dl D-Dimer (<0.48) ug/mL ABG pCO2 (35.0-45.0) mmHg ABG pO2 (80.0-100.0) mmHg ABG HCO3 (22.0-26.0) mEq/l ABG O2 Saturation (95.0-100.0) % ABG O2 Content (16.0-22.0) %vol Sodium (137-145) mmol/L Carbon Dioxide (22-30) mmol/L Anion Gap (4-12) mmol/L Glucose (65-110) mg/dL POC Capillary Glucose 128 H 118 H 106 H (65-105) mg/dl Hemoglobin A1c (<5.7) % Lactic Acid (0.7-2.0) mmol/L Calcium (8.4-10.2) mg/dL AST (17-59) U/L ALT (6-50) U/L Total Creatine Kinase (55-170) U/L Troponin I (0.000-0.034) ng/mL U Benzodiazepines Scrn (Negative) 11/10/24 11/10/24 11/10/24 Range/Units 11:53 12:52 13:55 WBC (4.5-10.0) K/mm3 RBC (4.6-6.20) M/mm3 Hgb (14.0-18.0) g/dL Hct (42.0-52.0) % Plt Count (150-375) k/mm3 Immature Gran % (Auto) (0-0.5) % Neut % (Auto) (45.5-73.1) % Lymph % (Auto) (18.3-44.2) % Lymph # (Auto) (0.9-3.2) K/mm3 [place] # (Auto) (0.1-0.6) K/mm3 Abs Immat Gran (auto) (0.00-0.031) K/mm3 Absolute Neuts (auto) (1.3-6.7) K/mm3 PT (11.1-14.7) Seconds INR APTT (22.3-36.8) Seconds Fibrinogen (215-510) mg/dl D-Dimer (<0.48) ug/mL ABG pCO2 (35.0-45.0) mmHg ABG pO2 (80.0-100.0) mmHg ABG HCO3 (22.0-26.0) mEq/l ABG O2 Saturation (95.0-100.0) % ABG O2 Content (16.0-22.0) %vol Sodium (137-145) mmol/L Carbon Dioxide (22-30) mmol/L Anion Gap (4-12) mmol/L Glucose 126 H (65-110) mg/dL POC Capillary Glucose 108 H 137 H (65-105) mg/dl Hemoglobin A1c (<5.7) % Lactic Acid (0.7-2.0) mmol/L Calcium 8.1 L (8.4-10.2) mg/dL AST (17-59) U/L ALT (6-50) U/L Total Creatine Kinase 790 H (55-170) U/L Troponin I (0.000-0.034) ng/mL U Benzodiazepines Scrn (Negative) 11/10/24 Range/Units 14:15 WBC (4.5-10.0) K/mm3 RBC (4.6-6.20) M/mm3 Hgb (14.0-18.0) g/dL Hct (42.0-52.0) % Plt Count (150-375) k/mm3 Immature Gran % (Auto) (0-0.5) % Neut % (Auto) (45.5-73.1) % Lymph % (Auto) (18.3-44.2) % Lymph # (Auto) (0.9-3.2) K/mm3 [place] # (Auto) (0.1-0.6) K/mm3 Abs Immat Gran (auto) (0.00-0.031) K/mm3 Absolute Neuts (auto) (1.3-6.7) K/mm3 PT (11.1-14.7) Seconds INR APTT (22.3-36.8) Seconds Fibrinogen (215-510) mg/dl D-Dimer (<0.48) ug/mL ABG pCO2 (35.0-45.0) mmHg ABG pO2 (80.0-100.0) mmHg ABG HCO3 (22.0-26.0) mEq/l ABG O2 Saturation (95.0-100.0) % ABG O2 Content (16.0-22.0) %vol Sodium (137-145) mmol/L Carbon Dioxide (22-30) mmol/L Anion Gap (4-12) mmol/L Glucose (65-110) mg/dL POC Capillary Glucose 127 H (65-105) mg/dl Hemoglobin A1c (<5.7) % Lactic Acid (0.7-2.0) mmol/L Calcium (8.4-10.2) mg/dL AST (17-59) U/L ALT (6-50) U/L Total Creatine Kinase (55-170) U/L Troponin I (0.000-0.034) ng/mL U Benzodiazepines Scrn (Negative) Diabetes panel 11/09/24 11/10/24 11/10/24 Range/Units 18:25 04:31 11:53 Sodium 136 L 138 137 (137-145) mmol/L Potassium 4.1 4.4 3.9 (3.4-5.0) mmol/L Chloride 104 105 103 (98-107) mmol/L Carbon Dioxide 19 L 24 27 (22-30) mmol/L BUN 15 17 19 (9-20) mg/dL Creatinine 1.19 1.15 1.12 (0.7-1.3) mg/dL Glucose 144 H 159 H 126 H (65-110) mg/dL Hemoglobin A1c 6.7 H (<5.7) % Calcium 8.3 L 8.2 L 8.1 L (8.4-10.2) mg/dL AST 96 H 109 H (17-59) U/L ALT 68 H 58 H (6-50) U/L Alkaline Phosphatase 51 45 (38-126) U/L Total Protein 7.0 7.0 (6.3-8.2) g/dL Albumin 3.8 3.7 (3.5-5.1) g/dL Triglycerides 88 (<150) mg/dL Thyroid panel 11/09/24 Range/Units 18: TSH 1.800 (0.465-4.680) uIU/mL Calcium panel 11/09/24 11/10/24 11/10/24 Range/Units : 04:31 11:53 Calcium 8.3 L 8.2 L 8.1 L (8.4-10.2) mg/dL Phosphorus 4.0 3.5 (2.5-4.5) mg/dL Albumin 3.8 3.7 (3.5-5.1) g/dL Pituitary panel 11/09/24 11/10/24 11/10/24 Range/Units : 04:31 11:53 Sodium 136 L 138 137 (137-145) mmol/L Potassium 4.1 4.4 3.9 (3.4-5.0) mmol/L Chloride 104 105 103 (98-107) mmol/L Carbon Dioxide 19 L 24 27 (22-30) mmol/L BUN 15 17 19 (9-20) mg/dL Creatinine 1.19 1.15 1.12 (0.7-1.3) mg/dL Glucose 144 H 159 H 126 H (65-110) mg/dL Calcium 8.3 L 8.2 L 8.1 L (8.4-10.2) mg/dL TSH 1.800 (0.465-4.680) uIU/mL Adrenal panel 11/09/24 11/10/24 11/10/24 Range/Units 18: 04:31 11:53 Sodium 136 L 138 137 (137-145) mmol/L Potassium 4.1 4.4 3.9 (3.4-5.0) mmol/L Chloride 104 105 103 (98-107) mmol/L Carbon Dioxide 19 L 24 27 (22-30) mmol/L BUN 15 17 19 (9-20) mg/dL Creatinine 1.19 1.15 1.12 (0.7-1.3) mg/dL Glucose 144 H 159 H 126 H (65-110) mg/dL Calcium 8.3 L 8.2 L 8.1 L (8.4-10.2) mg/dL Total Bilirubin 1.1 1.1 (0.2-1.3) mg/dL AST 96 H 109 H (17-59) U/L ALT 68 H 58 H (6-50) U/L Alkaline Phosphatase 51 45 (38-126) U/L Total Protein 7.0 7.0 (6.3-8.2) g/dL Albumin 3.8 3.7 (3.5-5.1) g/dL All other labs normal. Imaging Chest x-ray: image reviewed
[2024-11-10] MEDS: cefTRIAXone 2 GM/NS 100 ML 2 GM/100 ML BAG IVPB (15:31)
[2024-11-10] MEDS: AZITHROMYCIN 500 MG/NS 250 ML 500 MG/250 ML BAG 250 MG IVPB (15:31)
--- NOTE | 2024-11-10 15:43 | ECG_ITS ---
Test Date: 2024-11-10 15:59:49 Measurements Intervals [place] Rate: 94 P: 42 TN: 159 QRS: -27 QRSD: 86 T: -29 QT: 405 QTc: 507 Interpretive Statements SINUS RHYTHM PERSISTENT ST ELEVATIONS INFEROLATERAL LEADS Compared to ECG 11/09/2024 23:52:47 No significant changes Electronically Signed On 11-10-2024 17:43:48 CDT by Landen Mercer M.D.
[2024-11-10] MEDS: PROPOFOL IV EMULSION 100 ML 2.76 MG IV CONT (15:45)
[2024-11-10] MEDS: VANCOMYCIN 1,250 MG/NS 250 ML 1,250 MG/250 ML BAG 166.67 MG IVPB (16:37)
[2024-11-10 16:41] LABS: Glucose Point of Care 126 mg/dl (65-105)
--- NOTE | 2024-11-10 16:45 | PC.NURSE ---
RN called Dr. Rodriguez to update on development of Right pneumothorax. 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 Cement [employer]er Driver aware of new finding.
[2024-11-10 17:07] LABS: MRSA (PCR) NOT DETECTED (NOT DETECTE)
[2024-11-10] MEDS: NOREPINEPHRINE 8 MG/D5W 250 ML 8 MG/250 ML BAG 9.38 MG IV CONT (17:16)
[2024-11-10] MEDS: VANCOMYCIN 1,000 MG/NS 250 ML 1,000 MG/250 ML BAG 250 MG IVPB (18:27)
[2024-11-10 18:40] LABS: Glucose Point of Care 145 mg/dl (65-105)
[2024-11-10 18:40] LABS: Glucose Point of Care 137 mg/dl (65-105)
[2024-11-10 18:42] LABS: Hematocrit 31.2 % (42.0-52.0); Hemoglobin 10.3 g/dL (14.0-18.0); Mean Corpuscular Hemoglobin 32.7 pg (26-34); Mean Platelet Volume 9.3 fl (7.4-10.4); Platelet Count Result 186 k/mm3 (150-375); Red Blood Count 3.15 M/mm3 (4.6-6.20); Red Cell Distribution Width 12.6 % (11.5-14.5); White Blood Count 16.3 K/mm3 (4.5-10.0)
[2024-11-10] MEDS: FENTANYL 2,500MCG/NS250ML(*CRX 2,500 MCG/250 ML BAG 15 MCG IV CONT (18:47)
[2024-11-10 18:53] LABS: Creatine Kinase 735 U/L (55-170); Lactic Acid Reflex 2.8 mmol/L (0.7-2.0); Triglycerides 120 mg/dL (<150)
[2024-11-10 19:05] LABS: INR 1.2; Prothrombin Time 15.2 Seconds (11.1-14.7)
[2024-11-10 19:06] LABS: Partial Thromboplastin Time 27.3 Seconds (22.3-36.8)
[2024-11-10 19:49] LABS: Glucose Point of Care 142 mg/dl (65-105)
[2024-11-10 20:40] LABS: Reflex Lactic Acid Yes or No Add Lactic
[2024-11-10] MEDS: CENTRAL LINE FLUSH 20 ML IV PUSH (20:46)
[2024-11-10 21:05] LABS: Anion Gap 7 mmol/L (4-12); Blood Urea Nitrogen 22 mg/dL (9-20); Calcium 7.7 mg/dL (8.4-10.2); Carbon Dioxide 27 mmol/L (22-30); Chloride 105 mmol/L (98-107); Estimated CRCL calculation 68 ml/min; Estimated Glomerular Filt Rate > 60; Glucose 155 mg/dL (65-110); Phosphorus 3.5 mg/dL (2.5-4.5); Potassium 4.2 mmol/L (3.4-5.0); Sodium 139 mmol/L (137-145)
--- NOTE | 2024-11-10 21:07 | PC.NURSE ---
[facility] called for patient update. Made aware of chest tube, urine output, rewarming time to start at midnight, and that patient is still a full code.
--- NOTE | 2024-11-10 21:26 | PC.NURSE ---
[facility] called for update. Aware of chest tube and last vitals. No bed at this time.
[2024-11-10] MEDS: MIDAZOLAM 100MG/NS 100ML(*CRX) 100 MG/100 ML BAG IV CONT (21:52)
[2024-11-10 22:53] LABS: Glucose Point of Care 152 mg/dl (65-105)
[2024-11-10 22:53] LABS: Glucose Point of Care 149 mg/dl (65-105)
[2024-11-10 22:53] LABS: Glucose Point of Care 154 mg/dl (65-105)
[2024-11-10 23:12] LABS: Lactic Acid Reflex 2.3 mmol/L (0.7-2.0)
[2024-11-10 23:36] LABS: Creatine Kinase 678 U/L (55-170)
[2024-11-11] VITALS (95 sets, daily range): BP systolic 82–125; BP diastolic 57–82; PULSE 70–114; RESP 14–94; TEMP 35.4–37.8; O2SAT 22–100
[2024-11-11 00:44] LABS: Glucose Point of Care 156 mg/dl (65-105)
[2024-11-11 00:44] LABS: Glucose Point of Care 143 mg/dl (65-105)
[2024-11-11] MEDS: IPRATROPIUM 0.5 MG/ALBUTEROL SULFATE 2.5 MG AMPUL.NEB 3 ML INHALATION ×3 (02:33→13:59)
[2024-11-11 03:41] LABS: Glucose Point of Care 133 mg/dl (65-105)
[2024-11-11 03:41] LABS: Glucose Point of Care 134 mg/dl (65-105)
[2024-11-11] MEDS: CENTRAL LINE FLUSH 10 ML IV PUSH ×2 (05:13→13:52)
[2024-11-11 05:24] LABS: Alveolar/Arterial O2 Gradient 319.1 mmHg; Base Excess ABG 1.4 mEq/l (+/-2.0); Fractional Inspired Oxygen 60 %; HCO3 ABG 25.9 mEq/l (22.0-26.0); Methemoglobin ABG 0.3 %THb (0-1.5); Oxygen Content ABG 14.6 %vol (16.0-22.0); Oxygen Saturation ABG 92.9 % (95.0-100.0); Oxyhemoglobin 91.8 % THb (90.0-100.0); PCO2 ABG 40.6 mmHg (35.0-45.0); PO2 FiO2 Ratio Arterial Blood 1.07 %; Reduced Hemoglobin 7.9 %THb (0-5.0); Total Hemoglobin 11.3 g/dL (12.0-18.0); pH ABG 7.423 (7.350-7.450)
[2024-11-11 05:31] LABS: Basophils Absolute Auto 0.1 K/mm3 (0.0-0.1); Basophils Percent Auto 0.5 % (0.2-1.2); Eosinophils Percent Auto 0.4 % (0-4.4); Hematocrit 30.5 % (42.0-52.0); Hemoglobin 10.1 g/dL (14.0-18.0); Immature Granulocyte Absolute 0.02 K/mm3 (0.00-0.031); Immature Granulocyte Percent A 0.2 % (0-0.5); Lymphocytes Absolute Auto 0.58 K/mm3 (0.9-3.2); Lymphocytes Percent Auto 5.9 % (18.3-44.2); Mean Corpuscular HGB Conc 33.1 g/dl (32-36); Mean Corpuscular Volume 99.7 fl (80-100); Mean Platelet Volume 9.4 fl (7.4-10.4); Monocytes Absolute Auto 0.8 K/mm3 (0.1-0.6); Monocytes Percent Auto 8.5 % (2.6-8.5); Neutrophils Absolute Auto 8.3 K/mm3 (1.3-6.7); Neutrophils Percent Auto 84.5 % (45.5-73.1); Platelet Count Result 154 k/mm3 (150-375); Red Blood Count 3.06 M/mm3 (4.6-6.20); Red Cell Distribution Width 12.4 % (11.5-14.5); White Blood Count 9.8 K/mm3 (4.5-10.0)
[2024-11-11 05:34] LABS: Device VENTILATOR; Modified Allen's Test Pass; Site Drawn LEFT RADIAL
[2024-11-11 05:35] LABS: Arterial Blood Gas PEEP 5 cmH2O; Arterial Blood Gas Tidal Volume 480 ml; Arterial Blood Gas Vent Mode CMV; Arterial Blood Gas Ventilator rate 22 /MIN
[2024-11-11 05:38] LABS: INR 1.1; Prothrombin Time 14.6 Seconds (11.1-14.7)
[2024-11-11 05:39] LABS: Partial Thromboplastin Time 29.1 Seconds (22.3-36.8)
[2024-11-11 05:45] LABS: Creatine Kinase 684 U/L (55-170)
[2024-11-11 05:52] LABS: Alanine Aminotransferase 51 U/L (6-50); Albumin Level 3.4 g/dL (3.5-5.1); Alkaline Phosphatase 43 U/L (38-126); Anion Gap 8 mmol/L (4-12); Aspartate Amino Transferase 86 U/L (17-59); Bilirubin,Total 0.7 mg/dL (0.2-1.3); Blood Urea Nitrogen 21 mg/dL (9-20); Calcium 7.8 mg/dL (8.4-10.2); Carbon Dioxide 27 mmol/L (22-30); Chloride 104 mmol/L (98-107); Estimated CRCL calculation 67 ml/min; Estimated Glomerular Filt Rate > 60; Glucose 128 mg/dL (65-110); Phosphorus 2.8 mg/dL (2.5-4.5); Potassium 3.7 mmol/L (3.4-5.0); Sodium 139 mmol/L (137-145)
[2024-11-11] MEDS: ATORVASTATIN 40 MG TABLET 80 MG PO (08:27)
[2024-11-11] MEDS: ASPIRIN 81 MG ENTERIC TABLET PO (08:27)
[2024-11-11] MEDS: PANTOPRAZOLE SODIUM IV 40 MG VIAL IV PUSH (08:27)
[2024-11-11] MEDS: MINERAL OIL/WHITE PETROLATUM OINTMENT 1 APPLIC EACH EYE ×2 (08:27)
[2024-11-11] MEDS: TICAGRELOR 90 MG TABLET PO (08:27)
[2024-11-11] MEDS: levETIRAcetam 500MG/NACL 100ML 500 MG/100 ML BAG 400 MG IVPB (08:27)
--- NOTE | 2024-11-11 09:20 | WPDINTPN ---
Progress Note: A&P Assessment and Plan (1) Cardiac arrest with successful resuscitation: Code(s): I46.9 - Cardiac arrest, cause unspecified Status: Acute Assessment and Plan: Cardiac arrest most likely related to ST-elevation [place] -patient had agonal breathing, EMS was called, upon arrival of the EMS patient was pulseless, CPR was started, defibrillated x1, ROSC was achieved in approximately 10 minutes -patient was intubated in the field but was unable to be bagged, ETT was removed and was found to have a piece of toast in the ETT, he was deeply suction and upon arrival to the ER he was re-intubated. -currently on target temperature management protocol at 36?C, since patient was in VFib arrest. -patient was cooled at just after 12:00 a.m. on 11/10/2024. Will follow the protocol, maintained cooling for 24 hours and will be removed passively after that. -patient has been rewarmed, -have asked the bedside RN wean sedation to off, will allow the patient to wake up in evaluate his neurological status.. 11/09: CT scan of the brain showed increased attenuation within the venous sinuses as well as a visualized intracranial vascular structure initially suggesting increased intravascular density rather than acute intracranial hemorrhage. Given patient's history of recent cardiac catheterization (within the last 1-2 hours) this likely represents intravenous contrast. Global intracranial parenchyma him edema was noted, - Transfer was initiated to [place] and he was accepted to CVICU per Dr. Kumar however no beds are available at this time. Recommends continued management as above. (2) ST elevation (STEMI) myocardial infarction: Code(s): I21.3 - ST elevation (STEMI) myocardial infarction of unspecified site Status: Acute Assessment and Plan: Patient presented with VFib arrest, EKG showed ST-elevation [place], patient was taken to the cardiac cath lab manager with PTCA/PCI to mid RCA with NELLA x1 -post cardiac catheterization he was started on Integrilin infusion but patient was in DIC, ICU team discussed with horticultural manager was okay to stop the Integrilin infusion. -continue aspirin, ticagrelor, atorvastatin -cardiology following the patient 11/10/2024: Echocardiogram Summary 1. Technically difficult study with limited views, even with Definity. 2. Left ventricular chamber dimension is normal. 3. There is mildly increased left ventricular wall thickness. 4. Left ventricular systolic function is moderately reduced, estimated at 35-40%. 5. The inferior wall appears to be hypokinetic. 6. The left ventricular diastolic function is grade I diastolic dysfunction. 7. Right ventricular systolic function is normal. 8. No significant valvular disease appreciated, however, technically difficult study. (3) Acute respiratory failure: Code(s): J96.00 - Acute respiratory failure, unspecified whether with hypoxia or hypercapnia Status: Acute Assessment and Plan: Acute respiratory failure likely related to cardiac arrest -currently on cooling protocol -11/09: Intubated -currently on CMV mode of ventilation, peep of peep of 5, 60% FiO2 -continue bronchodilators -DuoNeb -sedated with fentanyl and Versed infusion, maintain RASS of 0 to -2, have asked the bedside RN to start weaning the sedation to off (4) Disseminated intravascular coagulation: Code(s): D65 - Disseminated intravascular coagulation [defibrination syndrome] Status: Acute Assessment and Plan: Status cardiac arrest, cardiac catheterization, Integrilin infusion, patient was in DIC, was given 2 units of FFP the, vitamin K, 1 unit of cryoprecipitate (for INR of 9.0, PTT of 73.4, APTT was> 200, fibrinogen level was 197 and D-dimer> 20.0 -this morning coags look much improved, INR of 1.1, PTT 29 (5) Hypertension: Qualifiers: Hypertension type: unspecified Qualified Code(s): I10 - Essential (primary) hypertension Code(s): I10 - Essential (primary) hypertension Status: Acute Assessment and Plan: Patient history of hypertension, currently intubated in positive-pressure ventilation and sedation medications blood pressures have been stable, not requiring any pressors at this time -will hold home of all home anti hypertensive medication (6) Hyperlipidemia: Qualifiers: Hyperlipidemia type: unspecified Qualified Code(s): E78.5 - Hyperlipidemia, unspecified Code(s): E78.5 - Hyperlipidemia, unspecified Status: Acute Assessment and Plan: Continue atorvastatin (7) Bilateral pneumothoraces: Code(s): J93.9 - Pneumothorax, unspecified Status: Acute Assessment and Plan: 11/10: At around 1:30 p.m., was called to see the patient in the room as he was getting restless, tachypneic, tachycardic. Ventilator was alarming high peak pressures -on lung exam no air entry 0 breath sounds were auscultated, patient central dropped oxygen saturation in this 80s and then 70s. Started bagging patient, bagging was very difficult. During all dex patient did drop his O2 sats in the 40s, heart rate in the 50s, was given amp of epinephrine and an amp of bicarb. I decided to exchange the ETT which was size 7 to a larger size tube. -utilizing the glide scope, removed the ETT which had a very large mucus plug at the end of the ETT -successful re-intubation with a size 8 ET tube using the glide scope -once ETT was exchange, bagging was much easy -post intubation auscultation did not reveal left-sided breath sounds, - stat chest x-ray chest x-ray showed large left pneumothorax had interval development of opacification in the right joellen thorax which may reflect atelectasis edema -11/10: Status post left-sided chest tube placement 11/11: Right-sided pneumothorax, have asked surgery to place a chest tube Plan DVT prophylaxis: SCDs Stress ulcer prophylaxis: Protonix Nutrition: Will start tubes Code Status: Full code Critical Care Time Spent: 35 minutes Discussed with patient's and 2 daughters at bedside and updated them with patient's condition and plan of care. I did explain to them that he is now rewarmed, will start weaning him off sedation to wake him up. I also explained to them that he had a large mucus plug at the end of his ETT yesterday which caused his tension pneumothoraces bilaterally, left-sided chest tube is in place, will have to put a right-sided chest tube today. I answered all their questions Due to a high probability of clinically significant, life threatening deterioration, the patient required my highest level of preparedness to intervene emergently and I personally spent this critical care time directly and personally managing the patient. This critical care time included obtaining a history; examining the patient; pulse oximetry; ordering and review of studies; arranging urgent treatment with development of a management plan; evaluation of patient's response to treatment; frequent reassessment; and discussions with other providers. It was exclusive of separately billable procedures and treating other patients and teaching time. Please see Assessment and Plan section and the rest of the note for further information on patient assessment and treatment This dictation may have been done utilizing a voice recognition system. Attempts have been made to correct errors. However, there may be uncorrected grammatical, spelling, and recognitions errors present. Subjective Date/time seen: 11/11/24 09:20 Interval history: Reason for consult: Cardiac arrest, acute respiratory failure, STEMI status post NELLA x1 to mid RCA on 11/09/202411/10: Left-sided chest tube placement due to large left tension pneumothorax secondary to its large mucus plugging at the end of the ETT 11/10: ETT replaced 11/12/2023: Patient seen and examined this morning in the ICU, remains intubated on CMV mode peep 5, 60% FiO2. Sedated with fentanyl and Versed infusion, off propofol. Patient is also off norepinephrine. WBC count has normalized, LFTs trending down, CK levels trending down. Chest x-ray showed right pneumothorax. T-max of 100.1?, low urine output, hemodynamically stable. Review of Systems Review of Systems: ROS unobtainable: Yes unobtainable due to endotracheal tube, unobtainable due to medical condition and unobtainable due to mental status Exam Narrative: General: Intubated, sedated, in no acute distress HEENT:? Pupils equal and reactive, sclerae is clear, ETT in place Neck:? Supple Respiratory:? Coarse breath sounds bilaterally, decreased at bases, no wheezing, adequate air entry, left-sided chest tube with no air leak Cardiac:? S1-S2 normal, r sinus tachycardia Abdomen:? Soft, nontender, nondistended, hypoactive bowel sounds Extremities:? No edema, palpable pedal pulses, Neuro:? Patient is intubated, sedated, does not open his eyes or follow simple commands Skin:? No skin lesions noted Psych:? Unable to assess at this time Objective Data Vital Signs Vital Signs: Vital Signs - 24 hr 11/10/24 10:00 11/10/24 10:11/10/24 10:00 Temperature 99.8 F H 99.9 F H Pulse Rate 79 80 80 Respiratory Rate 20 22 H Blood Pressure 105/71 105/71 Pulse Oximetry 95 95 Oxygen Delivery Fraction of Inspired Oxygen 11/10/24 10:11/10/24 10:00 11/10/24 11:00 Temperature 100.2 F H Pulse Rate 80 80 80 Respiratory Rate 22 H 22 H 22 H Blood Pressure 109/73 Pulse Oximetry 94 Oxygen Delivery Fraction of Inspired Oxygen 11/10/24 11:00 11/10/24 11:00 11/10/24 11:30 Temperature 100.2 F H Pulse Rate 80 80 83 Respiratory Rate 22 H 22 H 22 H Blood Pressure 109/73 Pulse Oximetry 94 Oxygen Delivery Fraction of Inspired Oxygen 11/10/24 11:31 11/10/24 12:00 11/10/24 12:00 Temperature Pulse Rate 83 Respiratory Rate Blood Pressure Pulse Oximetry 95 96 Oxygen Delivery Mechanical Ventilation Mechanical Ventilation Fraction of Inspired Oxygen 45 45 45 11/10/24 12:00 11/10/24 12:00 11/10/24 12:00 Temperature 100.1 F H Pulse Rate 83 83 83 Respiratory Rate 22 H 22 H 22 H Blood Pressure 98/69 L Pulse Oximetry 92 Oxygen Delivery Fraction of Inspired Oxygen 11/10/24 12:00 11/10/24 12:30 11/10/24 13:00 Temperature 100.9 F H Pulse Rate 84 88 98 Respiratory Rate 22 H 15 Blood Pressure 124/75 Pulse Oximetry 95 Oxygen Delivery Fraction of Inspired Oxygen 11/10/24 13:00 11/10/24 13:00 11/10/24 13:00 Temperature 99 F Pulse Rate 98 98 98 Respiratory Rate 22 H 22 H 22 H Blood Pressure 124/75 Pulse Oximetry 95 Oxygen Delivery Fraction of Inspired Oxygen 11/10/24 13:30 11/10/24 13:43 11/10/24 14:00 Temperature 98.6 F Pulse Rate 143 H 120 H 133 H Respiratory Rate 22 H 20 Blood Pressure 106/76 Pulse Oximetry 86 L 89 L Oxygen Delivery Mechanical Ventilation Fraction of Inspired Oxygen 100 11/10/24 14:00 11/10/24 14:00 11/10/24 14:00 Temperature 98.6 F Pulse Rate 133 H 133 H 133 H Respiratory Rate 22 H 22 H Blood Pressure 106/76 Pulse Oximetry 88 L Oxygen Delivery Fraction of Inspired Oxygen 11/10/24 14:06 11/10/24 14:06 11/10/24 14:22 Temperature Pulse Rate 125 H 125 H 116 H Respiratory Rate 22 H Blood Pressure Pulse Oximetry 88 L 93 Oxygen Delivery Mechanical Ventilation Mechanical Ventilation Fraction of Inspired Oxygen 100 100 11/10/24 14:22 11/10/24 14:48 11/10/24 15:00 Temperature 98.5 F Pulse Rate 116 H 103 H Respiratory Rate 22 H 22 H Blood Pressure 98/77 L Pulse Oximetry 88 L Oxygen Delivery Fraction of Inspired Oxygen 100 11/10/24 15:00 11/10/24 15:00 11/10/24 15:45 Temperature Pulse Rate 103 H 103 H 86 Respiratory Rate 22 H 22 H 22 H Blood Pressure 98/77 L Pulse Oximetry 90 Oxygen Delivery Fraction of Inspired Oxygen 11/10/24 16:00 11/10/24 16:00 11/10/24 16:00 Temperature 97 F L Pulse Rate 102 H 102 H 102 H Respiratory Rate 22 H 22 H 22 H Blood Pressure 95/74 L 95/74 L Pulse Oximetry 100 100 Oxygen Delivery Fraction of Inspired Oxygen 11/10/24 16:00 11/10/24 16:00 11/10/24 16:00 Temperature Pulse Rate 102 H Respiratory Rate 22 H Blood Pressure Pulse Oximetry 100 Oxygen Delivery Mechanical Ventilation Fraction of Inspired Oxygen 100 100 11/10/24 16:00 11/10/24 16:13 11/10/24 17:00 Temperature 96.9 F L Pulse Rate 93 108 H 84 Respiratory Rate 22 H Blood Pressure 91/68 L Pulse Oximetry 100 100 Oxygen Delivery Mechanical Ventilation Fraction of Inspired Oxygen 100 11/10/24 17:00 11/10/24 17:00 11/10/24 17:16 Temperature Pulse Rate 84 84 84 Respiratory Rate 22 H 22 H Blood Pressure 91/68 L 88/70 L Pulse Oximetry 100 Oxygen Delivery Fraction of Inspired Oxygen 11/10/24 17:41 11/10/24 18:00 11/10/24 18:00 Temperature 97.1 F L 97.1 F L Pulse Rate 78 78 Respiratory Rate 22 H 22 H Blood Pressure 103/79 107/74 Pulse Oximetry 99 99 Oxygen Delivery Fraction of Inspired Oxygen 80 11/10/24 18:00 11/10/24 18:00 11/10/24 18:00 Temperature Pulse Rate 78 80 78 Respiratory Rate 22 H 22 H Blood Pressure 107/74 Pulse Oximetry Oxygen Delivery Fraction of Inspired Oxygen 11/10/24 18:00 11/10/24 18:00 11/10/24 18:31 Temperature Pulse Rate 80 71 Respiratory Rate 22 H Blood Pressure Pulse Oximetry Oxygen Delivery Fraction of Inspired Oxygen 70 11/10/24 18:47 11/10/24 18:47 11/10/24 18:48 Temperature Pulse Rate 77 77 76 Respiratory Rate 22 H 22 H Blood Pressure 95/69 L Pulse Oximetry Oxygen Delivery Fraction of Inspired Oxygen 11/10/24 19:00 11/10/24 19:00 11/10/24 19:45 Temperature 96.2 F L 96.1 F L Pulse Rate 68 68 66 Respiratory Rate 22 H 22 H 22 H Blood Pressure 103/74 107/76 Pulse Oximetry 99 98 Oxygen Delivery Fraction of Inspired Oxygen 11/10/24 20:00 11/10/24 20:00 11/10/24 20:00 Temperature Pulse Rate 66 66 66 Respiratory Rate 22 H 22 H Blood Pressure 102/74 Pulse Oximetry Oxygen Delivery Fraction of Inspired Oxygen 11/10/24 20:00 11/10/24 20:00 11/10/24 20:00 Temperature 96.1 F L 96.1 F L Pulse Rate 66 66 66 Respiratory Rate 22 H 22 H 22 H Blood Pressure 102/74 102/74 Pulse Oximetry 99 99 Oxygen Delivery Fraction of Inspired Oxygen 11/10/24 20:00 11/10/24 20:00 11/10/24 20:00 Temperature Pulse Rate 66 67 Respiratory Rate 22 H Blood Pressure Pulse Oximetry 99 Oxygen Delivery Mechanical Ventilation Fraction of Inspired Oxygen 70 70 11/10/24 20:45 11/10/24 21:00 11/10/24 21:12 Temperature 97 F L Pulse Rate 68 71 72 Respiratory Rate 22 H 22 H 22 H Blood Pressure 105/72 Pulse Oximetry 98 Oxygen Delivery Fraction of Inspired Oxygen 11/10/24 21:22 11/10/24 21:30 11/10/24 21:40 Temperature Pulse Rate 72 75 80 Respiratory Rate 22 H 22 H Blood Pressure Pulse Oximetry 98 Oxygen Delivery Mechanical Ventilation Fraction of Inspired Oxygen 70 11/10/24 21:52 11/10/24 22:00 11/10/24 22:00 Temperature Pulse Rate 79 80 80 Respiratory Rate 80 H 22 H 22 H Blood Pressure Pulse Oximetry Oxygen Delivery Fraction of Inspired Oxygen 11/10/24 22:00 11/10/24 22:00 11/10/24 22:00 Temperature 97.2 F L Pulse Rate 80 80 80 Respiratory Rate 22 H 22 H Blood Pressure 98/66 L 98/66 L Pulse Oximetry 97 Oxygen Delivery Fraction of Inspired Oxygen 11/10/24 22:00 11/10/24 22:45 11/10/24 22:50 Temperature Pulse Rate 80 72 73 Respiratory Rate 22 H 22 H Blood Pressure 112/75 Pulse Oximetry 98 Oxygen Delivery Fraction of Inspired Oxygen 11/10/24 22:55 11/10/24 23:00 11/10/24 23:00 Temperature 96 F L Pulse Rate 72 72 73 Respiratory Rate 22 H 22 H 22 H Blood Pressure 109/75 107/73 107/73 Pulse Oximetry 99 99 99 Oxygen Delivery Fraction of Inspired Oxygen 11/10/24 23:01 11/10/24 23:05 11/10/24 23:10 Temperature Pulse Rate 72 71 69 Respiratory Rate 22 H 22 H 22 H Blood Pressure 106/71 105/73 Pulse Oximetry 99 99 99 Oxygen Delivery Fraction of Inspired Oxygen 11/10/24 23:15 11/10/24 23:16 11/10/24 23:20 Temperature Pulse Rate 68 68 67 Respiratory Rate 22 H 22 H 22 H Blood Pressure 106/75 103/72 Pulse Oximetry 99 99 99 Oxygen Delivery Fraction of Inspired Oxygen 11/10/24 23:22 11/10/24 23:25 11/10/24 23:30 Temperature Pulse Rate 69 68 68 Respiratory Rate 22 H 22 H Blood Pressure 107/74 104/72 Pulse Oximetry 99 100 100 Oxygen Delivery Mechanical Ventilation Fraction of Inspired Oxygen 70 11/10/24 23:31 11/10/24 23:35 11/10/24 23:40 Temperature Pulse Rate 69 68 68 Respiratory Rate 22 H 22 H 22 H Blood Pressure 101/71 101/71 Pulse Oximetry 100 100 100 Oxygen Delivery Fraction of Inspired Oxygen 11/10/24 23:45 11/10/24 23:46 11/10/24 23:50 Temperature Pulse Rate 70 71 71 Respiratory Rate 22 H 22 H 22 H Blood Pressure 109/73 106/78 Pulse Oximetry 100 100 100 Oxygen Delivery Fraction of Inspired Oxygen 11/10/24 23:55 11/11/24 00:00 11/11/24 00:00 Temperature 95.8 F L Pulse Rate 70 73 73 Respiratory Rate 22 H 22 H 22 H Blood Pressure 104/72 87/60 L Pulse Oximetry 100 98 Oxygen Delivery Fraction of Inspired Oxygen 11/11/24 00:00 11/11/24 00:00 11/11/24 00:00 Temperature Pulse Rate 73 73 73 Respiratory Rate 22 H 22 H Blood Pressure 87/60 L Pulse Oximetry Oxygen Delivery Fraction of Inspired Oxygen 11/11/24 00:00 11/11/24 00:00 11/11/24 00:00 Temperature 95.8 F L Pulse Rate 73 73 Respiratory Rate 22 H 22 H Blood Pressure 87/60 L Pulse Oximetry 98 98 Oxygen Delivery Mechanical Ventilation Fraction of Inspired Oxygen 70 70 11/11/24 00:00 11/11/24 00:00 11/11/24 00:01 Temperature Pulse Rate 76 70 71 Respiratory Rate 22 H 20 Blood Pressure 107/71 Pulse Oximetry 100 100 Oxygen Delivery Fraction of Inspired Oxygen 11/11/24 00:06 11/11/24 00:10 11/11/24 00:15 Temperature Pulse Rate 75 73 73 Respiratory Rate 22 H 22 H 22 H Blood Pressure 87/60 L 102/70 100/69 Pulse Oximetry 100 98 97 Oxygen Delivery Fraction of Inspired Oxygen 11/11/24 00:16 11/11/24 00:20 11/11/24 00:25 Temperature Pulse Rate 74 74 75 Respiratory Rate 22 H 22 H 20 Blood Pressure 98/69 L 101/69 Pulse Oximetry 97 97 97 Oxygen Delivery Fraction of Inspired Oxygen 11/11/24 00:30 11/11/24 00:31 11/11/24 00:35 Temperature Pulse Rate 76 75 76 Respiratory Rate 22 H 22 H 20 Blood Pressure 99/69 L 101/70 Pulse Oximetry 97 97 97 Oxygen Delivery Fraction of Inspired Oxygen 11/11/24 00:40 11/11/24 00:40 11/11/24 00:45 Temperature Pulse Rate 77 78 Respiratory Rate 22 H 22 H Blood Pressure 104/72 Pulse Oximetry 99 Oxygen Delivery Fraction of Inspired Oxygen 65 11/11/24 00:45 11/11/24 00:45 11/11/24 00:46 Temperature Pulse Rate 78 79 79 Respiratory Rate 22 H 22 H 22 H Blood Pressure 105/71 Pulse Oximetry 98 97 Oxygen Delivery Fraction of Inspired Oxygen 11/11/24 00:50 11/11/24 00:55 11/11/24 01:00 Temperature 98.0 F Pulse Rate 78 79 87 Respiratory Rate 22 H 22 H 22 H Blood Pressure 106/75 105/70 111/75 Pulse Oximetry 97 98 97 Oxygen Delivery Fraction of Inspired Oxygen 11/11/24 01:00 11/11/24 01:01 11/11/24 01:05 Temperature Pulse Rate 80 80 81 Respiratory Rate 22 H 22 H 22 H Blood Pressure 110/73 108/78 Pulse Oximetry 97 98 97 Oxygen Delivery Fraction of Inspired Oxygen 11/11/24 01:10 11/11/24 01:15 11/11/24 01:16 Temperature Pulse Rate 82 83 82 Respiratory Rate 22 H 22 H 22 H Blood Pressure 112/75 114/78 Pulse Oximetry 97 98 97 Oxygen Delivery Fraction of Inspired Oxygen 11/11/24 01:20 11/11/24 01:25 11/11/24 01:30 Temperature Pulse Rate 83 84 87 Respiratory Rate 22 H 22 H 22 H Blood Pressure 110/74 115/78 Pulse Oximetry 98 98 Oxygen Delivery Fraction of Inspired Oxygen 11/11/24 01:30 11/11/24 01:30 11/11/24 01:31 Temperature Pulse Rate 87 84 85 Respiratory Rate 22 H 22 H Blood Pressure 111/75 111/75 Pulse Oximetry 97 97 Oxygen Delivery Fraction of Inspired Oxygen 11/11/24 01:35 11/11/24 01:40 11/11/24 01:41 Temperature Pulse Rate 88 88 88 Respiratory Rate 22 H 23 H Blood Pressure 110/74 110/74 106/76 Pulse Oximetry 98 97 Oxygen Delivery Fraction of Inspired Oxygen 11/11/24 01:45 11/11/24 01:46 11/11/24 02:00 Temperature Pulse Rate 88 89 89 Respiratory Rate 20 22 H 22 H Blood Pressure 107/70 106/73 Pulse Oximetry 96 96 97 Oxygen Delivery Fraction of Inspired Oxygen 11/11/24 02:00 11/11/24 02:00 11/11/24 02:00 Temperature Pulse Rate 89 89 89 Respiratory Rate 22 H 22 H Blood Pressure 106/73 Pulse Oximetry Oxygen Delivery Fraction of Inspired Oxygen 11/11/24 02:00 11/11/24 02:01 11/11/24 02:10 Temperature 98.9 F Pulse Rate 89 90 89 Respiratory Rate 22 H 22 H 22 H Blood Pressure 106/73 Pulse Oximetry 97 97 Oxygen Delivery Fraction of Inspired Oxygen 11/11/24 02:15 11/11/24 02:15 11/11/24 02:15 Temperature 98.9 F Pulse Rate 89 90 89 Respiratory Rate 22 H 22 H Blood Pressure 102/70 102/70 Pulse Oximetry 97 97 Oxygen Delivery Fraction of Inspired Oxygen 11/11/24 02:16 11/11/24 02:30 11/11/24 02:31 Temperature Pulse Rate 90 90 92 Respiratory Rate 22 H 22 H 22 H Blood Pressure 104/73 Pulse Oximetry 97 97 98 Oxygen Delivery Fraction of Inspired Oxygen 11/11/24 02:34 11/11/24 02:40 11/11/24 02:40 Temperature Pulse Rate 93 94 72 Respiratory Rate 22 H 22 H Blood Pressure Pulse Oximetry 100 Oxygen Delivery Mechanical Ventilation Fraction of Inspired Oxygen 65 11/11/24 02:41 11/11/24 02:45 11/11/24 02:45 Temperature 99.7 F H Pulse Rate 94 96 97 Respiratory Rate 22 H 22 H 22 H Blood Pressure 107/73 Pulse Oximetry 97 Oxygen Delivery Fraction of Inspired Oxygen 11/11/24 02:46 11/11/24 03:00 11/11/24 03:01 Temperature Pulse Rate 98 99 99 Respiratory Rate 21 H 19 19 Blood Pressure 108/70 Pulse Oximetry 97 97 97 Oxygen Delivery Fraction of Inspired Oxygen 11/11/24 03:15 11/11/24 03:24 11/11/24 03:30 Temperature 99.9 F H Pulse Rate 108 H 106 H Respiratory Rate 18 14 Blood Pressure 112/77 Pulse Oximetry 94 92 Oxygen Delivery Fraction of Inspired Oxygen 11/11/24 03:30 11/11/24 03:30 11/11/24 03:30 Temperature Pulse Rate 114 H 114 H 111 H Respiratory Rate 23 H 23 H 94 H Blood Pressure Pulse Oximetry 22 L Oxygen Delivery Mechanical Ventilation Fraction of Inspired Oxygen 60 11/11/24 03:30 11/11/24 03:30 11/11/24 03:31 Temperature Pulse Rate 113 H 111 H Respiratory Rate 22 H 20 Blood Pressure 112/79 Pulse Oximetry 96 97 Oxygen Delivery Fraction of Inspired Oxygen 60 11/11/24 03:45 11/11/24 03:46 11/11/24 04:00 Temperature Pulse Rate 105 H 105 H 104 H Respiratory Rate 15 14 22 H Blood Pressure 108/72 112/70 Pulse Oximetry 90 91 92 Oxygen Delivery Fraction of Inspired Oxygen 11/11/24 04:00 11/11/24 04:00 11/11/24 04:00 Temperature Pulse Rate 104 H 104 H 104 H Respiratory Rate 22 H 22 H Blood Pressure 112/70 Pulse Oximetry Oxygen Delivery Fraction of Inspired Oxygen 11/11/24 04:00 11/11/24 04:00 11/11/24 04:00 Temperature Pulse Rate 104 H 104 H 104 H Respiratory Rate 22 H 16 Blood Pressure 112/70 Pulse Oximetry 92 Oxygen Delivery Fraction of Inspired Oxygen 11/11/24 04:01 11/11/24 04:15 11/11/24 04:16 Temperature Pulse Rate 104 H 103 H 103 H Respiratory Rate 15 17 14 Blood Pressure 115/74 Pulse Oximetry 92 92 93 Oxygen Delivery Fraction of Inspired Oxygen 11/11/24 04:30 11/11/24 04:30 11/11/24 04:31 Temperature Pulse Rate 102 H 105 H 104 H Respiratory Rate 15 15 Blood Pressure 118/70 118/70 Pulse Oximetry 93 92 Oxygen Delivery Fraction of Inspired Oxygen 11/11/24 04:45 11/11/24 04:46 11/11/24 05:00 Temperature Pulse Rate 104 H 103 H 102 H Respiratory Rate 22 H 22 H 23 H Blood Pressure 108/72 103/71 Pulse Oximetry 93 92 92 Oxygen Delivery Fraction of Inspired Oxygen 11/11/24 05:01 11/11/24 05:24 11/11/24 05:27 Temperature 100.1 F H Pulse Rate 102 H 106 H 103 H Respiratory Rate 20 25 H Blood Pressure 103/71 Pulse Oximetry 92 92 93 Oxygen Delivery Mechanical Ventilation Fraction of Inspired Oxygen 60 11/11/24 06:00 11/11/24 06:00 11/11/24 06:00 Temperature 100.1 F H Pulse Rate 101 H 101 H 101 H Respiratory Rate 23 H 23 H Blood Pressure 108/78 Pulse Oximetry 94 Oxygen Delivery Fraction of Inspired Oxygen 11/11/24 06:00 11/11/24 06:00 11/11/24 06:00 Temperature Pulse Rate 101 H 101 H 101 H Respiratory Rate 23 H 23 H Blood Pressure 108/78 Pulse Oximetry Oxygen Delivery Fraction of Inspired Oxygen 11/11/24 06:30 11/11/24 07:00 11/11/24 08:00 Temperature 99.9 F H Pulse Rate 100 100 98 Respiratory Rate 22 H Blood Pressure 115/73 108/72 108/69 Pulse Oximetry 94 Oxygen Delivery Fraction of Inspired Oxygen 11/11/24 08:00 11/11/24 08:00 11/11/24 08:00 Temperature Pulse Rate 98 98 Respiratory Rate 22 H 22 H Blood Pressure Pulse Oximetry Oxygen Delivery Fraction of Inspired Oxygen 60 11/11/24 08:00 11/11/24 08:00 11/11/24 08:00 Temperature Pulse Rate 98 98 Respiratory Rate 22 H Blood Pressure 108/69 Pulse Oximetry 94 Oxygen Delivery Mechanical Ventilation Fraction of Inspired Oxygen 60 11/11/24 09:00 11/11/24 09:00 Temperature Pulse Rate 103 H 103 H Respiratory Rate 22 H 22 H Blood Pressure Pulse Oximetry Oxygen Delivery Fraction of Inspired Oxygen Intake/Output Intake/Output: Intake & Output 11/08/24 11/09/24 11/10/24 11/11/24 23:59 23:59 23:59 23:59 Intake Total 110.2 1653.8 286.3 Output Total 1654 245 Balance 110.2 -0.2 41.3 Meds/Results Medications: Active Medications Generic Name Dose Route Start Last Admin Trade Name Freq PRN Reason Stop Dose Admin Albuterol/Ipratropium 3 ml 11/10/24 14:00 11/11/24 08:53 Ipratropium 0.5 Mg/Albuterol Sulfate 2.5 Mg Ampul.Neb 3 Ml INHALATION 3 ml Q6HRT SAMY Administration Aspirin 81 mg 11/10/24 09:00 11/11/24 08:27 Aspirin 81 Mg Enteric Tablet PO 81 mg QAM SAMY Administration Atorvastatin Calcium 80 mg 11/09/24 17:45 11/11/24 08:27 Atorvastatin 40 Mg Tablet PO 80 mg DAILY SAMY Administration Dextrose 12.5 gm 11/11/24 07:25 Dextrose 50% 25 Gm/50 Ml Syringe IV PUSH PRN PRN Hypoglycemia Protocol Glucagon 1 mg 11/11/24 07:25 Glucagon For Inj 1 Mg Vial IM PRN PRN Hypoglycemia Protocol Glucose 15 gm 11/11/24 07:25 Glucose Oral Gel 15 Gm Of Glucse In 37.5 Gm Tube PO PRN PRN Hypoglycemia Protocol Levetiracetam 500 mg in 100 mls @ 400 mls/hr 11/10/24 09:00 11/11/24 08:42 Keppra Iv IVPB Infused Q12HR SAMY Infusion Fentanyl Citrate 2,500 mcg in 250 mls @ 2.5 mls/hr 11/09/24 22:35 11/11/24 09:00 Fentanyl 2,500 Mcg/Ns 250 Ml IV CONT 25 mcg/hr .Q72H SAMY 2.5 mls/hr Titration Protocol 25 MCG/HR Midazolam HCl 100 mg in 100 mls @ 0 mls/hr 11/09/24 22:35 11/11/24 09:00 Versed 100 Mg/Ns 100 Ml IV CONT 0 mg/hr .Q0M SAMY 0 mls/hr Titration Protocol Ceftriaxone Sodium 2 gm in 100 mls @ 200 mls/hr 11/10/24 15:00 11/10/24 16:01 Rocephin 2 Gm/Ns 100 Ml IVPB Infused Q24H SAMY Infusion Azithromycin 500 mg in 250 mls @ 250 mls/hr 11/10/24 16:00 11/10/24 16:31 Zithromax IVPB Infused Q24H SAMY Infusion Propofol 100 mls @ 0 mls/hr 11/10/24 15:45 11/11/24 08:00 Diprivan IV CONT 0 mcg/kg/min .Q0M SAMY 0 mls/hr Titration Protocol 0 MCG/KG/MIN Vancomycin HCl 1,500 mg in 500 mls @ 250 mls/hr 11/11/24 11:00 Vancomycin 1,500 Mg/Ns 500 Ml IVPB Q18H SAMY Norepinephrine Bitartrate 8 mg in 250 mls @ 0 mls/hr 11/10/24 17:05 11/11/24 08:00 Levophed 8 Mg/D5w 250 Ml IV CONT 0 mcg/min .Q0M SAMY 0 mls/hr Titration Protocol Dextrose 1,000 mls @ 100 mls/hr 11/11/24 07:25 Dextrose 5% 1,000 Ml IVPB PRN PRN Hypoglycemia Protocol Multi-Ingred Cream/Lotion/Oil/Oint 1 applic 11/09/24 21:00 11/11/24 08:27 Mineral Oil/White Petrolatum Ointment EACH EYE 1 applic Q12HR SAMY Administration Multi-Ingred Cream/Lotion/Oil/Oint 1 applic 11/10/24 09:00 11/11/24 08:27 Mineral Oil/White Petrolatum Ointment EACH EYE 1 applic Q12HR SAMY Administration Pantoprazole Sodium 40 mg 11/10/24 21:00 11/11/24 08:27 Pantoprazole Sodium Iv 40 Mg Vial IV PUSH 40 mg Q12HR SAMY Administration Sodium Chloride 10 ml 11/10/24 06:00 11/11/24 05:13 Central Line Flush IV PUSH 10 ml Q8HR SAMY Administration Sodium Chloride 20 ml 11/10/24 03:49 11/10/24 20:46 Central Line Flush IV PUSH 20 ml PRN PRN Administration after blood draws Ticagrelor 90 mg 11/09/24 21:00 11/11/24 08:27 Ticagrelor 90 Mg Tablet PO 90 mg Q12HR SAMY Administration Radiology Results: ITS Impressions Head CT 11/09/24 20:38 Impression: Global intracranial parenchymal edema without acute intracranial hemorrhage or suspicious mass effect, as detailed above. Short-term follow-up is recommended. ADDENDUM: 11/09/24 2103 Increased attenuation within the venous sinuses as well as a visualized intracranial vascular structures initially suggesting increased intravascular density rather than acute intracranial hemorrhage. Given patient's history of recent cardiac catheterization (within the last 1-2 hours) this likely represents intravenous contrast. Chest/Abdomen/Pelvis CT 11/09/24 20:53 IMPRESSION: Acute fracture involving the anterolateral margin of the right sixth rib, likely from patient's CPR. No additional acute findings within the chest, abdomen or pelvis, as detailed above. Abdomen X-Ray 11/10/24 16:50 IMPRESSION: NG tube in stomach Chest X-Ray 11/11/24 06:32 IMPRESSION: Redemonstration of a right-sided pneumothorax, increased in size from previous examination, now approximately 15%. The left lung is fully inflated. Findings suggesting pneumomediastinum. Small left-sided pleural effusion. The remainder of the lungs are clear. Remaining supportive lines and tubes in good position. Labs Labs: Laboratory Results - last 24 hr 11/10/24 11/10/24 11/10/24 10:09 11:00 11:49 WBC RBC Hgb Hct MCV MCH MCHC RDW Plt Count MPV Immature Gran % (Auto) Neut % (Auto) Lymph % (Auto) [place] % (Auto) Eos % (Auto) Baso % (Auto) Lymph # (Auto) [place] # (Auto) Eos # (Auto) Baso # (Auto) Abs Immat Gran (auto) Absolute Neuts (auto) Absolute Nucleated RBC Nucleated RBC % PT INR APTT Puncture Site ABG pH ABG pCO2 ABG pO2 ABG PO2/FiO2 Ratio ABG HCO3 ABG O2 Saturation ABG O2 Content ABG Base Excess A-a Gradient Oxyhemoglobin Carboxyhemoglobin Methemoglobin Reduced Hemoglobin Total Hemoglobin O2 Delivery Device O2 Liters/Min Minute Volume Vent Rate Vent Mode FiO2 Tidal Volume PEEP Peak Inspir Pressure Pressure Support Sodium Potassium Chloride Carbon Dioxide Anion Gap BUN Creatinine Estim Creat Clear Calc Estimated GFR Glucose POC Capillary Glucose 118 H 106 H 100 Lactic Acid Calcium Phosphorus Magnesium Total Bilirubin AST ALT Alkaline Phosphatase Total Creatine Kinase Total Protein Albumin Triglycerides Nasal MRSA (PCR) 11/10/24 11/10/24 11/10/24 11:53 12:52 13:55 WBC RBC Hgb Hct MCV MCH MCHC RDW Plt Count MPV Immature Gran % (Auto) Neut % (Auto) Lymph % (Auto) [place] % (Auto) Eos % (Auto) Baso % (Auto) Lymph # (Auto) [place] # (Auto) Eos # (Auto) Baso # (Auto) Abs Immat Gran (auto) Absolute Neuts (auto) Absolute Nucleated RBC Nucleated RBC % PT INR APTT Puncture Site ABG pH ABG pCO2 ABG pO2 ABG PO2/FiO2 Ratio ABG HCO3 ABG O2 Saturation ABG O2 Content ABG Base Excess A-a Gradient Oxyhemoglobin Carboxyhemoglobin Methemoglobin Reduced Hemoglobin Total Hemoglobin O2 Delivery Device O2 Liters/Min Minute Volume Vent Rate Vent Mode FiO2 Tidal Volume PEEP Peak Inspir Pressure Pressure Support Sodium 137 Potassium 3.9 Chloride 103 Carbon Dioxide 27 Anion Gap 7 BUN 19 Creatinine 1.12 Estim Creat Clear Calc 67 Estimated GFR > 60 Glucose 126 H POC Capillary Glucose 108 H 137 H Lactic Acid 1.7 Calcium 8.1 L Phosphorus 3.5 Magnesium 1.8 Total Bilirubin AST ALT Alkaline Phosphatase Total Creatine Kinase 790 H Total Protein Albumin Triglycerides Nasal MRSA (PCR) 11/10/24 11/10/24 11/10/24 14:15 15:43 15:57 WBC RBC Hgb Hct MCV MCH MCHC RDW Plt Count MPV Immature Gran % (Auto) Neut % (Auto) Lymph % (Auto) [place] % (Auto) Eos % (Auto) Baso % (Auto) Lymph # (Auto) [place] # (Auto) Eos # (Auto) Baso # (Auto) Abs Immat Gran (auto) Absolute Neuts (auto) Absolute Nucleated RBC Nucleated RBC % PT INR APTT Puncture Site ABG pH ABG pCO2 ABG pO2 ABG PO2/FiO2 Ratio ABG HCO3 ABG O2 Saturation ABG O2 Content ABG Base Excess A-a Gradient Oxyhemoglobin Carboxyhemoglobin Methemoglobin Reduced Hemoglobin Total Hemoglobin O2 Delivery Device O2 Liters/Min Minute Volume Vent Rate Vent Mode FiO2 Tidal Volume PEEP Peak Inspir Pressure Pressure Support Sodium Potassium Chloride Carbon Dioxide Anion Gap BUN Creatinine Estim Creat Clear Calc Estimated GFR Glucose POC Capillary Glucose 127 H 126 H Lactic Acid Calcium Phosphorus Magnesium Total Bilirubin AST ALT Alkaline Phosphatase Total Creatine Kinase Total Protein Albumin Triglycerides Nasal MRSA (PCR) Not detected 11/10/24 11/10/24 11/10/24 17:25 18:20 18:32 WBC 16.3 H RBC 3.15 L Hgb 10.3 L Hct 31.2 L MCV 99.0 MCH 32.7 MCHC 33.0 RDW 12.6 Plt Count 186 MPV 9.3 Immature Gran % (Auto) Neut % (Auto) Lymph % (Auto) [place] % (Auto) Eos % (Auto) Baso % (Auto) Lymph # (Auto) [place] # (Auto) Eos # (Auto) Baso # (Auto) Abs Immat Gran (auto) Absolute Neuts (auto) Absolute Nucleated RBC Nucleated RBC % PT 15.2 H INR 1.2 APTT 27.3 Puncture Site ABG pH ABG pCO2 ABG pO2 ABG PO2/FiO2 Ratio ABG HCO3 ABG O2 Saturation ABG O2 Content ABG Base Excess A-a Gradient Oxyhemoglobin Carboxyhemoglobin Methemoglobin Reduced Hemoglobin Total Hemoglobin O2 Delivery Device O2 Liters/Min Minute Volume Vent Rate Vent Mode FiO2 Tidal Volume PEEP Peak Inspir Pressure Pressure Support Sodium Potassium Chloride Carbon Dioxide Anion Gap BUN Creatinine Estim Creat Clear Calc Estimated GFR Glucose POC Capillary Glucose 137 H 145 H Lactic Acid 2.8 H Calcium Phosphorus Magnesium Total Bilirubin AST ALT Alkaline Phosphatase Total Creatine Kinase 735 H Total Protein Albumin Triglycerides 120 Nasal MRSA (PCR) 11/10/24 11/10/24 11/10/24 19:39 20:28 20:32 WBC RBC Hgb Hct MCV MCH MCHC RDW Plt Count MPV Immature Gran % (Auto) Neut % (Auto) Lymph % (Auto) [place] % (Auto) Eos % (Auto) Baso % (Auto) Lymph # (Auto) [place] # (Auto) Eos # (Auto) Baso # (Auto) Abs Immat Gran (auto) Absolute Neuts (auto) Absolute Nucleated RBC Nucleated RBC % PT INR APTT Puncture Site ABG pH ABG pCO2 ABG pO2 ABG PO2/FiO2 Ratio ABG HCO3 ABG O2 Saturation ABG O2 Content ABG Base Excess A-a Gradient Oxyhemoglobin Carboxyhemoglobin Methemoglobin Reduced Hemoglobin Total Hemoglobin O2 Delivery Device O2 Liters/Min Minute Volume Vent Rate Vent Mode FiO2 Tidal Volume PEEP Peak Inspir Pressure Pressure Support Sodium 139 Potassium 4.2 Chloride 105 Carbon Dioxide 27 Anion Gap 7 BUN 22 H Creatinine 1.11 Estim Creat Clear Calc 68 Estimated GFR > 60 Glucose 155 H POC Capillary Glucose 142 H 149 H Lactic Acid Calcium 7.7 L Phosphorus 3.5 Magnesium 2.0 Total Bilirubin AST ALT Alkaline Phosphatase Total Creatine Kinase Total Protein Albumin Triglycerides Nasal MRSA (PCR) 11/10/24 11/10/24 11/10/24 21:44 22:32 22:34 WBC RBC Hgb Hct MCV MCH MCHC RDW Plt Count MPV Immature Gran % (Auto) Neut % (Auto) Lymph % (Auto) [place] % (Auto) Eos % (Auto) Baso % (Auto) Lymph # (Auto) [place] # (Auto) Eos # (Auto) Baso # (Auto) Abs Immat Gran (auto) Absolute Neuts (auto) Absolute Nucleated RBC Nucleated RBC % PT INR APTT Puncture Site ABG pH ABG pCO2 ABG pO2 ABG PO2/FiO2 Ratio ABG HCO3 ABG O2 Saturation ABG O2 Content ABG Base Excess A-a Gradient Oxyhemoglobin Carboxyhemoglobin Methemoglobin Reduced Hemoglobin Total Hemoglobin O2 Delivery Device O2 Liters/Min Minute Volume Vent Rate Vent Mode FiO2 Tidal Volume PEEP Peak Inspir Pressure Pressure Support Sodium Potassium Chloride Carbon Dioxide Anion Gap BUN Creatinine Estim Creat Clear Calc Estimated GFR Glucose POC Capillary Glucose 154 H 152 H Lactic Acid 2.3 H Calcium Phosphorus Magnesium Total Bilirubin AST ALT Alkaline Phosphatase Total Creatine Kinase 678 H Total Protein Albumin Triglycerides Nasal MRSA (PCR) 11/10/24 11/11/24 11/11/24 23:46 00:40 01:36 WBC RBC Hgb Hct MCV MCH MCHC RDW Plt Count MPV Immature Gran % (Auto) Neut % (Auto) Lymph % (Auto) [place] % (Auto) Eos % (Auto) Baso % (Auto) Lymph # (Auto) [place] # (Auto) Eos # (Auto) Baso # (Auto) Abs Immat Gran (auto) Absolute Neuts (auto) Absolute Nucleated RBC Nucleated RBC % PT INR APTT Puncture Site ABG pH ABG pCO2 ABG pO2 ABG PO2/FiO2 Ratio ABG HCO3 ABG O2 Saturation ABG O2 Content ABG Base Excess A-a Gradient Oxyhemoglobin Carboxyhemoglobin Methemoglobin Reduced Hemoglobin Total Hemoglobin O2 Delivery Device O2 Liters/Min Minute Volume Vent Rate Vent Mode FiO2 Tidal Volume PEEP Peak Inspir Pressure Pressure Support Sodium Potassium Chloride Carbon Dioxide Anion Gap BUN Creatinine Estim Creat Clear Calc Estimated GFR Glucose POC Capillary Glucose 143 H 156 H 134 H Lactic Acid Calcium Phosphorus Magnesium Total Bilirubin AST ALT Alkaline Phosphatase Total Creatine Kinase Total Protein Albumin Triglycerides Nasal MRSA (PCR) 11/11/24 11/11/24 11/11/24 02:38 05:09 05:14 WBC 9.8 RBC 3.06 L Hgb 10.1 L Hct 30.5 L MCV 99.7 MCH 33.0 MCHC 33.1 RDW 12.4 Plt Count 154 MPV 9.4 Immature Gran % (Auto) 0.2 Neut % (Auto) 84.5 H Lymph % (Auto) 5.9 L [place] % (Auto) 8.5 Eos % (Auto) 0.4 Baso % (Auto) 0.5 Lymph # (Auto) 0.58 L [place] # (Auto) 0.8 H Eos # (Auto) 0.0 Baso # (Auto) 0.1 Abs Immat Gran (auto) 0.02 Absolute Neuts (auto) 8.3 H Absolute Nucleated RBC 0.000 Nucleated RBC % 0.0 PT 14.6 INR 1.1 APTT 29.1 Puncture Site Left radial ABG pH 7.423 ABG pCO2 40.6 ABG pO2 64.0 L ABG PO2/FiO2 Ratio 1.07 ABG HCO3 25.9 ABG O2 Saturation 92.9 L ABG O2 Content 14.6 L ABG Base Excess 1.4 A-a Gradient 319.1 Oxyhemoglobin 91.8 Carboxyhemoglobin 0.0 Methemoglobin 0.3 Reduced Hemoglobin 7.9 H Total Hemoglobin 11.3 L O2 Delivery Device Ventilator O2 Liters/Min Not Reportable Minute Volume Not Reportable Vent Rate 22 Vent Mode Cmv FiO2 60 Tidal Volume 480 PEEP 5 Peak Inspir Pressure Not Reportable Pressure Support Not Reportable Sodium 139 Potassium 3.7 Chloride 104 Carbon Dioxide 27 Anion Gap 8 BUN 21 H Creatinine 1.13 Estim Creat Clear Calc 67 Estimated GFR > 60 Glucose 128 H POC Capillary Glucose 133 H Lactic Acid 2.0 Calcium 7.8 L Phosphorus 2.8 Magnesium 2.0 Total Bilirubin 0.7 AST 86 H ALT 51 H Alkaline Phosphatase 43 Total Creatine Kinase 684 H Total Protein 6.0 L Albumin 3.4 L Triglycerides Nasal MRSA (PCR) Quality VTE Prophylaxis VTE prophylaxis: mechanical ordered
--- NOTE | 2024-11-11 09:46 | PM.IMPN ---
Progress Note: A&P Assessment and Plan (1) Cardiac arrest with successful resuscitation: Code(s): I46.9 - Cardiac arrest, cause unspecified Status: Acute Assessment and Plan: Cardiac arrest most likely related to ST-elevation NM -patient had agonal breathing, EMS was called, upon arrival of the EMS patient was pulseless, CPR was started, defibrillated x1, ROSC was achieved in approximately 10 minutes -patient was intubated in the field but was unable to be bagged, ETT was removed and was found to have a piece of toast in the ETT, he was deeply suction and upon arrival to the ER he was re-intubated. -currently on target temperature management protocol at 36?C, since patient was in VFib arrest. -patient was cooled at just after 12:00 a.m. on 11/10/2024. Will follow the protocol, maintained cooling for 24 hours and will be removed passively after that. -patient has been rewarmed, -have asked the bedside RN wean sedation to off, will allow the patient to wake up in evaluate his neurological status.. 11/11: CT scan of the brain showed increased attenuation within the venous sinuses as well as a visualized intracranial vascular structure initially suggesting increased intravascular density rather than acute intracranial hemorrhage. Given patient's history of recent cardiac catheterization (within the last 1-2 hours) this likely represents intravenous contrast. Global intracranial parenchyma him edema was noted, - Transfer was initiated to [facility] and he was accepted to CVICU per Dr. Kumar however no beds are available at this time. Recommends continued management as above. (2) ST elevation (STEMI) myocardial infarction: Code(s): I21.3 - ST elevation (STEMI) myocardial infarction of unspecified site Status: Acute Assessment and Plan: Patient presented with VFib arrest, EKG showed ST-elevation NM, patient was taken to the photographic laboratory technician with PTCA/PCI to mid RCA with NELLA x1 -post cardiac catheterization he was started on Integrilin infusion but patient was in DIC, ICU team discussed with hospice administrator was okay to stop the Integrilin infusion. -continue aspirin, ticagrelor, atorvastatin -cardiology following the patient 11/10/2024: Echocardiogram Summary 1. Technically difficult study with limited views, even with Definity. 2. Left ventricular chamber dimension is normal. 3. There is mildly increased left ventricular wall thickness. 4. Left ventricular systolic function is moderately reduced, estimated at 35-40%. 5. The inferior wall appears to be hypokinetic. 6. The left ventricular diastolic function is grade I diastolic dysfunction. 7. Right ventricular systolic function is normal. 8. No significant valvular disease appreciated, however, technically difficult study. (3) Acute respiratory failure: Code(s): J96.00 - Acute respiratory failure, unspecified whether with hypoxia or hypercapnia Status: Acute Assessment and Plan: Acute respiratory failure likely related to cardiac arrest -currently on cooling protocol -11/09: Intubated -currently on CMV mode of ventilation, peep of peep of 5, 60% FiO2 -continue bronchodilators -DuoNeb -sedated with fentanyl and Versed infusion, maintain RASS of 0 to -2, have asked the bedside RN to start weaning the sedation to off (4) Disseminated intravascular coagulation: Code(s): D65 - Disseminated intravascular coagulation [defibrination syndrome] Status: Acute Assessment and Plan: Status cardiac arrest, cardiac catheterization, Integrilin infusion, patient was in DIC, was given 2 units of FFP the, vitamin K, 1 unit of cryoprecipitate (for INR of 9.0, PTT of 73.4, APTT was> 200, fibrinogen level was 197 and D-dimer> 20.0 -this morning coags look much improved, INR of 1.1, PTT 29 (5) Hypertension: Qualifiers: Hypertension type: unspecified Qualified Code(s): I10 - Essential (primary) hypertension Code(s): I10 - Essential (primary) hypertension Status: Acute Assessment and Plan: Patient history of hypertension, currently intubated in positive-pressure ventilation and sedation medications blood pressures have been stable, not requiring any pressors at this time -will hold home of all home anti hypertensive medication (6) Hyperlipidemia: Qualifiers: Hyperlipidemia type: unspecified Qualified Code(s): E78.5 - Hyperlipidemia, unspecified Code(s): E78.5 - Hyperlipidemia, unspecified Status: Acute Assessment and Plan: Continue atorvastatin (7) Bilateral pneumothoraces: Code(s): J93.9 - Pneumothorax, unspecified Status: Acute Assessment and Plan: 11/10: At around 1:30 p.m., was called to see the patient in the room as he was getting restless, tachypneic, tachycardic. Ventilator was alarming high peak pressures -on lung exam no air entry 0 breath sounds were auscultated, patient central dropped oxygen saturation in this 80s and then 70s. Started bagging patient, bagging was very difficult. During all dex patient did drop his O2 sats in the 40s, heart rate in the 50s, was given amp of epinephrine and an amp of bicarb. I decided to exchange the ETT which was size 7 to a larger size tube. -utilizing the glide scope, removed the ETT which had a very large mucus plug at the end of the ETT -successful re-intubation with a size 8 ET tube using the glide scope -once ETT was exchange, bagging was much easy -post intubation auscultation did not reveal left-sided breath sounds, - stat chest x-ray chest x-ray showed large left pneumothorax had interval development of opacification in the right joellen thorax which may reflect atelectasis edema -11/10: Status post left-sided chest tube placement 11/12: Left side has chest tube Right-sided pneumothorax, have asked surgery to place a chest tube Plan DVT prophylaxis: SCDs Stress ulcer prophylaxis: Protonix Nutrition: Will start tubes Code Status: Full code Subjective Date/time seen: 11/11/24 09:46 Interval history: Patient was seen during the morning rounds. Intubated and sedated with left side chest tube. No new overnight complaints Review of Systems Review of Systems: Unable to obtain given clinical condition. ROS unobtainable: Yes unobtainable due to endotracheal tube, unobtainable due to medical condition and unobtainable due to mental status Exam Narrative: General: Intubated, sedated, in no acute distress HEENT:? Pupils equal and reactive, sclerae is clear, ETT in place Neck:? Supple Respiratory:? Coarse breath sounds bilaterally, decreased at bases, no wheezing, adequate air entry, left-sided chest tube with no air leak Cardiac:? S1-S2 normal, r sinus tachycardia Abdomen:? Soft, nontender, nondistended, hypoactive bowel sounds Extremities:? No edema, palpable pedal pulses, Neuro:? Patient is intubated, sedated, does not open his eyes or follow simple commands Skin:? No skin lesions noted Psych:? Unable to assess at this time Objective Data Vital Signs Vital Signs: Vital Signs - 24 hr 11/10/24 10:00 11/10/24 10:00 11/10/24 10:00 Temperature 37.7 C H 37.7 C H Pulse Rate 79 80 80 Respiratory Rate 20 22 H Blood Pressure 105/71 105/71 Pulse Oximetry 95 95 Oxygen Delivery Fraction of Inspired Oxygen 11/10/24 10:00 11/10/24 10:00 11/10/24 11:00 Temperature 37.9 C H Pulse Rate 80 80 80 Respiratory Rate 22 H 22 H 22 H Blood Pressure 109/73 Pulse Oximetry 94 Oxygen Delivery Fraction of Inspired Oxygen 11/10/24 11:00 11/10/24 11:00 11/10/24 11:30 Temperature 37.9 C H Pulse Rate 80 80 83 Respiratory Rate 22 H 22 H 22 H Blood Pressure 109/73 Pulse Oximetry 94 Oxygen Delivery Fraction of Inspired Oxygen 11/10/24 11:31 11/10/24 12:00 11/10/24 12:00 Temperature Pulse Rate 83 Respiratory Rate Blood Pressure Pulse Oximetry 95 96 Oxygen Delivery Mechanical Ventilation Mechanical Ventilation Fraction of Inspired Oxygen 45 45 45 11/10/24 12:00 11/10/24 12:00 11/10/24 12:00 Temperature 37.8 C H Pulse Rate 83 83 83 Respiratory Rate 22 H 22 H 22 H Blood Pressure 98/69 L Pulse Oximetry 92 Oxygen Delivery Fraction of Inspired Oxygen 11/10/24 12:00 11/10/24 12:30 11/10/24 13:00 Temperature 38.3 C H Pulse Rate 84 88 98 Respiratory Rate 22 H 15 Blood Pressure 124/75 Pulse Oximetry 95 Oxygen Delivery Fraction of Inspired Oxygen 11/10/24 13:00 11/10/24 13:00 11/10/24 13:00 Temperature 37.2 C Pulse Rate 98 98 98 Respiratory Rate 22 H 22 H 22 H Blood Pressure 124/75 Pulse Oximetry 95 Oxygen Delivery Fraction of Inspired Oxygen 11/10/24 13:30 11/10/24 13:43 11/10/24 14:00 Temperature 37.0 C Pulse Rate 143 H 120 H 133 H Respiratory Rate 22 H 20 Blood Pressure 106/76 Pulse Oximetry 86 L 89 L Oxygen Delivery Mechanical Ventilation Fraction of Inspired Oxygen 100 11/10/24 14:00 11/10/24 14:00 11/10/24 14:00 Temperature 37.0 C Pulse Rate 133 H 133 H 133 H Respiratory Rate 22 H 22 H Blood Pressure 106/76 Pulse Oximetry 88 L Oxygen Delivery Fraction of Inspired Oxygen 11/10/24 14:06 11/10/24 14:06 11/10/24 14:22 Temperature Pulse Rate 125 H 125 H 116 H Respiratory Rate 22 H Blood Pressure Pulse Oximetry 88 L 93 Oxygen Delivery Mechanical Ventilation Mechanical Ventilation Fraction of Inspired Oxygen 100 100 11/10/24 14:22 11/10/24 14:48 11/10/24 15:00 Temperature 36.9 C Pulse Rate 116 H 103 H Respiratory Rate 22 H 22 H Blood Pressure 98/77 L Pulse Oximetry 88 L Oxygen Delivery Fraction of Inspired Oxygen 100 11/10/24 15:00 11/10/24 15:00 11/10/24 15:45 Temperature Pulse Rate 103 H 103 H 86 Respiratory Rate 22 H 22 H 22 H Blood Pressure 98/77 L Pulse Oximetry 90 Oxygen Delivery Fraction of Inspired Oxygen 11/10/24 16:00 11/10/24 16:00 11/10/24 16:00 Temperature 36.1 C L Pulse Rate 102 H 102 H 102 H Respiratory Rate 22 H 22 H 22 H Blood Pressure 95/74 L 95/74 L Pulse Oximetry 100 100 Oxygen Delivery Fraction of Inspired Oxygen 11/10/24 16:00 11/10/24 16:00 11/10/24 16:00 Temperature Pulse Rate 102 H Respiratory Rate 22 H Blood Pressure Pulse Oximetry 100 Oxygen Delivery Mechanical Ventilation Fraction of Inspired Oxygen 100 100 11/10/24 16:00 11/10/24 16:13 11/10/24 17:00 Temperature 36.1 C L Pulse Rate 93 108 H 84 Respiratory Rate 22 H Blood Pressure 91/68 L Pulse Oximetry 100 100 Oxygen Delivery Mechanical Ventilation Fraction of Inspired Oxygen 100 11/10/24 17:00 11/10/24 17:00 11/10/24 17:16 Temperature Pulse Rate 84 84 84 Respiratory Rate 22 H 22 H Blood Pressure 91/68 L 88/70 L Pulse Oximetry 100 Oxygen Delivery Fraction of Inspired Oxygen 11/10/24 17:41 11/10/24 18:00 11/10/24 18:00 Temperature 36.2 C L 36.2 C L Pulse Rate 78 78 Respiratory Rate 22 H 22 H Blood Pressure 103/79 107/74 Pulse Oximetry 99 99 Oxygen Delivery Fraction of Inspired Oxygen 80 11/10/24 18:00 11/10/24 18:00 11/10/24 18:00 Temperature Pulse Rate 78 80 78 Respiratory Rate 22 H 22 H Blood Pressure 107/74 Pulse Oximetry Oxygen Delivery Fraction of Inspired Oxygen 11/10/24 18:00 11/10/24 18:00 11/10/24 18:31 Temperature Pulse Rate 80 71 Respiratory Rate 22 H Blood Pressure Pulse Oximetry Oxygen Delivery Fraction of Inspired Oxygen 70 11/10/24 18:47 11/10/24 18:47 11/10/24 18:48 Temperature Pulse Rate 77 77 76 Respiratory Rate 22 H 22 H Blood Pressure 95/69 L Pulse Oximetry Oxygen Delivery Fraction of Inspired Oxygen 11/10/24 19:00 11/10/24 19:00 11/10/24 19:45 Temperature 35.7 C L 35.6 C L Pulse Rate 68 68 66 Respiratory Rate 22 H 22 H 22 H Blood Pressure 103/74 107/76 Pulse Oximetry 99 98 Oxygen Delivery Fraction of Inspired Oxygen 11/10/24 20:00 11/10/24 20:00 11/10/24 20:00 Temperature Pulse Rate 66 66 66 Respiratory Rate 22 H 22 H Blood Pressure 102/74 Pulse Oximetry Oxygen Delivery Fraction of Inspired Oxygen 11/10/24 20:00 11/10/24 20:00 11/10/24 20:00 Temperature 35.6 C L 35.6 C L Pulse Rate 66 66 66 Respiratory Rate 22 H 22 H 22 H Blood Pressure 102/74 102/74 Pulse Oximetry 99 99 Oxygen Delivery Fraction of Inspired Oxygen 11/10/24 20:00 11/10/24 20:00 11/10/24 20:00 Temperature Pulse Rate 66 67 Respiratory Rate 22 H Blood Pressure Pulse Oximetry 99 Oxygen Delivery Mechanical Ventilation Fraction of Inspired Oxygen 70 70 11/10/24 20:45 11/10/24 21:00 11/10/24 21:12 Temperature 36.1 C L Pulse Rate 68 71 72 Respiratory Rate 22 H 22 H 22 H Blood Pressure 105/72 Pulse Oximetry 98 Oxygen Delivery Fraction of Inspired Oxygen 11/10/24 21:22 11/10/24 21:30 11/10/24 21:40 Temperature Pulse Rate 72 75 80 Respiratory Rate 22 H 22 H Blood Pressure Pulse Oximetry 98 Oxygen Delivery Mechanical Ventilation Fraction of Inspired Oxygen 70 11/10/24 21:52 11/10/24 22:00 11/10/24 22:00 Temperature Pulse Rate 79 80 80 Respiratory Rate 80 H 22 H 22 H Blood Pressure Pulse Oximetry Oxygen Delivery Fraction of Inspired Oxygen 11/10/24 22:00 11/10/24 22:00 11/10/24 22:00 Temperature 36.2 C L Pulse Rate 80 80 80 Respiratory Rate 22 H 22 H Blood Pressure 98/66 L 98/66 L Pulse Oximetry 97 Oxygen Delivery Fraction of Inspired Oxygen 11/10/24 22:00 11/10/24 22:45 11/10/24 22:50 Temperature Pulse Rate 80 72 73 Respiratory Rate 22 H 22 H Blood Pressure 112/75 Pulse Oximetry 98 Oxygen Delivery Fraction of Inspired Oxygen 11/10/24 22:55 11/10/24 23:00 11/10/24 23:00 Temperature 35.5 C L Pulse Rate 72 72 73 Respiratory Rate 22 H 22 H 22 H Blood Pressure 109/75 107/73 107/73 Pulse Oximetry 99 99 99 Oxygen Delivery Fraction of Inspired Oxygen 11/10/24 23:01 11/10/24 23:05 11/10/24 23:10 Temperature Pulse Rate 72 71 69 Respiratory Rate 22 H 22 H 22 H Blood Pressure 106/71 105/73 Pulse Oximetry 99 99 99 Oxygen Delivery Fraction of Inspired Oxygen 11/10/24 23:15 11/10/24 23:16 11/10/24 23:20 Temperature Pulse Rate 68 68 67 Respiratory Rate 22 H 22 H 22 H Blood Pressure 106/75 103/72 Pulse Oximetry 99 99 99 Oxygen Delivery Fraction of Inspired Oxygen 11/10/24 23:22 11/10/24 23:25 11/10/24 23:30 Temperature Pulse Rate 69 68 68 Respiratory Rate 22 H 22 H Blood Pressure 107/74 104/72 Pulse Oximetry 99 100 100 Oxygen Delivery Mechanical Ventilation Fraction of Inspired Oxygen 70 11/10/24 23:31 11/10/24 23:35 11/10/24 23:40 Temperature Pulse Rate 69 68 68 Respiratory Rate 22 H 22 H 22 H Blood Pressure 101/71 101/71 Pulse Oximetry 100 100 100 Oxygen Delivery Fraction of Inspired Oxygen 11/10/24 23:45 11/10/24 23:46 11/10/24 23:50 Temperature Pulse Rate 70 71 71 Respiratory Rate 22 H 22 H 22 H Blood Pressure 109/73 106/78 Pulse Oximetry 100 100 100 Oxygen Delivery Fraction of Inspired Oxygen 11/10/24 23:55 11/11/24 00:00 11/11/24 00:00 Temperature 35.4 C L Pulse Rate 70 73 73 Respiratory Rate 22 H 22 H 22 H Blood Pressure 104/72 87/60 L Pulse Oximetry 100 98 Oxygen Delivery Fraction of Inspired Oxygen 11/11/24 00:00 11/11/24 00:00 11/11/24 00:00 Temperature Pulse Rate 73 73 73 Respiratory Rate 22 H 22 H Blood Pressure 87/60 L Pulse Oximetry Oxygen Delivery Fraction of Inspired Oxygen 11/11/24 00:00 11/11/24 00:00 11/11/24 00:00 Temperature 35.4 C L Pulse Rate 73 73 Respiratory Rate 22 H 22 H Blood Pressure 87/60 L Pulse Oximetry 98 98 Oxygen Delivery Mechanical Ventilation Fraction of Inspired Oxygen 70 70 11/11/24 00:00 11/11/24 00:00 11/11/24 00:01 Temperature Pulse Rate 76 70 71 Respiratory Rate 22 H 20 Blood Pressure 107/71 Pulse Oximetry 100 100 Oxygen Delivery Fraction of Inspired Oxygen 11/11/24 00:06 11/11/24 00:10 11/11/24 00:15 Temperature Pulse Rate 75 73 73 Respiratory Rate 22 H 22 H 22 H Blood Pressure 87/60 L 102/70 100/69 Pulse Oximetry 100 98 97 Oxygen Delivery Fraction of Inspired Oxygen 11/11/24 00:16 11/11/24 00:20 11/11/24 00:25 Temperature Pulse Rate 74 74 75 Respiratory Rate 22 H 22 H 20 Blood Pressure 98/69 L 101/69 Pulse Oximetry 97 97 97 Oxygen Delivery Fraction of Inspired Oxygen 11/11/24 00:30 11/11/24 00:31 11/11/24 00:35 Temperature Pulse Rate 76 75 76 Respiratory Rate 22 H 22 H 20 Blood Pressure 99/69 L 101/70 Pulse Oximetry 97 97 97 Oxygen Delivery Fraction of Inspired Oxygen 11/11/24 00:40 11/11/24 00:40 11/11/24 00:45 Temperature Pulse Rate 77 78 Respiratory Rate 22 H 22 H Blood Pressure 104/72 Pulse Oximetry 99 Oxygen Delivery Fraction of Inspired Oxygen 65 11/11/24 00:45 11/11/24 00:45 11/11/24 00:46 Temperature Pulse Rate 78 79 79 Respiratory Rate 22 H 22 H 22 H Blood Pressure 105/71 Pulse Oximetry 98 97 Oxygen Delivery Fraction of Inspired Oxygen 11/11/24 00:50 11/11/24 00:55 11/11/24 01:00 Temperature 36.7 C Pulse Rate 78 79 87 Respiratory Rate 22 H 22 H 22 H Blood Pressure 106/75 105/70 111/75 Pulse Oximetry 97 98 97 Oxygen Delivery Fraction of Inspired Oxygen 11/11/24 01:00 11/11/24 01:01 11/11/24 01:05 Temperature Pulse Rate 80 80 81 Respiratory Rate 22 H 22 H 22 H Blood Pressure 110/73 108/78 Pulse Oximetry 97 98 97 Oxygen Delivery Fraction of Inspired Oxygen 11/11/24 01:10 11/11/24 01:15 11/11/24 01:16 Temperature Pulse Rate 82 83 82 Respiratory Rate 22 H 22 H 22 H Blood Pressure 112/75 114/78 Pulse Oximetry 97 98 97 Oxygen Delivery Fraction of Inspired Oxygen 11/11/24 01:20 11/11/24 01:25 11/11/24 01:30 Temperature Pulse Rate 83 84 87 Respiratory Rate 22 H 22 H 22 H Blood Pressure 110/74 115/78 Pulse Oximetry 98 98 Oxygen Delivery Fraction of Inspired Oxygen 11/11/24 01:30 11/11/24 01:30 11/11/24 01:31 Temperature Pulse Rate 87 84 85 Respiratory Rate 22 H 22 H Blood Pressure 111/75 111/75 Pulse Oximetry 97 97 Oxygen Delivery Fraction of Inspired Oxygen 11/11/24 01:35 11/11/24 01:40 11/11/24 01:41 Temperature Pulse Rate 88 88 88 Respiratory Rate 22 H 23 H Blood Pressure 110/74 110/74 106/76 Pulse Oximetry 98 97 Oxygen Delivery Fraction of Inspired Oxygen 11/11/24 01:45 11/11/24 01:46 11/11/24 02:00 Temperature Pulse Rate 88 89 89 Respiratory Rate 20 22 H 22 H Blood Pressure 107/70 106/73 Pulse Oximetry 96 96 97 Oxygen Delivery Fraction of Inspired Oxygen 11/11/24 02:00 11/11/24 02:00 11/11/24 02:00 Temperature Pulse Rate 89 89 89 Respiratory Rate 22 H 22 H Blood Pressure 106/73 Pulse Oximetry Oxygen Delivery Fraction of Inspired Oxygen 11/11/24 02:00 11/11/24 02:01 11/11/24 02:10 Temperature 37.2 C Pulse Rate 89 90 89 Respiratory Rate 22 H 22 H 22 H Blood Pressure 106/73 Pulse Oximetry 97 97 Oxygen Delivery Fraction of Inspired Oxygen 11/11/24 02:15 11/11/24 02:15 11/11/24 02:15 Temperature 37.2 C Pulse Rate 89 90 89 Respiratory Rate 22 H 22 H Blood Pressure 102/70 102/70 Pulse Oximetry 97 97 Oxygen Delivery Fraction of Inspired Oxygen 11/11/24 02:16 11/11/24 02:30 11/11/24 02:31 Temperature Pulse Rate 90 90 92 Respiratory Rate 22 H 22 H 22 H Blood Pressure 104/73 Pulse Oximetry 97 97 98 Oxygen Delivery Fraction of Inspired Oxygen 11/11/24 02:34 11/11/24 02:40 11/11/24 02:40 Temperature Pulse Rate 93 94 72 Respiratory Rate 22 H 22 H Blood Pressure Pulse Oximetry 100 Oxygen Delivery Mechanical Ventilation Fraction of Inspired Oxygen 65 11/11/24 02:41 11/11/24 02:45 11/11/24 02:45 Temperature 37.6 C H Pulse Rate 94 96 97 Respiratory Rate 22 H 22 H 22 H Blood Pressure 107/73 Pulse Oximetry 97 Oxygen Delivery Fraction of Inspired Oxygen 11/11/24 02:46 11/11/24 03:00 11/11/24 03:01 Temperature Pulse Rate 98 99 99 Respiratory Rate 21 H 19 19 Blood Pressure 108/70 Pulse Oximetry 97 97 97 Oxygen Delivery Fraction of Inspired Oxygen 11/11/24 03:15 11/11/24 03:24 11/11/24 03:30 Temperature 37.7 C H Pulse Rate 108 H 106 H Respiratory Rate 18 14 Blood Pressure 112/77 Pulse Oximetry 94 92 Oxygen Delivery Fraction of Inspired Oxygen 11/11/24 03:30 11/11/24 03:30 11/11/24 03:30 Temperature Pulse Rate 114 H 114 H 111 H Respiratory Rate 23 H 23 H 94 H Blood Pressure Pulse Oximetry 22 L Oxygen Delivery Mechanical Ventilation Fraction of Inspired Oxygen 60 11/11/24 03:30 11/11/24 03:30 11/11/24 03:31 Temperature Pulse Rate 113 H 111 H Respiratory Rate 22 H 20 Blood Pressure 112/79 Pulse Oximetry 96 97 Oxygen Delivery Fraction of Inspired Oxygen 60 11/11/24 03:45 11/11/24 03:46 11/11/24 04:00 Temperature Pulse Rate 105 H 105 H 104 H Respiratory Rate 15 14 22 H Blood Pressure 108/72 112/70 Pulse Oximetry 90 91 92 Oxygen Delivery Fraction of Inspired Oxygen 11/11/24 04:00 11/11/24 04:00 11/11/24 04:00 Temperature Pulse Rate 104 H 104 H 104 H Respiratory Rate 22 H 22 H Blood Pressure 112/70 Pulse Oximetry Oxygen Delivery Fraction of Inspired Oxygen 11/11/24 04:00 11/11/24 04:00 11/11/24 04:00 Temperature Pulse Rate 104 H 104 H 104 H Respiratory Rate 22 H 16 Blood Pressure 112/70 Pulse Oximetry 92 Oxygen Delivery Fraction of Inspired Oxygen 11/11/24 04:01 11/11/24 04:15 11/11/24 04:16 Temperature Pulse Rate 104 H 103 H 103 H Respiratory Rate 15 17 14 Blood Pressure 115/74 Pulse Oximetry 92 92 93 Oxygen Delivery Fraction of Inspired Oxygen 11/11/24 04:30 11/11/24 04:30 11/11/24 04:31 Temperature Pulse Rate 102 H 105 H 104 H Respiratory Rate 15 15 Blood Pressure 118/70 118/70 Pulse Oximetry 93 92 Oxygen Delivery Fraction of Inspired Oxygen 11/11/24 04:45 11/11/24 04:46 11/11/24 05:00 Temperature Pulse Rate 104 H 103 H 102 H Respiratory Rate 22 H 22 H 23 H Blood Pressure 108/72 103/71 Pulse Oximetry 93 92 92 Oxygen Delivery Fraction of Inspired Oxygen 11/11/24 05:01 11/11/24 05:24 11/11/24 05:27 Temperature 37.8 C H Pulse Rate 102 H 106 H 103 H Respiratory Rate 20 25 H Blood Pressure 103/71 Pulse Oximetry 92 92 93 Oxygen Delivery Mechanical Ventilation Fraction of Inspired Oxygen 60 11/11/24 06:00 11/11/24 06:00 11/11/24 06:00 Temperature 37.8 C H Pulse Rate 101 H 101 H 101 H Respiratory Rate 23 H 23 H Blood Pressure 108/78 Pulse Oximetry 94 Oxygen Delivery Fraction of Inspired Oxygen 11/11/24 06:00 11/11/24 06:00 11/11/24 06:00 Temperature Pulse Rate 101 H 101 H 101 H Respiratory Rate 23 H 23 H Blood Pressure 108/78 Pulse Oximetry Oxygen Delivery Fraction of Inspired Oxygen 11/11/24 06:30 11/11/24 07:00 11/11/24 08:00 Temperature 37.7 C H Pulse Rate 100 100 98 Respiratory Rate 22 H Blood Pressure 115/73 108/72 108/69 Pulse Oximetry 94 Oxygen Delivery Fraction of Inspired Oxygen 11/11/24 08:00 11/11/24 08:00 11/11/24 08:00 Temperature Pulse Rate 98 98 Respiratory Rate 22 H 22 H Blood Pressure Pulse Oximetry Oxygen Delivery Fraction of Inspired Oxygen 60 11/11/24 08:00 11/11/24 08:00 11/11/24 08:00 Temperature Pulse Rate 98 98 Respiratory Rate 22 H Blood Pressure 108/69 Pulse Oximetry 94 Oxygen Delivery Mechanical Ventilation Fraction of Inspired Oxygen 60 11/11/24 08:57 11/11/24 08:57 11/11/24 09:00 Temperature Pulse Rate 104 H 104 H 103 H Respiratory Rate 25 H 22 H Blood Pressure Pulse Oximetry 93 Oxygen Delivery Mechanical Ventilation Fraction of Inspired Oxygen 60 11/11/24 09:00 11/11/24 09:16 Temperature Pulse Rate 103 H 103 H Respiratory Rate 22 H 22 H Blood Pressure Pulse Oximetry Oxygen Delivery Fraction of Inspired Oxygen Intake/Output Intake/Output: Intake & Output 11/08/24 11/09/24 11/10/24 11/11/24 23:59 23:59 23:59 23:59 Intake Total 110.2 1653.8 286.3 Output Total 1654 245 Balance 110.2 -0.2 41.3 Meds/Results Medications: Active Medications Generic Name Dose Route Start Last Admin Trade Name Freq PRN Reason Stop Dose Admin Albuterol/Ipratropium 3 ml 11/10/24 14:00 11/11/24 08:53 Ipratropium 0.5 Mg/Albuterol Sulfate 2.5 Mg Ampul.Neb 3 Ml INHALATION 3 ml Q6HRT SAMY Administration Aspirin 81 mg 11/10/24 09:00 11/11/24 08:27 Aspirin 81 Mg Enteric Tablet PO 81 mg QAM SAMY Administration Atorvastatin Calcium 80 mg 11/09/24 17:45 11/11/24 08:27 Atorvastatin 40 Mg Tablet PO 80 mg DAILY SAMY Administration Dextrose 12.5 gm 11/11/24 07:25 Dextrose 50% 25 Gm/50 Ml Syringe IV PUSH PRN PRN Hypoglycemia Protocol Glucagon 1 mg 11/11/24 07:25 Glucagon For Inj 1 Mg Vial IM PRN PRN Hypoglycemia Protocol Glucose 15 gm 11/11/24 07:25 Glucose Oral Gel 15 Gm Of Glucse In 37.5 Gm Tube PO PRN PRN Hypoglycemia Protocol Levetiracetam 500 mg in 100 mls @ 400 mls/hr 11/10/24 09:00 11/11/24 08:42 Keppra Iv IVPB Infused Q12HR SAMY Infusion Fentanyl Citrate 2,500 mcg in 250 mls @ 2.5 mls/hr 11/09/24 22:35 11/11/24 09:00 Fentanyl 2,500 Mcg/Ns 250 Ml IV CONT 25 mcg/hr .Q72H SAMY 2.5 mls/hr Titration Protocol 25 MCG/HR Midazolam HCl 100 mg in 100 mls @ 0 mls/hr 11/09/24 22:35 11/11/24 09:00 Versed 100 Mg/Ns 100 Ml IV CONT 0 mg/hr .Q0M SAMY 0 mls/hr Titration Protocol Ceftriaxone Sodium 2 gm in 100 mls @ 200 mls/hr 11/10/24 15:00 11/10/24 16:01 Rocephin 2 Gm/Ns 100 Ml IVPB Infused Q24H SAMY Infusion Azithromycin 500 mg in 250 mls @ 250 mls/hr 11/10/24 16:00 11/10/24 16:31 Zithromax IVPB Infused Q24H SAMY Infusion Propofol 100 mls @ 0 mls/hr 11/10/24 15:45 11/11/24 08:00 Diprivan IV CONT 0 mcg/kg/min .Q0M SAMY 0 mls/hr Titration Protocol 0 MCG/KG/MIN Vancomycin HCl 1,500 mg in 500 mls @ 250 mls/hr 11/11/24 11:00 Vancomycin 1,500 Mg/Ns 500 Ml IVPB Q18H SAMY Norepinephrine Bitartrate 8 mg in 250 mls @ 0 mls/hr 11/10/24 17:05 11/11/24 08:00 Levophed 8 Mg/D5w 250 Ml IV CONT 0 mcg/min .Q0M SAMY 0 mls/hr Titration Protocol Dextrose 1,000 mls @ 100 mls/hr 11/11/24 07:25 Dextrose 5% 1,000 Ml IVPB PRN PRN Hypoglycemia Protocol Multi-Ingred Cream/Lotion/Oil/Oint 1 applic 11/09/24 21:00 11/11/24 08:27 Mineral Oil/White Petrolatum Ointment EACH EYE 1 applic Q12HR SAMY Administration Multi-Ingred Cream/Lotion/Oil/Oint 1 applic 11/10/24 09:00 11/11/24 08:27 Mineral Oil/White Petrolatum Ointment EACH EYE 1 applic Q12HR SAMY Administration Pantoprazole Sodium 40 mg 11/10/24 21:00 11/11/24 08:27 Pantoprazole Sodium Iv 40 Mg Vial IV PUSH 40 mg Q12HR SAMY Administration Sodium Chloride 10 ml 11/10/24 06:00 11/11/24 05:13 Central Line Flush IV PUSH 10 ml Q8HR SAMY Administration Sodium Chloride 20 ml 11/10/24 03:49 11/10/24 20:46 Central Line Flush IV PUSH 20 ml PRN PRN Administration after blood draws Ticagrelor 90 mg 11/09/24 21:00 11/11/24 08:27 Ticagrelor 90 Mg Tablet PO 90 mg Q12HR SAMY Administration Radiology Results: ITS Impressions Head CT 11/09/24 20:38 Impression: Global intracranial parenchymal edema without acute intracranial hemorrhage or suspicious mass effect, as detailed above. Short-term follow-up is recommended. ADDENDUM: 11/09/24 2103 Increased attenuation within the venous sinuses as well as a visualized intracranial vascular structures initially suggesting increased intravascular density rather than acute intracranial hemorrhage. Given patient's history of recent cardiac catheterization (within the last 1-2 hours) this likely represents intravenous contrast. Chest/Abdomen/Pelvis CT 11/09/24 20:53 IMPRESSION: Acute fracture involving the anterolateral margin of the right sixth rib, likely from patient's CPR. No additional acute findings within the chest, abdomen or pelvis, as detailed above. Abdomen X-Ray 11/10/24 16:50 IMPRESSION: NG tube in stomach Chest X-Ray 11/11/24 06:32 IMPRESSION: Redemonstration of a right-sided pneumothorax, increased in size from previous examination, now approximately 15%. The left lung is fully inflated. Findings suggesting pneumomediastinum. Small left-sided pleural effusion. The remainder of the lungs are clear. Remaining supportive lines and tubes in good position. Labs Labs: Laboratory Results - last 24 hr 11/10/24 11/10/24 11/10/24 10:09 11:00 11:49 WBC RBC Hgb Hct MCV MCH MCHC RDW Plt Count MPV Immature Gran % (Auto) Neut % (Auto) Lymph % (Auto) [place] % (Auto) Eos % (Auto) Baso % (Auto) Lymph # (Auto) [place] # (Auto) Eos # (Auto) Baso # (Auto) Abs Immat Gran (auto) Absolute Neuts (auto) Absolute Nucleated RBC Nucleated RBC % PT INR APTT Puncture Site ABG pH ABG pCO2 ABG pO2 ABG PO2/FiO2 Ratio ABG HCO3 ABG O2 Saturation ABG O2 Content ABG Base Excess A-a Gradient Oxyhemoglobin Carboxyhemoglobin Methemoglobin Reduced Hemoglobin Total Hemoglobin O2 Delivery Device O2 Liters/Min Minute Volume Vent Rate Vent Mode FiO2 Tidal Volume PEEP Peak Inspir Pressure Pressure Support Sodium Potassium Chloride Carbon Dioxide Anion Gap BUN Creatinine Estim Creat Clear Calc Estimated GFR Glucose POC Capillary Glucose 118 H 106 H 100 Lactic Acid Calcium Phosphorus Magnesium Total Bilirubin AST ALT Alkaline Phosphatase Total Creatine Kinase Total Protein Albumin Triglycerides Nasal MRSA (PCR) 11/10/24 11/10/24 11/10/24 11:53 12:52 13:55 WBC RBC Hgb Hct MCV MCH MCHC RDW Plt Count MPV Immature Gran % (Auto) Neut % (Auto) Lymph % (Auto) [place] % (Auto) Eos % (Auto) Baso % (Auto) Lymph # (Auto) [place] # (Auto) Eos # (Auto) Baso # (Auto) Abs Immat Gran (auto) Absolute Neuts (auto) Absolute Nucleated RBC Nucleated RBC % PT INR APTT Puncture Site ABG pH ABG pCO2 ABG pO2 ABG PO2/FiO2 Ratio ABG HCO3 ABG O2 Saturation ABG O2 Content ABG Base Excess A-a Gradient Oxyhemoglobin Carboxyhemoglobin Methemoglobin Reduced Hemoglobin Total Hemoglobin O2 Delivery Device O2 Liters/Min Minute Volume Vent Rate Vent Mode FiO2 Tidal Volume PEEP Peak Inspir Pressure Pressure Support Sodium 137 Potassium 3.9 Chloride 103 Carbon Dioxide 27 Anion Gap 7 BUN 19 Creatinine 1.12 Estim Creat Clear Calc 67 Estimated GFR > 60 Glucose 126 H POC Capillary Glucose 108 H 137 H Lactic Acid 1.7 Calcium 8.1 L Phosphorus 3.5 Magnesium 1.8 Total Bilirubin AST ALT Alkaline Phosphatase Total Creatine Kinase 790 H Total Protein Albumin Triglycerides Nasal MRSA (PCR) 11/10/24 11/10/24 11/10/24 14:15 15:43 15:57 WBC RBC Hgb Hct MCV MCH MCHC RDW Plt Count MPV Immature Gran % (Auto) Neut % (Auto) Lymph % (Auto) [place] % (Auto) Eos % (Auto) Baso % (Auto) Lymph # (Auto) [place] # (Auto) Eos # (Auto) Baso # (Auto) Abs Immat Gran (auto) Absolute Neuts (auto) Absolute Nucleated RBC Nucleated RBC % PT INR APTT Puncture Site ABG pH ABG pCO2 ABG pO2 ABG PO2/FiO2 Ratio ABG HCO3 ABG O2 Saturation ABG O2 Content ABG Base Excess A-a Gradient Oxyhemoglobin Carboxyhemoglobin Methemoglobin Reduced Hemoglobin Total Hemoglobin O2 Delivery Device O2 Liters/Min Minute Volume Vent Rate Vent Mode FiO2 Tidal Volume PEEP Peak Inspir Pressure Pressure Support Sodium Potassium Chloride Carbon Dioxide Anion Gap BUN Creatinine Estim Creat Clear Calc Estimated GFR Glucose POC Capillary Glucose 127 H 126 H Lactic Acid Calcium Phosphorus Magnesium Total Bilirubin AST ALT Alkaline Phosphatase Total Creatine Kinase Total Protein Albumin Triglycerides Nasal MRSA (PCR) Not detected 11/10/24 11/10/24 11/10/24 17:25 18:20 18:32 WBC 16.3 H RBC 3.15 L Hgb 10.3 L Hct 31.2 L MCV 99.0 MCH 32.7 MCHC 33.0 RDW 12.6 Plt Count 186 MPV 9.3 Immature Gran % (Auto) Neut % (Auto) Lymph % (Auto) [place] % (Auto) Eos % (Auto) Baso % (Auto) Lymph # (Auto) [place] # (Auto) Eos # (Auto) Baso # (Auto) Abs Immat Gran (auto) Absolute Neuts (auto) Absolute Nucleated RBC Nucleated RBC % PT 15.2 H INR 1.2 APTT 27.3 Puncture Site ABG pH ABG pCO2 ABG pO2 ABG PO2/FiO2 Ratio ABG HCO3 ABG O2 Saturation ABG O2 Content ABG Base Excess A-a Gradient Oxyhemoglobin Carboxyhemoglobin Methemoglobin Reduced Hemoglobin Total Hemoglobin O2 Delivery Device O2 Liters/Min Minute Volume Vent Rate Vent Mode FiO2 Tidal Volume PEEP Peak Inspir Pressure Pressure Support Sodium Potassium Chloride Carbon Dioxide Anion Gap BUN Creatinine Estim Creat Clear Calc Estimated GFR Glucose POC Capillary Glucose 137 H 145 H Lactic Acid 2.8 H Calcium Phosphorus Magnesium Total Bilirubin AST ALT Alkaline Phosphatase Total Creatine Kinase 735 H Total Protein Albumin Triglycerides 120 Nasal MRSA (PCR) 11/10/24 11/10/24 11/10/24 19:39 20:28 20:32 WBC RBC Hgb Hct MCV MCH MCHC RDW Plt Count MPV Immature Gran % (Auto) Neut % (Auto) Lymph % (Auto) [place] % (Auto) Eos % (Auto) Baso % (Auto) Lymph # (Auto) [place] # (Auto) Eos # (Auto) Baso # (Auto) Abs Immat Gran (auto) Absolute Neuts (auto) Absolute Nucleated RBC Nucleated RBC % PT INR APTT Puncture Site ABG pH ABG pCO2 ABG pO2 ABG PO2/FiO2 Ratio ABG HCO3 ABG O2 Saturation ABG O2 Content ABG Base Excess A-a Gradient Oxyhemoglobin Carboxyhemoglobin Methemoglobin Reduced Hemoglobin Total Hemoglobin O2 Delivery Device O2 Liters/Min Minute Volume Vent Rate Vent Mode FiO2 Tidal Volume PEEP Peak Inspir Pressure Pressure Support Sodium 139 Potassium 4.2 Chloride 105 Carbon Dioxide 27 Anion Gap 7 BUN 22 H Creatinine 1.11 Estim Creat Clear Calc 68 Estimated GFR > 60 Glucose 155 H POC Capillary Glucose 142 H 149 H Lactic Acid Calcium 7.7 L Phosphorus 3.5 Magnesium 2.0 Total Bilirubin AST ALT Alkaline Phosphatase Total Creatine Kinase Total Protein Albumin Triglycerides Nasal MRSA (PCR) 11/10/24 11/10/24 11/10/24 21:44 22:32 22:34 WBC RBC Hgb Hct MCV MCH MCHC RDW Plt Count MPV Immature Gran % (Auto) Neut % (Auto) Lymph % (Auto) [place] % (Auto) Eos % (Auto) Baso % (Auto) Lymph # (Auto) [place] # (Auto) Eos # (Auto) Baso # (Auto) Abs Immat Gran (auto) Absolute Neuts (auto) Absolute Nucleated RBC Nucleated RBC % PT INR APTT Puncture Site ABG pH ABG pCO2 ABG pO2 ABG PO2/FiO2 Ratio ABG HCO3 ABG O2 Saturation ABG O2 Content ABG Base Excess A-a Gradient Oxyhemoglobin Carboxyhemoglobin Methemoglobin Reduced Hemoglobin Total Hemoglobin O2 Delivery Device O2 Liters/Min Minute Volume Vent Rate Vent Mode FiO2 Tidal Volume PEEP Peak Inspir Pressure Pressure Support Sodium Potassium Chloride Carbon Dioxide Anion Gap BUN Creatinine Estim Creat Clear Calc Estimated GFR Glucose POC Capillary Glucose 154 H 152 H Lactic Acid 2.3 H Calcium Phosphorus Magnesium Total Bilirubin AST ALT Alkaline Phosphatase Total Creatine Kinase 678 H Total Protein Albumin Triglycerides Nasal MRSA (PCR) 11/10/24 11/11/24 11/11/24 23:46 00:40 01:36 WBC RBC Hgb Hct MCV MCH MCHC RDW Plt Count MPV Immature Gran % (Auto) Neut % (Auto) Lymph % (Auto) [place] % (Auto) Eos % (Auto) Baso % (Auto) Lymph # (Auto) [place] # (Auto) Eos # (Auto) Baso # (Auto) Abs Immat Gran (auto) Absolute Neuts (auto) Absolute Nucleated RBC Nucleated RBC % PT INR APTT Puncture Site ABG pH ABG pCO2 ABG pO2 ABG PO2/FiO2 Ratio ABG HCO3 ABG O2 Saturation ABG O2 Content ABG Base Excess A-a Gradient Oxyhemoglobin Carboxyhemoglobin Methemoglobin Reduced Hemoglobin Total Hemoglobin O2 Delivery Device O2 Liters/Min Minute Volume Vent Rate Vent Mode FiO2 Tidal Volume PEEP Peak Inspir Pressure Pressure Support Sodium Potassium Chloride Carbon Dioxide Anion Gap BUN Creatinine Estim Creat Clear Calc Estimated GFR Glucose POC Capillary Glucose 143 H 156 H 134 H Lactic Acid Calcium Phosphorus Magnesium Total Bilirubin AST ALT Alkaline Phosphatase Total Creatine Kinase Total Protein Albumin Triglycerides Nasal MRSA (PCR) 11/11/24 11/11/24 11/11/24 02:38 05:09 05:14 WBC 9.8 RBC 3.06 L Hgb 10.1 L Hct 30.5 L MCV 99.7 MCH 33.0 MCHC 33.1 RDW 12.4 Plt Count 154 MPV 9.4 Immature Gran % (Auto) 0.2 Neut % (Auto) 84.5 H Lymph % (Auto) 5.9 L [place] % (Auto) 8.5 Eos % (Auto) 0.4 Baso % (Auto) 0.5 Lymph # (Auto) 0.58 L [place] # (Auto) 0.8 H Eos # (Auto) 0.0 Baso # (Auto) 0.1 Abs Immat Gran (auto) 0.02 Absolute Neuts (auto) 8.3 H Absolute Nucleated RBC 0.000 Nucleated RBC % 0.0 PT 14.6 INR 1.1 APTT 29.1 Puncture Site Left radial ABG pH 7.423 ABG pCO2 40.6 ABG pO2 64.0 L ABG PO2/FiO2 Ratio 1.07 ABG HCO3 25.9 ABG O2 Saturation 92.9 L ABG O2 Content 14.6 L ABG Base Excess 1.4 A-a Gradient 319.1 Oxyhemoglobin 91.8 Carboxyhemoglobin 0.0 Methemoglobin 0.3 Reduced Hemoglobin 7.9 H Total Hemoglobin 11.3 L O2 Delivery Device Ventilator O2 Liters/Min Not Reportable Minute Volume Not Reportable Vent Rate 22 Vent Mode Cmv FiO2 60 Tidal Volume 480 PEEP 5 Peak Inspir Pressure Not Reportable Pressure Support Not Reportable Sodium 139 Potassium 3.7 Chloride 104 Carbon Dioxide 27 Anion Gap 8 BUN 21 H Creatinine 1.13 Estim Creat Clear Calc 67 Estimated GFR > 60 Glucose 128 H POC Capillary Glucose 133 H Lactic Acid 2.0 Calcium 7.8 L Phosphorus 2.8 Magnesium 2.0 Total Bilirubin 0.7 AST 86 H ALT 51 H Alkaline Phosphatase 43 Total Creatine Kinase 684 H Total Protein 6.0 L Albumin 3.4 L Triglycerides Nasal MRSA (PCR) Quality VTE Prophylaxis VTE prophylaxis: mechanical ordered
--- NOTE | 2024-11-11 10:39 | P.PNCA_ITS ---
Progress Note: A&P Assessment and Plan (1) ST elevation myocardial infarction (STEMI): Code(s): I21.3 - ST elevation (STEMI) myocardial infarction of unspecified site Status: Acute Plan 1. Inferolateral STEMI 11/09. Acute thrombotic subtotal occlusion of the mid RCA s/p successful PCI with aspiration thrombectomy and 3.5mm x 30mm Ronald NELLA. Distal thrombus embolization to the distal RPDA. The mid LAD is heavily calcified and has diffuse disease with an 80-90% stenosis in the mid-distal LAD. Will need staged revascularization to the LAD. 2. Cardiac arrest, presumably VFIB 3. Possible atrial fibrillation. Initial EKG showed STEMI with possible AFIB, repeat EKG after PCI shows sinus rhythm. Likely ischemic AFIB. Given no recurrence of AFIB after PCI, will not anticoagulate. 4. Ischemic cardiomyopathy with LVEF 35-40% per TTE 11/10. 5. Hypertension 6. Acute respiratory failure, requiring mechanical ventilation. 7. DIC, now resolved 8. Bilateral tension pneumothorax. S/p left chest tube 11/10. PLAN: -ASA 81mg once daily indefinitely. -Brilinta 90mg BID for at least 1 year. -High intensity statin. -On hypothermia protocol. -Will hold off on heart failure GDMT at this time given pressor requirement overnight. -Plan for right sided chest tube today. Left side chest tube placed 11/10. Management as per Surgery. -Will need staged revascularization to LAD. -Awaiting transfer to [place] for higher level of care. Recommendations and plan discussed with ICU Physician. Subjective Date/time seen: 11/11/24 10:39 Interval history: Reason for visit: STEMI, cardiac arrest HPI: Ralf is a 68 year old male with hypertension, neuropathy, erectile dysfunction who presented to [place] with cardiac arrest, STEMI. Patient intubated therefore unable to obtain any history from the patient. History obtained from chart and medical team. Apparently he had been having chest pain over past week. May have been choking on some food -- piece of bread was removed during the intubation process. At some point, he went into cardiac arrest (uncertain what the initial arresting rhythm was). Had some VF during the arrest, for which he was defibrillated once. Chest compressions for about 10 minutes. EMS EKG shows inferolateral STEMI. EKG in the ED confirms inferolateral STEMI. Cath team activated. Date of service 11/10: Integrilin drip stopped shortly after being admitted to ICU as patient bleeding from multiple orifices. Remains on cooling protocol. Awaiting transfer to [place] for higher level of care. Date of service 11/11: Had acute respiratory distress on ventilator yesterday afternoon, found with large mucus plug. Then found to have large left pneumothorax s/p emergent placement of left chest tube. Now has right sided pneumothorax. Review of Systems Review of Systems: ROS unobtainable: Yes unobtainable due to endotracheal tube and unobtainable due to medical condition Exam Const: Other: Critically ill male, intubated. HENMT: Other: OETT in place Resp: Other: On mechanical ventilation Cardio: Rate: regular rate Rhythm: regular rhythm Heart sounds: no murmurs Neuro: Other: Sedated Objective Data Vital Signs Vital Signs: Vital Signs - 24 hr 11/10/24 11:00 11/10/24 11:00 11/10/24 11:00 Temperature 37.9 C H 37.9 C H Pulse Rate 80 80 80 Respiratory Rate 22 H 22 H 22 H Blood Pressure 109/73 109/73 Pulse Oximetry 94 94 Oxygen Delivery Fraction of Inspired Oxygen 11/10/24 11:30 11/10/24 11:31 11/10/24 12:00 Temperature Pulse Rate 83 83 Respiratory Rate 22 H Blood Pressure Pulse Oximetry 95 Oxygen Delivery Mechanical Ventilation Fraction of Inspired Oxygen 45 45 11/10/24 12:00 11/10/24 12:00 11/10/24 12:00 Temperature Pulse Rate 83 83 Respiratory Rate 22 H 22 H Blood Pressure Pulse Oximetry 96 Oxygen Delivery Mechanical Ventilation Fraction of Inspired Oxygen 45 11/10/24 12:00 11/10/24 12:00 11/10/24 12:30 Temperature 37.8 C H Pulse Rate 83 84 88 Respiratory Rate 22 H 22 H Blood Pressure 98/69 L Pulse Oximetry 92 Oxygen Delivery Fraction of Inspired Oxygen 11/10/24 13:00 11/10/24 13:00 11/10/24 13:00 Temperature 38.3 C H Pulse Rate 98 98 98 Respiratory Rate 15 22 H 22 H Blood Pressure 124/75 Pulse Oximetry 95 Oxygen Delivery Fraction of Inspired Oxygen 11/10/24 13:00 11/10/24 13:30 11/10/24 13:43 Temperature 37.2 C Pulse Rate 98 143 H 120 H Respiratory Rate 22 H 22 H Blood Pressure 124/75 Pulse Oximetry 95 86 L Oxygen Delivery Mechanical Ventilation Fraction of Inspired Oxygen 100 11/10/24 14:00 11/10/24 14:00 11/10/24 14:00 Temperature 37.0 C 37.0 C Pulse Rate 133 H 133 H 133 H Respiratory Rate 20 22 H 22 H Blood Pressure 106/76 106/76 Pulse Oximetry 89 L 88 L Oxygen Delivery Fraction of Inspired Oxygen 11/10/24 14:00 11/10/24 14:06 11/10/24 14:06 Temperature Pulse Rate 133 H 125 H 125 H Respiratory Rate 22 H Blood Pressure Pulse Oximetry 88 L Oxygen Delivery Mechanical Ventilation Fraction of Inspired Oxygen 100 11/10/24 14:22 11/10/24 14:22 11/10/24 14:48 Temperature Pulse Rate 116 H 116 H Respiratory Rate 22 H Blood Pressure Pulse Oximetry 93 Oxygen Delivery Mechanical Ventilation Fraction of Inspired Oxygen 100 100 11/10/24 15:00 11/10/24 15:00 11/10/24 15:00 Temperature 36.9 C Pulse Rate 103 H 103 H 103 H Respiratory Rate 22 H 22 H 22 H Blood Pressure 98/77 L 98/77 L Pulse Oximetry 88 L 90 Oxygen Delivery Fraction of Inspired Oxygen 11/10/24 15:45 11/10/24 16:00 11/10/24 16:00 Temperature 36.1 C L Pulse Rate 86 102 H 102 H Respiratory Rate 22 H 22 H 22 H Blood Pressure 95/74 L Pulse Oximetry 100 Oxygen Delivery Fraction of Inspired Oxygen 11/10/24 16:00 11/10/24 16:00 11/10/24 16:00 Temperature Pulse Rate 102 H Respiratory Rate 22 H Blood Pressure 95/74 L Pulse Oximetry 100 100 Oxygen Delivery Mechanical Ventilation Fraction of Inspired Oxygen 100 100 11/10/24 16:00 11/10/24 16:00 11/10/24 16:13 Temperature Pulse Rate 102 H 93 108 H Respiratory Rate 22 H Blood Pressure Pulse Oximetry 100 Oxygen Delivery Mechanical Ventilation Fraction of Inspired Oxygen 100 11/10/24 17:00 11/10/24 17:00 11/10/24 17:00 Temperature 36.1 C L Pulse Rate 84 84 84 Respiratory Rate 22 H 22 H 22 H Blood Pressure 91/68 L 91/68 L Pulse Oximetry 100 100 Oxygen Delivery Fraction of Inspired Oxygen 11/10/24 17:16 11/10/24 17:41 11/10/24 18:00 Temperature 36.2 C L Pulse Rate 84 78 Respiratory Rate 22 H Blood Pressure 88/70 L 103/79 Pulse Oximetry 99 Oxygen Delivery Fraction of Inspired Oxygen 80 11/10/24 18:00 11/10/24 18:00 11/10/24 18:00 Temperature 36.2 C L Pulse Rate 78 78 80 Respiratory Rate 22 H 22 H 22 H Blood Pressure 107/74 Pulse Oximetry 99 Oxygen Delivery Fraction of Inspired Oxygen 11/10/24 18:00 11/10/24 18:00 11/10/24 18:00 Temperature Pulse Rate 78 80 71 Respiratory Rate 22 H Blood Pressure 107/74 Pulse Oximetry Oxygen Delivery Fraction of Inspired Oxygen 11/10/24 18:31 11/10/24 18:47 11/10/24 18:47 Temperature Pulse Rate 77 77 Respiratory Rate 22 H 22 H Blood Pressure Pulse Oximetry Oxygen Delivery Fraction of Inspired Oxygen 70 11/10/24 18:48 11/10/24 19:00 11/10/24 19:00 Temperature 35.7 C L 35.6 C L Pulse Rate 76 68 68 Respiratory Rate 22 H 22 H Blood Pressure 95/69 L 103/74 107/76 Pulse Oximetry 99 98 Oxygen Delivery Fraction of Inspired Oxygen 11/10/24 19:45 11/10/24 20:00 11/10/24 20:00 Temperature Pulse Rate 66 66 66 Respiratory Rate 22 H 22 H 22 H Blood Pressure Pulse Oximetry Oxygen Delivery Fraction of Inspired Oxygen 11/10/24 20:00 11/10/24 20:00 11/10/24 20:00 Temperature 35.6 C L Pulse Rate 66 66 66 Respiratory Rate 22 H 22 H Blood Pressure 102/74 102/74 Pulse Oximetry 99 Oxygen Delivery Fraction of Inspired Oxygen 11/10/24 20:00 11/10/24 20:00 11/10/24 20:00 Temperature 35.6 C L Pulse Rate 66 66 Respiratory Rate 22 H 22 H Blood Pressure 102/74 Pulse Oximetry 99 99 Oxygen Delivery Mechanical Ventilation Fraction of Inspired Oxygen 70 70 11/10/24 20:00 11/10/24 20:45 11/10/24 21:00 Temperature 36.1 C L Pulse Rate 67 68 71 Respiratory Rate 22 H 22 H Blood Pressure 105/72 Pulse Oximetry 98 Oxygen Delivery Fraction of Inspired Oxygen 11/10/24 21:12 11/10/24 21:22 11/10/24 21:30 Temperature Pulse Rate 72 72 75 Respiratory Rate 22 H 22 H Blood Pressure Pulse Oximetry 98 Oxygen Delivery Mechanical Ventilation Fraction of Inspired Oxygen 70 11/10/24 21:40 11/10/24 21:52 11/10/24 22:00 Temperature Pulse Rate 80 79 80 Respiratory Rate 22 H 80 H 22 H Blood Pressure Pulse Oximetry Oxygen Delivery Fraction of Inspired Oxygen 11/10/24 22:00 11/10/24 22:00 11/10/24 22:00 Temperature Pulse Rate 80 80 80 Respiratory Rate 22 H 22 H Blood Pressure 98/66 L Pulse Oximetry Oxygen Delivery Fraction of Inspired Oxygen 11/10/24 22:00 11/10/24 22:00 11/10/24 22:45 Temperature 36.2 C L Pulse Rate 80 80 72 Respiratory Rate 22 H 22 H Blood Pressure 98/66 L Pulse Oximetry 97 Oxygen Delivery Fraction of Inspired Oxygen 11/10/24 22:50 11/10/24 22:55 11/10/24 23:00 Temperature 35.5 C L Pulse Rate 73 72 72 Respiratory Rate 22 H 22 H 22 H Blood Pressure 112/75 109/75 107/73 Pulse Oximetry 98 99 99 Oxygen Delivery Fraction of Inspired Oxygen 11/10/24 23:00 11/10/24 23:01 11/10/24 23:05 Temperature Pulse Rate 73 72 71 Respiratory Rate 22 H 22 H 22 H Blood Pressure 107/73 106/71 Pulse Oximetry 99 99 99 Oxygen Delivery Fraction of Inspired Oxygen 11/10/24 23:10 11/10/24 23:15 11/10/24 23:16 Temperature Pulse Rate 69 68 68 Respiratory Rate 22 H 22 H 22 H Blood Pressure 105/73 106/75 Pulse Oximetry 99 99 99 Oxygen Delivery Fraction of Inspired Oxygen 11/10/24 23:20 11/10/24 23:22 11/10/24 23:25 Temperature Pulse Rate 67 69 68 Respiratory Rate 22 H 22 H Blood Pressure 103/72 107/74 Pulse Oximetry 99 99 100 Oxygen Delivery Mechanical Ventilation Fraction of Inspired Oxygen 70 11/10/24 23:30 11/10/24 23:31 11/10/24 23:35 Temperature Pulse Rate 68 69 68 Respiratory Rate 22 H 22 H 22 H Blood Pressure 104/72 101/71 Pulse Oximetry 100 100 100 Oxygen Delivery Fraction of Inspired Oxygen 11/10/24 23:40 11/10/24 23:45 11/10/24 23:46 Temperature Pulse Rate 68 70 71 Respiratory Rate 22 H 22 H 22 H Blood Pressure 101/71 109/73 Pulse Oximetry 100 100 100 Oxygen Delivery Fraction of Inspired Oxygen 11/10/24 23:50 11/10/24 23:55 11/11/24 00:00 Temperature 35.4 C L Pulse Rate 71 70 73 Respiratory Rate 22 H 22 H 22 H Blood Pressure 106/78 104/72 87/60 L Pulse Oximetry 100 100 98 Oxygen Delivery Fraction of Inspired Oxygen 11/11/24 00:00 11/11/24 00:00 11/11/24 00:00 Temperature Pulse Rate 73 73 73 Respiratory Rate 22 H 22 H Blood Pressure 87/60 L Pulse Oximetry Oxygen Delivery Fraction of Inspired Oxygen 11/11/24 00:00 11/11/24 00:00 11/11/24 00:00 Temperature Pulse Rate 73 73 Respiratory Rate 22 H 22 H Blood Pressure Pulse Oximetry 98 Oxygen Delivery Mechanical Ventilation Fraction of Inspired Oxygen 70 70 11/11/24 00:00 11/11/24 00:00 11/11/24 00:00 Temperature 35.4 C L Pulse Rate 73 76 70 Respiratory Rate 22 H 22 H Blood Pressure 87/60 L 107/71 Pulse Oximetry 98 100 Oxygen Delivery Fraction of Inspired Oxygen 11/11/24 00:01 11/11/24 00:06 11/11/24 00:10 Temperature Pulse Rate 71 75 73 Respiratory Rate 20 22 H 22 H Blood Pressure 87/60 L 102/70 Pulse Oximetry 100 100 98 Oxygen Delivery Fraction of Inspired Oxygen 11/11/24 00:15 11/11/24 00:16 11/11/24 00:20 Temperature Pulse Rate 73 74 74 Respiratory Rate 22 H 22 H 22 H Blood Pressure 100/69 98/69 L Pulse Oximetry 97 97 97 Oxygen Delivery Fraction of Inspired Oxygen 11/11/24 00:25 11/11/24 00:30 11/11/24 00:31 Temperature Pulse Rate 75 76 75 Respiratory Rate 20 22 H 22 H Blood Pressure 101/69 99/69 L Pulse Oximetry 97 97 97 Oxygen Delivery Fraction of Inspired Oxygen 11/11/24 00:35 11/11/24 00:40 11/11/24 00:40 Temperature Pulse Rate 76 77 Respiratory Rate 20 22 H Blood Pressure 101/70 104/72 Pulse Oximetry 97 99 Oxygen Delivery Fraction of Inspired Oxygen 65 11/11/24 00:45 11/11/24 00:45 11/11/24 00:45 Temperature Pulse Rate 78 78 79 Respiratory Rate 22 H 22 H 22 H Blood Pressure 105/71 Pulse Oximetry 98 Oxygen Delivery Fraction of Inspired Oxygen 11/11/24 00:46 11/11/24 00:50 11/11/24 00:55 Temperature Pulse Rate 79 78 79 Respiratory Rate 22 H 22 H 22 H Blood Pressure 106/75 105/70 Pulse Oximetry 97 97 98 Oxygen Delivery Fraction of Inspired Oxygen 11/11/24 01:00 11/11/24 01:00 11/11/24 01:01 Temperature 36.7 C Pulse Rate 87 80 80 Respiratory Rate 22 H 22 H 22 H Blood Pressure 111/75 110/73 Pulse Oximetry 97 97 98 Oxygen Delivery Fraction of Inspired Oxygen 11/11/24 01:05 11/11/24 01:10 11/11/24 01:15 Temperature Pulse Rate 81 82 83 Respiratory Rate 22 H 22 H 22 H Blood Pressure 108/78 112/75 114/78 Pulse Oximetry 97 97 98 Oxygen Delivery Fraction of Inspired Oxygen 11/11/24 01:16 11/11/24 01:20 11/11/24 01:25 Temperature Pulse Rate 82 83 84 Respiratory Rate 22 H 22 H 22 H Blood Pressure 110/74 115/78 Pulse Oximetry 97 98 98 Oxygen Delivery Fraction of Inspired Oxygen 11/11/24 01:30 11/11/24 01:30 11/11/24 01:30 Temperature Pulse Rate 87 87 84 Respiratory Rate 22 H 22 H Blood Pressure 111/75 111/75 Pulse Oximetry 97 Oxygen Delivery Fraction of Inspired Oxygen 11/11/24 01:31 11/11/24 01:35 11/11/24 01:40 Temperature Pulse Rate 85 88 88 Respiratory Rate 22 H 22 H Blood Pressure 110/74 110/74 Pulse Oximetry 97 98 Oxygen Delivery Fraction of Inspired Oxygen 11/11/24 01:41 11/11/24 01:45 11/11/24 01:46 Temperature Pulse Rate 88 88 89 Respiratory Rate 23 H 20 22 H Blood Pressure 106/76 107/70 Pulse Oximetry 97 96 96 Oxygen Delivery Fraction of Inspired Oxygen 11/11/24 02:00 11/11/24 02:00 11/11/24 02:00 Temperature Pulse Rate 89 89 89 Respiratory Rate 22 H 22 H 22 H Blood Pressure 106/73 Pulse Oximetry 97 Oxygen Delivery Fraction of Inspired Oxygen 11/11/24 02:00 11/11/24 02:00 11/11/24 02:01 Temperature Pulse Rate 89 89 90 Respiratory Rate 22 H 22 H Blood Pressure 106/73 Pulse Oximetry 97 Oxygen Delivery Fraction of Inspired Oxygen 11/11/24 02:10 11/11/24 02:15 11/11/24 02:15 Temperature 37.2 C 37.2 C Pulse Rate 89 89 90 Respiratory Rate 22 H 22 H Blood Pressure 106/73 102/70 Pulse Oximetry 97 97 Oxygen Delivery Fraction of Inspired Oxygen 11/11/24 02:15 11/11/24 02:16 11/11/24 02:30 Temperature Pulse Rate 89 90 90 Respiratory Rate 22 H 22 H 22 H Blood Pressure 102/70 104/73 Pulse Oximetry 97 97 97 Oxygen Delivery Fraction of Inspired Oxygen 11/11/24 02:31 11/11/24 02:34 11/11/24 02:40 Temperature Pulse Rate 92 93 94 Respiratory Rate 22 H 22 H 22 H Blood Pressure Pulse Oximetry 98 Oxygen Delivery Fraction of Inspired Oxygen 11/11/24 02:40 11/11/24 02:41 11/11/24 02:45 Temperature Pulse Rate 72 94 96 Respiratory Rate 22 H 22 H Blood Pressure Pulse Oximetry 100 Oxygen Delivery Mechanical Ventilation Fraction of Inspired Oxygen 65 11/11/24 02:45 11/11/24 02:46 11/11/24 03:00 Temperature 37.6 C H Pulse Rate 97 98 99 Respiratory Rate 22 H 21 H 19 Blood Pressure 107/73 108/70 Pulse Oximetry 97 97 97 Oxygen Delivery Fraction of Inspired Oxygen 11/11/24 03:01 11/11/24 03:15 11/11/24 03:24 Temperature Pulse Rate 99 108 H 106 H Respiratory Rate 19 18 14 Blood Pressure 112/77 Pulse Oximetry 97 94 92 Oxygen Delivery Fraction of Inspired Oxygen 11/11/24 03:30 11/11/24 03:30 11/11/24 03:30 Temperature 37.7 C H Pulse Rate 114 H 114 H Respiratory Rate 23 H 23 H Blood Pressure Pulse Oximetry Oxygen Delivery Fraction of Inspired Oxygen 11/11/24 03:30 11/11/24 03:30 11/11/24 03:30 Temperature Pulse Rate 111 H 113 H Respiratory Rate 94 H 22 H Blood Pressure 112/79 Pulse Oximetry 22 L 96 Oxygen Delivery Mechanical Ventilation Fraction of Inspired Oxygen 60 60 11/11/24 03:31 11/11/24 03:45 11/11/24 03:46 Temperature Pulse Rate 111 H 105 H 105 H Respiratory Rate 20 15 14 Blood Pressure 108/72 Pulse Oximetry 97 90 91 Oxygen Delivery Fraction of Inspired Oxygen 11/11/24 04:00 11/11/24 04:00 11/11/24 04:00 Temperature Pulse Rate 104 H 104 H 104 H Respiratory Rate 22 H 22 H 22 H Blood Pressure 112/70 Pulse Oximetry 92 Oxygen Delivery Fraction of Inspired Oxygen 11/11/24 04:00 11/11/24 04:00 11/11/24 04:00 Temperature Pulse Rate 104 H 104 H 104 H Respiratory Rate 22 H Blood Pressure 112/70 Pulse Oximetry Oxygen Delivery Fraction of Inspired Oxygen 11/11/24 04:00 11/11/24 04:01 11/11/24 04:15 Temperature Pulse Rate 104 H 104 H 103 H Respiratory Rate 16 15 17 Blood Pressure 112/70 115/74 Pulse Oximetry 92 92 92 Oxygen Delivery Fraction of Inspired Oxygen 11/11/24 04:16 11/11/24 04:30 11/11/24 04:30 Temperature Pulse Rate 103 H 102 H 105 H Respiratory Rate 14 15 Blood Pressure 118/70 118/70 Pulse Oximetry 93 93 Oxygen Delivery Fraction of Inspired Oxygen 11/11/24 04:31 11/11/24 04:45 11/11/24 04:46 Temperature Pulse Rate 104 H 104 H 103 H Respiratory Rate 15 22 H 22 H Blood Pressure 108/72 Pulse Oximetry 92 93 92 Oxygen Delivery Fraction of Inspired Oxygen 11/11/24 05:00 11/11/24 05:01 11/11/24 05:24 Temperature 37.8 C H Pulse Rate 102 H 102 H 106 H Respiratory Rate 23 H 20 25 H Blood Pressure 103/71 103/71 Pulse Oximetry 92 92 92 Oxygen Delivery Fraction of Inspired Oxygen 11/11/24 05:27 11/11/24 06:00 11/11/24 06:00 Temperature 37.8 C H Pulse Rate 103 H 101 H 101 H Respiratory Rate 23 H Blood Pressure 108/78 Pulse Oximetry 93 94 Oxygen Delivery Mechanical Ventilation Fraction of Inspired Oxygen 60 11/11/24 06:00 11/11/24 06:00 11/11/24 06:00 Temperature Pulse Rate 101 H 101 H 101 H Respiratory Rate 23 H 23 H Blood Pressure 108/78 Pulse Oximetry Oxygen Delivery Fraction of Inspired Oxygen 11/11/24 06:00 11/11/24 06:30 11/11/24 07:00 Temperature Pulse Rate 101 H 100 100 Respiratory Rate 23 H Blood Pressure 115/73 108/72 Pulse Oximetry Oxygen Delivery Fraction of Inspired Oxygen 11/11/24 08:00 11/11/24 08:00 11/11/24 08:00 Temperature 37.7 C H Pulse Rate 98 98 Respiratory Rate 22 H 22 H Blood Pressure 108/69 Pulse Oximetry 94 Oxygen Delivery Fraction of Inspired Oxygen 60 11/11/24 08:00 11/11/24 08:00 11/11/24 08:00 Temperature Pulse Rate 98 98 98 Respiratory Rate 22 H 22 H Blood Pressure 108/69 Pulse Oximetry Oxygen Delivery Fraction of Inspired Oxygen 11/11/24 08:00 11/11/24 08:00 11/11/24 08:57 Temperature Pulse Rate 99 104 H Respiratory Rate Blood Pressure Pulse Oximetry 94 93 Oxygen Delivery Mechanical Ventilation Mechanical Ventilation Fraction of Inspired Oxygen 60 60 11/11/24 08:57 11/11/24 09:00 11/11/24 09:00 Temperature Pulse Rate 104 H 103 H 103 H Respiratory Rate 25 H 22 H 22 H Blood Pressure Pulse Oximetry Oxygen Delivery Fraction of Inspired Oxygen 11/11/24 09:16 11/11/24 10:00 11/11/24 10:00 Temperature Pulse Rate 103 H 102 H 102 H Respiratory Rate 22 H 22 H Blood Pressure 115/69 Pulse Oximetry Oxygen Delivery Fraction of Inspired Oxygen 11/11/24 10:00 11/11/24 10:00 Temperature Pulse Rate 101 H 100 Respiratory Rate 22 H Blood Pressure Pulse Oximetry Oxygen Delivery Fraction of Inspired Oxygen Intake/Output Intake/Output: Intake & Output 11/08/24 11/09/24 11/10/24 11/11/24 23:59 23:59 23:59 23:59 Intake Total 110.2 1653.8 288.8 Output Total 1654 245 Balance 110.2 -0.2 43.8 Meds/Results Medications: Active Medications Generic Name Dose Route Start Last Admin Trade Name Freq PRN Reason Stop Dose Admin Albuterol/Ipratropium 3 ml 03/22/25 14:00 11/11/24 08:53 Ipratropium 0.5 Mg/Albuterol Sulfate 2.5 Mg Ampul.Neb 3 Ml INHALATION 3 ml Q6HRT SAMY Administration Aspirin 81 mg 11/10/24 09:00 11/11/24 08:27 Aspirin 81 Mg Enteric Tablet PO 81 mg QAM SAMY Administration Atorvastatin Calcium 80 mg 11/09/24 17:45 11/11/24 08:27 Atorvastatin 40 Mg Tablet PO 80 mg DAILY SAMY Administration Dextrose 12.5 gm 11/11/24 10:15 Dextrose 50% 25 Gm/50 Ml Syringe IV PUSH PRN PRN Hypoglycemia Protocol Glucagon 1 mg 11/11/24 10:15 Glucagon For Inj 1 Mg Vial IM PRN PRN Hypoglycemia Protocol Glucose 15 gm 11/11/24 10:15 Glucose Oral Gel 15 Gm Of Glucse In 37.5 Gm Tube PO PRN PRN Hypoglycemia Protocol Levetiracetam 500 mg in 100 mls @ 400 mls/hr 11/10/24 09:00 11/11/24 08:42 Keppra Iv IVPB Infused Q12HR SAMY Infusion Fentanyl Citrate 2,500 mcg in 250 mls @ 0 mls/hr 11/09/24 22:35 11/11/24 10:00 Fentanyl 2,500 Mcg/Ns 250 Ml IV CONT 0 mcg/hr .Q0M SAMY 0 mls/hr Titration Protocol Midazolam HCl 100 mg in 100 mls @ 0 mls/hr 11/09/24 22:35 11/11/24 09:00 Versed 100 Mg/Ns 100 Ml IV CONT 0 mg/hr .Q0M SAMY 0 mls/hr Titration Protocol Ceftriaxone Sodium 2 gm in 100 mls @ 200 mls/hr 11/10/24 15:00 11/10/24 16:01 Rocephin 2 Gm/Ns 100 Ml IVPB Infused Q24H SAMY Infusion Azithromycin 500 mg in 250 mls @ 250 mls/hr 11/10/24 16:00 11/10/24 16:31 Zithromax IVPB Infused Q24H SAMY Infusion Propofol 100 mls @ 0 mls/hr 11/10/24 15:45 11/11/24 10:00 Diprivan IV CONT 0 mcg/kg/min .Q0M SAMY 0 mls/hr Titration Protocol 0 MCG/KG/MIN Vancomycin HCl 1,500 mg in 500 mls @ 250 mls/hr 11/11/24 11:00 Vancomycin 1,500 Mg/Ns 500 Ml IVPB Q18H SAMY Norepinephrine Bitartrate 8 mg in 250 mls @ 0 mls/hr 11/10/24 17:05 11/11/24 10:00 Levophed 8 Mg/D5w 250 Ml IV CONT 0 mcg/min .Q0M SAMY 0 mls/hr Titration Protocol Dextrose 1,000 mls @ 100 mls/hr 11/11/24 10:15 Dextrose 5% 1,000 Ml IVPB PRN PRN Hypoglycemia Protocol Insulin Aspart 2 - 5 units 11/11/24 12:00 Insulin Aspart (*Bkc) 100 Units/Ml SUB-Q Q6HR SAMY Protocol Multi-Ingred Cream/Lotion/Oil/Oint 1 applic 11/09/24 21:00 11/11/24 08:27 Mineral Oil/White Petrolatum Ointment EACH EYE 1 applic Q12HR SAMY Administration Multi-Ingred Cream/Lotion/Oil/Oint 1 applic 11/10/24 09:00 11/11/24 08:27 Mineral Oil/White Petrolatum Ointment EACH EYE 1 applic Q12HR SAMY Administration Pantoprazole Sodium 40 mg 11/10/24 21:00 11/11/24 08:27 Pantoprazole Sodium Iv 40 Mg Vial IV PUSH 40 mg Q12HR SAMY Administration Sodium Chloride 10 ml 11/10/24 06:00 11/11/24 05:13 Central Line Flush IV PUSH 10 ml Q8HR SAMY Administration Sodium Chloride 20 ml 11/10/24 03:49 11/10/24 20:46 Central Line Flush IV PUSH 20 ml PRN PRN Administration after blood draws Ticagrelor 90 mg 11/09/24 21:00 11/11/24 08:27 Ticagrelor 90 Mg Tablet PO 90 mg Q12HR SAMY Administration Radiology Results: ITS Impressions Head CT 11/09/24 20:38 Impression: Global intracranial parenchymal edema without acute intracranial hemorrhage or suspicious mass effect, as detailed above. Short-term follow-up is recommended. ADDENDUM: 11/09/24 1030 Increased attenuation within the venous sinuses as well as a visualized intracranial vascular structures initially suggesting increased intravascular density rather than acute intracranial hemorrhage. Given patient's history of recent cardiac catheterization (within the last 1-2 hours) this likely represents intravenous contrast. Chest/Abdomen/Pelvis CT 11/09/24 20:53 IMPRESSION: Acute fracture involving the anterolateral margin of the right sixth rib, likely from patient's CPR. No additional acute findings within the chest, abdomen or pelvis, as detailed above. Abdomen X-Ray 11/10/24 16:50 IMPRESSION: NG tube in stomach Chest X-Ray 11/11/24 06:32 IMPRESSION: Redemonstration of a right-sided pneumothorax, increased in size from previous examination, now approximately 15%. The left lung is fully inflated. Findings suggesting pneumomediastinum. Small left-sided pleural effusion. The remainder of the lungs are clear. Remaining supportive lines and tubes in good position. Labs Labs: Laboratory Results - last 24 hr 11/10/24 11/10/24 11/10/24 11:00 11:49 11:53 WBC RBC Hgb Hct MCV MCH MCHC RDW Plt Count MPV Immature Gran % (Auto) Neut % (Auto) Lymph % (Auto) [place] % (Auto) Eos % (Auto) Baso % (Auto) Lymph # (Auto) [place] # (Auto) Eos # (Auto) Baso # (Auto) Abs Immat Gran (auto) Absolute Neuts (auto) Absolute Nucleated RBC Nucleated RBC % PT INR APTT Puncture Site ABG pH ABG pCO2 ABG pO2 ABG PO2/FiO2 Ratio ABG HCO3 ABG O2 Saturation ABG O2 Content ABG Base Excess A-a Gradient Oxyhemoglobin Carboxyhemoglobin Methemoglobin Reduced Hemoglobin Total Hemoglobin O2 Delivery Device O2 Liters/Min Minute Volume Vent Rate Vent Mode FiO2 Tidal Volume PEEP Peak Inspir Pressure Pressure Support Sodium 137 Potassium 3.9 Chloride 103 Carbon Dioxide 27 Anion Gap 7 BUN 19 Creatinine 1.12 Estim Creat Clear Calc 67 Estimated GFR > 60 Glucose 126 H POC Capillary Glucose 106 H 100 Lactic Acid 1.7 Calcium 8.1 L Phosphorus 3.5 Magnesium 1.8 Total Bilirubin AST ALT Alkaline Phosphatase Total Creatine Kinase 790 H Total Protein Albumin Triglycerides Nasal MRSA (PCR) 11/10/24 11/10/24 11/10/24 12:52 13:55 14:15 WBC RBC Hgb Hct MCV MCH MCHC RDW Plt Count MPV Immature Gran % (Auto) Neut % (Auto) Lymph % (Auto) [place] % (Auto) Eos % (Auto) Baso % (Auto) Lymph # (Auto) [place] # (Auto) Eos # (Auto) Baso # (Auto) Abs Immat Gran (auto) Absolute Neuts (auto) Absolute Nucleated RBC Nucleated RBC % PT INR APTT Puncture Site ABG pH ABG pCO2 ABG pO2 ABG PO2/FiO2 Ratio ABG HCO3 ABG O2 Saturation ABG O2 Content ABG Base Excess A-a Gradient Oxyhemoglobin Carboxyhemoglobin Methemoglobin Reduced Hemoglobin Total Hemoglobin O2 Delivery Device O2 Liters/Min Minute Volume Vent Rate Vent Mode FiO2 Tidal Volume PEEP Peak Inspir Pressure Pressure Support Sodium Potassium Chloride Carbon Dioxide Anion Gap BUN Creatinine Estim Creat Clear Calc Estimated GFR Glucose POC Capillary Glucose 108 H 137 H 127 H Lactic Acid Calcium Phosphorus Magnesium Total Bilirubin AST ALT Alkaline Phosphatase Total Creatine Kinase Total Protein Albumin Triglycerides Nasal MRSA (PCR) 11/10/24 11/10/24 11/10/24 15:43 15:57 17:25 WBC RBC Hgb Hct MCV MCH MCHC RDW Plt Count MPV Immature Gran % (Auto) Neut % (Auto) Lymph % (Auto) [place] % (Auto) Eos % (Auto) Baso % (Auto) Lymph # (Auto) [place] # (Auto) Eos # (Auto) Baso # (Auto) Abs Immat Gran (auto) Absolute Neuts (auto) Absolute Nucleated RBC Nucleated RBC % PT INR APTT Puncture Site ABG pH ABG pCO2 ABG pO2 ABG PO2/FiO2 Ratio ABG HCO3 ABG O2 Saturation ABG O2 Content ABG Base Excess A-a Gradient Oxyhemoglobin Carboxyhemoglobin Methemoglobin Reduced Hemoglobin Total Hemoglobin O2 Delivery Device O2 Liters/Min Minute Volume Vent Rate Vent Mode FiO2 Tidal Volume PEEP Peak Inspir Pressure Pressure Support Sodium Potassium Chloride Carbon Dioxide Anion Gap BUN Creatinine Estim Creat Clear Calc Estimated GFR Glucose POC Capillary Glucose 126 H 137 H Lactic Acid Calcium Phosphorus Magnesium Total Bilirubin AST ALT Alkaline Phosphatase Total Creatine Kinase Total Protein Albumin Triglycerides Nasal MRSA (PCR) Not detected 11/10/24 11/10/24 11/10/24 18:20 18:32 19:39 WBC 16.3 H RBC 3.15 L Hgb 10.3 L Hct 31.2 L MCV 99.0 MCH 32.7 MCHC 33.0 RDW 12.6 Plt Count 186 MPV 9.3 Immature Gran % (Auto) Neut % (Auto) Lymph % (Auto) [place] % (Auto) Eos % (Auto) Baso % (Auto) Lymph # (Auto) [place] # (Auto) Eos # (Auto) Baso # (Auto) Abs Immat Gran (auto) Absolute Neuts (auto) Absolute Nucleated RBC Nucleated RBC % PT 15.2 H INR 1.2 APTT 27.3 Puncture Site ABG pH ABG pCO2 ABG pO2 ABG PO2/FiO2 Ratio ABG HCO3 ABG O2 Saturation ABG O2 Content ABG Base Excess A-a Gradient Oxyhemoglobin Carboxyhemoglobin Methemoglobin Reduced Hemoglobin Total Hemoglobin O2 Delivery Device O2 Liters/Min Minute Volume Vent Rate Vent Mode FiO2 Tidal Volume PEEP Peak Inspir Pressure Pressure Support Sodium Potassium Chloride Carbon Dioxide Anion Gap BUN Creatinine Estim Creat Clear Calc Estimated GFR Glucose POC Capillary Glucose 145 H 142 H Lactic Acid 2.8 H Calcium Phosphorus Magnesium Total Bilirubin AST ALT Alkaline Phosphatase Total Creatine Kinase 735 H Total Protein Albumin Triglycerides 120 Nasal MRSA (PCR) 11/10/24 11/10/24 11/10/24 20:28 20:32 21:44 WBC RBC Hgb Hct MCV MCH MCHC RDW Plt Count MPV Immature Gran % (Auto) Neut % (Auto) Lymph % (Auto) [place] % (Auto) Eos % (Auto) Baso % (Auto) Lymph # (Auto) [place] # (Auto) Eos # (Auto) Baso # (Auto) Abs Immat Gran (auto) Absolute Neuts (auto) Absolute Nucleated RBC Nucleated RBC % PT INR APTT Puncture Site ABG pH ABG pCO2 ABG pO2 ABG PO2/FiO2 Ratio ABG HCO3 ABG O2 Saturation ABG O2 Content ABG Base Excess A-a Gradient Oxyhemoglobin Carboxyhemoglobin Methemoglobin Reduced Hemoglobin Total Hemoglobin O2 Delivery Device O2 Liters/Min Minute Volume Vent Rate Vent Mode FiO2 Tidal Volume PEEP Peak Inspir Pressure Pressure Support Sodium 139 Potassium 4.2 Chloride 105 Carbon Dioxide 27 Anion Gap 7 BUN 22 H Creatinine 1.11 Estim Creat Clear Calc 68 Estimated GFR > 60 Glucose 155 H POC Capillary Glucose 149 H 154 H Lactic Acid Calcium 7.7 L Phosphorus 3.5 Magnesium 2.0 Total Bilirubin AST ALT Alkaline Phosphatase Total Creatine Kinase Total Protein Albumin Triglycerides Nasal MRSA (PCR) 11/10/24 11/10/24 11/10/24 22:32 22:34 23:46 WBC RBC Hgb Hct MCV MCH MCHC RDW Plt Count MPV Immature Gran % (Auto) Neut % (Auto) Lymph % (Auto) [place] % (Auto) Eos % (Auto) Baso % (Auto) Lymph # (Auto) [place] # (Auto) Eos # (Auto) Baso # (Auto) Abs Immat Gran (auto) Absolute Neuts (auto) Absolute Nucleated RBC Nucleated RBC % PT INR APTT Puncture Site ABG pH ABG pCO2 ABG pO2 ABG PO2/FiO2 Ratio ABG HCO3 ABG O2 Saturation ABG O2 Content ABG Base Excess A-a Gradient Oxyhemoglobin Carboxyhemoglobin Methemoglobin Reduced Hemoglobin Total Hemoglobin O2 Delivery Device O2 Liters/Min Minute Volume Vent Rate Vent Mode FiO2 Tidal Volume PEEP Peak Inspir Pressure Pressure Support Sodium Potassium Chloride Carbon Dioxide Anion Gap BUN Creatinine Estim Creat Clear Calc Estimated GFR Glucose POC Capillary Glucose 152 H 143 H Lactic Acid 2.3 H Calcium Phosphorus Magnesium Total Bilirubin AST ALT Alkaline Phosphatase Total Creatine Kinase 678 H Total Protein Albumin Triglycerides Nasal MRSA (PCR) 11/11/24 11/11/24 11/11/24 00:40 01:36 02:38 WBC RBC Hgb Hct MCV MCH MCHC RDW Plt Count MPV Immature Gran % (Auto) Neut % (Auto) Lymph % (Auto) [place] % (Auto) Eos % (Auto) Baso % (Auto) Lymph # (Auto) [place] # (Auto) Eos # (Auto) Baso # (Auto) Abs Immat Gran (auto) Absolute Neuts (auto) Absolute Nucleated RBC Nucleated RBC % PT INR APTT Puncture Site ABG pH ABG pCO2 ABG pO2 ABG PO2/FiO2 Ratio ABG HCO3 ABG O2 Saturation ABG O2 Content ABG Base Excess A-a Gradient Oxyhemoglobin Carboxyhemoglobin Methemoglobin Reduced Hemoglobin Total Hemoglobin O2 Delivery Device O2 Liters/Min Minute Volume Vent Rate Vent Mode FiO2 Tidal Volume PEEP Peak Inspir Pressure Pressure Support Sodium Potassium Chloride Carbon Dioxide Anion Gap BUN Creatinine Estim Creat Clear Calc Estimated GFR Glucose POC Capillary Glucose 156 H 134 H 133 H Lactic Acid Calcium Phosphorus Magnesium Total Bilirubin AST ALT Alkaline Phosphatase Total Creatine Kinase Total Protein Albumin Triglycerides Nasal MRSA (PCR) 11/11/24 11/11/24 05:09 05:14 WBC 9.8 RBC 3.06 L Hgb 10.1 L Hct 30.5 L MCV 99.7 MCH 33.0 MCHC 33.1 RDW 12.4 Plt Count 154 MPV 9.4 Immature Gran % (Auto) 0.2 Neut % (Auto) 84.5 H Lymph % (Auto) 5.9 L [place] % (Auto) 8.5 Eos % (Auto) 0.4 Baso % (Auto) 0.5 Lymph # (Auto) 0.58 L [place] # (Auto) 0.8 H Eos # (Auto) 0.0 Baso # (Auto) 0.1 Abs Immat Gran (auto) 0.02 Absolute Neuts (auto) 8.3 H Absolute Nucleated RBC 0.000 Nucleated RBC % 0.0 PT 14.6 INR 1.1 APTT 29.1 Puncture Site Left radial ABG pH 7.423 ABG pCO2 40.6 ABG pO2 64.0 L ABG PO2/FiO2 Ratio 1.07 ABG HCO3 25.9 ABG O2 Saturation 92.9 L ABG O2 Content 14.6 L ABG Base Excess 1.4 A-a Gradient 319.1 Oxyhemoglobin 91.8 Carboxyhemoglobin 0.0 Methemoglobin 0.3 Reduced Hemoglobin 7.9 H Total Hemoglobin 11.3 L O2 Delivery Device Ventilator O2 Liters/Min Not Reportable Minute Volume Not Reportable Vent Rate 22 Vent Mode Cmv FiO2 60 Tidal Volume 480 PEEP 5 Peak Inspir Pressure Not Reportable Pressure Support Not Reportable Sodium 139 Potassium 3.7 Chloride 104 Carbon Dioxide 27 Anion Gap 8 BUN 21 H Creatinine 1.13 Estim Creat Clear Calc 67 Estimated GFR > 60 Glucose 128 H POC Capillary Glucose Lactic Acid 2.0 Calcium 7.8 L Phosphorus 2.8 Magnesium 2.0 Total Bilirubin 0.7 AST 86 H ALT 51 H Alkaline Phosphatase 43 Total Creatine Kinase 684 H Total Protein 6.0 L Albumin 3.4 L Triglycerides Nasal MRSA (PCR)
[2024-11-11] MEDS: PROPOFOL IV EMULSION 100 ML 8.58 MG IV CONT (10:40)
[2024-11-11 11:55] LABS: Creatine Kinase 638 U/L (55-170)
[2024-11-11 11:57] LABS: Glucose Point of Care 115 mg/dl (65-105)
[2024-11-11 11:57] LABS: Lactic Acid Reflex 2.1 mmol/L (0.7-2.0)
--- NOTE | 2024-11-11 12:36 | W.PM.PROC2 ---
Procedure Note - Detailed Date of Procedure 11/11/24 Pre-op Diagnosis right-sided pneumothorax Post-op Diagnosis Same Procedure Performed placement of right chest tube Surgeon Charmaine Lockwood MD Continuity Editor [facility] Anesthesia General and Local Indications 68-year-old male with right-sided pneumothorax likely secondary to barotrauma Findings right pneumothorax Description of Procedure Patient was placed in the supine position and consent was obtained. I began by localizing the right chest at the area of our anticipated incision, at the level of the nipple and anterior axillary line. I then prepped and draped the area. A time-out was done to verify the patient's identity, as well as the procedure being performed. I then made an incision with a 15 blade scalpel at the level the nipple and anterior axillary. This incision was carried down to the chest cavity. I then used a Karie clamp to gain access into the chest at the 4th intercostal space. Immediately upon getting into the chest a large lemus of air was evacuated. I then placed a 20 [place] chest tube directing this posterior and superior. I then sutured the chest tube in place. Vaseline gauze and sterile dressing were applied and the chest tube was connected to the atrium device. The patient tolerated the procedure well. Implants right-sided 20 [place] chest tube Estimated Blood Loss 5 Drains No Packing No Pathology None sent Complications No immediate complications Condition Critical Disposition ICU [facility] Billing Surgery - Charge Forward: Surgery Billing
[2024-11-11] MEDS: VANCOMYCIN 1,500 MG/NS 500 ML 1,500 MG/500 ML BAG 250 MG IVPB (13:16)
[2024-11-11 13:45] LABS: Reflex Lactic Acid Yes or No Add Lactic
[2024-11-11] MEDS: dexmedeTOMIDine 400 MCG/100 ML 400 MCG/100 ML BAG 9.53 MCG IV CONT (14:24)
[2024-11-11] MEDS: cefTRIAXone 2 GM/NS 100 ML 2 GM/100 ML BAG IVPB (14:40)
[2024-11-11] MEDS: DORNASE ALFA INH SOLN 1 MG/ML 2.5 ML AMP 2.5 MG INHALATION (14:49)
[2024-11-11 14:55] LABS: Lactic Acid 2.6 mmol/L (0.7-2.0); Triglycerides 127 mg/dL (<150)
[2024-11-11] MEDS: PROPOFOL IV EMULSION 100 ML 2.86 MG IV CONT (15:10)
[2024-11-11] MEDS: NOREPINEPHRINE 8 MG/D5W 250 ML 8 MG/250 ML BAG 9.38 MG IV CONT (15:50)
[2024-11-11] MEDS: AZITHROMYCIN 500 MG/NS 250 ML 500 MG/250 ML BAG 250 MG IVPB (17:00)
[2024-11-11 17:22] LABS: Glucose Point of Care 155 mg/dl (65-105)
[2024-11-11] MEDS: LACTATED RINGERS 1,000 ML 100 ML IV CONT (18:10)
--- NOTE | 2024-11-11 20:33 | PC.NURSE ---
HARI Novoa with [facility] facility called and given SBAR report over telephone at 1837. Patient to travel by flight to [facility]. [facility] team arrived at 1845 to transport patient. Last vitals taken at 1858, patient taken off hospitals monitors and placed on travel flight monitoring devices. Patient loaded to stretcher with bilateral chest tubes, medications as last documented, endotracheal tube, oral gastric tube, and central line intact. Patient transported to helicopter pad and loaded into helicopter at 2003, patient to be transported to [facility]. HARI Soto with [facility] called and updated of patient arrival status at 2007.
[2024-11-12 09:48] LABS: Glucose Point of Care 123 mg/dl (65-105)
== END 2024-11-11 20:04 | disposition short-term general hospital (02) | DRG 321 ==
LOC: ANHED 16:16 → ANHICU 17:00
PROVIDERS: Internal Medicine; Physician Assistant; Admitting Provider Internal Medicine; Emergency Provider Student in an Organized Health Care Education/Training Program; PCP Family Medicine; Visit Provider Internal Medicine
PROC: 4A023N7 Measurement of Cardiac Sampling and Pressure, Left Heart, Percutaneous Approach (ICD-10-PCS; CPT 93452; principal; 2024-11-09 16:15)
PROC: 027034Z Dilation of Coronary Artery, One Artery with Drug-eluting Intraluminal Device, Percutaneous Approach (ICD-10-PCS; 2024-11-09 16:15)
PROC: 027034Z Dilation of Coronary Artery, One Artery with Drug-eluting Intraluminal Device, Percutaneous Approach (ICD-10-PCS; 2024-11-09 16:15)
DX: I21.19 ST elevation (STEMI) myocardial infarction involving other coronary artery of inferior wall (principal); D65 Disseminated intravascular coagulation [defibrination syndrome]; I46.2 Cardiac arrest due to underlying cardiac condition; I49.01 Ventricular fibrillation; J96.01 Acute respiratory failure with hypoxia; T85.698A Other mechanical complication of other specified internal prosthetic devices, implants and grafts, initial encounter; J95.859 Other complication of respirator [ventilator]; J95.811 Postprocedural pneumothorax; J94.8 Other specified pleural conditions; E78.5 Hyperlipidemia, unspecified; I25.5 Ischemic cardiomyopathy; G62.9 Polyneuropathy, unspecified; I48.91 Unspecified atrial fibrillation; R73.9 Hyperglycemia, unspecified; D64.9 Anemia, unspecified; D69.6 Thrombocytopenia, unspecified; I10 Essential (primary) hypertension; N52.9 Male erectile dysfunction, unspecified; R45.1 Restlessness and agitation; Z87.891 Personal history of nicotine dependence; Z87.442 Personal history of urinary calculi
CPT/HCPCS: 31500; 36415; 36430; 36600; 70450; 71045; 71250; 74176; 80048; 80053; 80061; 80307; 82375; 82550; 82805; 82948; 83036; 83050; 83605; 83690; 83735; 84100; 84443; 84478; 84484; 85018; 85025; 85027; 85380; 85384; 85610; 85730; 86900; 86901; 87040; 87070; 87205; 87637; 87641; 92950; 92978; 93005; 93458; 94002; 94003; 94640; 96374; 96375; 96376; 99291; A9270; C1725; C1729; C1751; C1753; C1757; C1769; C1874; C1887; C1894; C8929; C9606; J0171; J0456; J0583; J0696; J1327; J1644; J1953; J2003; J2250; J2305; J2470; J2704; J3010; J3370; J3430; J7040; J7120; J7639; P9012; P9017; Q9957